=== PATIENT | female | born 1955 | race Caucasian/White ===

== ENCOUNTER → 2020-03-22 10:59 | Outpatient (BNVA) | payer MEDICARE, SELFPAY | PROVIDERS: PCP Internal Medicine; Referring Provider Internal Medicine; Visit Provider Internal Medicine Gastroenterology | DX: R29.898 Other symptoms and signs involving the musculoskeletal system (principal); R07.9 Chest pain, unspecified | CPT/HCPCS: Q3014 ==

== ENCOUNTER → 2020-03-23 13:21 | Outpatient (BNVA) | payer MEDICARE, SELFPAY | PROVIDERS: PCP Internal Medicine; Referring Provider Internal Medicine; Visit Provider Internal Medicine Cardiovascular Disease | DX: I35.0 Nonrheumatic aortic (valve) stenosis (principal); I71.2 Thoracic aortic aneurysm, without rupture; E11.65 Type 2 diabetes mellitus with hyperglycemia; R06.02 Shortness of breath; R07.89 Other chest pain | CPT/HCPCS: 93005; 99202 ==

== ENCOUNTER → 2020-03-28 07:58 | Outpatient (REF) | payer MEDICARE, SELFPAY ==
--- NOTE | 2020-03-28 08:00 | CA_ITS ---
Acquisition Time: 2020-03-28 09:24:21 Total Exercise Time: 00:05:15 Test Indications: cp Medications: see chart Protocol: CAMACHO Max HR: 137 BPM 88% of Pred: 154 BPM Max BP: 180/060 mmHG Max Work Load: 7.0 METS Exercise stress test with exercise 5 min 15 sec of Camacho protocol with mild sob, with reported discomfort under left breast at baseline which did not change with exercise, with isolated PVCs, with normotensive response to exercise, without EKG changes meeting criteria for ischemia. Nuclear images pending. Test reviewed with Dr Coombs. Referred By: Chris Lei Overread By: DEBBIE ISBELL
--- NOTE | 2020-03-28 09:00 | NM_ITS ---
EXERCISE MYOCARDIAL PERFUSION STUDY INDICATION: Chest pain, assess for coronary artery disease and ischemia TECHNIQUE: The patient was brought in for an exercise perfusion study on 03/28/2020. Patient performed exercise as per Ron protocol and was injected 30 mCi of sestamibi once target heart rate was achieved. Images were obtained using the SPECT gamma camera interlaced with the gating device. Images were obtained in supine position. Resting perfusion study was performed on 03/30/2020. Patient was administered 30 mCi of sestamibi intravenously at rest. Images were then obtained in supine position. Total DLP 84mGy-cm. Images were processed with the software and compared side to side in short axis, horizontal long axis and vertical long axis views. FINDINGS: Raw images were reviewed. The stress perfusion study showed diminished tracer uptake along the mid to distal anterolateral wall. With CT attenuation correction, this improves significantly suggesting soft tissue attenuation. The gated study shows normal LV systolic function with calculated LVEF of 72%. LV cavity is normal in size. The gated study shows normal wall thickening and contraction of segments. Resting study shows no significant perfusion abnormality. Gating at rest reveals normal wall motion with ejection fraction at 71%. The findings are consistent with reversible anterolateral perfusion defect but with improvement during CT attenuation correction suggesting soft tissue artifact.. NM/NM cardiolite stress test IMPRESSION: 1. Myocardial perfusion imaging study shows reversible mid to distal anterolateral perfusion defect suspected to be from soft tissue attenuation artifact. Less likely to be from true ischemia. 2. Gated LVEF is 72% during stress and 71% during rest. 3. Transient ischemic dilatation not present. EKG component of the test reported separately.
== END ==
LOC: HO.CARD 07:58
PROVIDERS: PCP Internal Medicine; Visit Provider Internal Medicine Cardiovascular Disease
DX: E11.65 Type 2 diabetes mellitus with hyperglycemia (principal); R06.02 Shortness of breath; R07.89 Other chest pain
CPT/HCPCS: 78452; 93017; A9500

== ENCOUNTER 2020-04-13 08:57 | Outpatient (REF) | payer MEDICARE, SELFPAY ==
[2020-04-13 09:34] LABS: Glucose Urine UA NEG (NEG); Leukocyte Esterase Urine NEG (NEG); Nitrite Urine NEG (NEG); Urine Blood NEG (NEG); Urine Ketones NEG (NEG); Urine Protein NEG (NEG-TRACE)
[2020-04-13 09:36] LABS: Appearance Urine CLEAR; Color Urine YELLOW
[2020-04-13 09:54] LABS: Cholesterol 239 mg/dL; HDL Cholesterol 52 mg/dL; LDL Cholesterol Calculated 156 mg/dl; Triglycerides 156 mg/dL
== END 2020-04-13 08:58 | disposition home or self-care (01) ==
LOC: HO.LAB 08:57
PROVIDERS: Absent Provider Internal Medicine Cardiovascular Disease; PCP Internal Medicine; Visit Provider Internal Medicine
DX: I35.0 Nonrheumatic aortic (valve) stenosis (principal); E11.65 Type 2 diabetes mellitus with hyperglycemia; M54.9 Dorsalgia, unspecified
CPT/HCPCS: 80061; 81003

== ENCOUNTER 2020-04-14 12:40 | Outpatient (REF) | payer MEDICARE, SELFPAY ==
--- NOTE | 2020-04-14 12:45 | XR_ITS ---
EXAMINATION: XR LUMBOSACRAL SPINE XR THORACIC SPINE CLINICAL INFORMATION: Dorsalgia COMPARISON: Lateral chest radiograph 12/25/2018 TECHNIQUE: AP and lateral views of the lumbar spine with coned down AP and lateral spot views of the lumbosacral junction. AP, lateral, and swimmer's views of the thoracic spine FINDINGS: Normal sagittal alignment of the thoracic spine. Mild loss of disc height at several midthoracic levels. No thoracic compression fracture seen however. There is S-shaped thoracolumbar scoliosis, convex left in the thoracic spine. Posterior elements are intact. Suture anchors in the right humeral head are seen. Mid cervical degenerative disc disease. There is transitional lumbosacral anatomy. 5 nonrib-bearing lumbar type vertebral bodies are seen. The next segment has prominent transverse processes bilaterally and could represent a sixth lumbar segment. There is loss of disc height between this lowest segment and the sacrum, L6-S1. Normal sagittal alignment of the lumbar spine. Mild convex right lumbar rotoscoliosis. Lower lumbar facet arthropathy is present. No lumbar compression fracture. There is anterior osteophytosis from the superior endplate of L3. XR/XR thoracic spine 2V IMPRESSION: No acute osseous abnormality of the thoracic or lumbar spine. S-shaped thoracolumbar scoliosis. Multilevel degenerative changes, fully described above. There is transitional lumbosacral anatomy with 5 nonrib-bearing lumbar type vertebral bodies and a transitional segment with prominent transverse processes designated L6 for this report.
--- NOTE | 2020-04-14 12:45 | XR_ITS ---
EXAMINATION: XR LUMBOSACRAL SPINE XR THORACIC SPINE CLINICAL INFORMATION: Dorsalgia COMPARISON: Lateral chest radiograph 12/25/2018 TECHNIQUE: AP and lateral views of the lumbar spine with coned down AP and lateral spot views of the lumbosacral junction. AP, lateral, and swimmer's views of the thoracic spine FINDINGS: Normal sagittal alignment of the thoracic spine. Mild loss of disc height at several midthoracic levels. No thoracic compression fracture seen however. There is S-shaped thoracolumbar scoliosis, convex left in the thoracic spine. Posterior elements are intact. Suture anchors in the right humeral head are seen. Mid cervical degenerative disc disease. There is transitional lumbosacral anatomy. 5 nonrib-bearing lumbar type vertebral bodies are seen. The next segment has prominent transverse processes bilaterally and could represent a sixth lumbar segment. There is loss of disc height between this lowest segment and the sacrum, L6-S1. Normal sagittal alignment of the lumbar spine. Mild convex right lumbar rotoscoliosis. Lower lumbar facet arthropathy is present. No lumbar compression fracture. There is anterior osteophytosis from the superior endplate of L3. XR/XR lumbar spine 2-3V IMPRESSION: No acute osseous abnormality of the thoracic or lumbar spine. S-shaped thoracolumbar scoliosis. Multilevel degenerative changes, fully described above. There is transitional lumbosacral anatomy with 5 nonrib-bearing lumbar type vertebral bodies and a transitional segment with prominent transverse processes designated L6 for this report.
== END 2020-04-14 12:41 | disposition home or self-care (01) ==
LOC: HO.XRAY 12:40
PROVIDERS: PCP Internal Medicine; Visit Provider Internal Medicine
DX: M54.9 Dorsalgia, unspecified (principal); M54.5 Low back pain
CPT/HCPCS: 72070; 72100

== ENCOUNTER → 2020-04-21 15:03 | Outpatient (BNVA) | payer MEDICARE, SELFPAY | PROVIDERS: PCP Internal Medicine; Visit Provider Internal Medicine Cardiovascular Disease | DX: I35.0 Nonrheumatic aortic (valve) stenosis (principal); I71.2 Thoracic aortic aneurysm, without rupture; R06.02 Shortness of breath | CPT/HCPCS: 99212 ==

== ENCOUNTER → 2020-04-27 08:00 | Outpatient (BNVA) | payer MEDICARE, SELFPAY | PROVIDERS: PCP Internal Medicine; Visit Provider Internal Medicine | DX: E11.65 Type 2 diabetes mellitus with hyperglycemia (principal); E78.5 Hyperlipidemia, unspecified; I10 Essential (primary) hypertension; E55.9 Vitamin D deficiency, unspecified | CPT/HCPCS: 82947; 99202 ==

== ENCOUNTER 2020-04-27 09:38 | Outpatient (REF) | payer MEDICARE, SELFPAY ==
[2020-04-27 10:55] LABS: Alanine Aminotransferase 21 U/L (0-31); Albumin Level 4.4 g/dL (3.5-5.0); Alkaline Phosphatase 68 U/L (39-117); Anion Gap 11 (12-20); Aspartate Amino Transferase 15 U/L (5-31); Bilirubin Total 0.4 mg/dL (0.0-1.0); Blood Urea Nitrogen 17 mg/dL (9-16); Calcium 9.3 mg/dL (8.4-10.2); Carbon Dioxide 29 mmol/L (22-29); Chloride 103 mmol/L (96-108); Cholesterol 164 mg/dL; Estimated Glomerular Filt Rate > 60; Glucose Random 194 mg/dL (60-115); HDL Cholesterol 51 mg/dL; LDL Cholesterol Calculated 86 mg/dl; Potassium 4.8 mmol/l (3.3-5.1); Sodium 138 mmol/L (135-145); Total Protein 7.1 g/dL (6.5-8.0); Triglycerides 135 mg/dL
[2020-04-27 11:00] LABS: Estimated Average Glucose 137 mg/dL; Hemoglobin A1c % 6.4 %
[2020-04-27 11:18] LABS: Vitamin D 25-OH Total 16.2 ng/mL (>30)
[2020-04-27 14:54] LABS: Creatinine Urine 142.68 mg/dL; Microalbum/Creatinine Ratio Ur 5.6 ug/mg cr
[2020-04-28 06:17] LABS: LDL Cholesterol Direct 93 mg/dL (<100)
== END 2020-04-27 09:39 | disposition home or self-care (01) ==
LOC: HO.10HDL 09:38
PROVIDERS: Visit Provider Internal Medicine
DX: E11.65 Type 2 diabetes mellitus with hyperglycemia (principal); E55.9 Vitamin D deficiency, unspecified
CPT/HCPCS: 36415; 80053; 80061; 82043; 82306; 83036; 83721

== ENCOUNTER → 2020-05-04 15:01 | Outpatient (BNVA) | payer MEDICARE, SELFPAY | PROVIDERS: PCP Internal Medicine; Visit Provider Anesthesiology | DX: M79.18 Myalgia, other site (principal) | CPT/HCPCS: 99202 ==

== ENCOUNTER → 2020-05-19 08:57 | Outpatient (BNVA) | payer MEDICARE, SELFPAY | PROVIDERS: PCP Internal Medicine; Visit Provider Dietitian, Registered ==

== ENCOUNTER → 2020-06-17 08:55 | Outpatient (BNVA) | payer MEDICARE, SELFPAY | PROVIDERS: PCP Internal Medicine; Visit Provider Dietitian, Registered ==

== ENCOUNTER → 2020-06-29 10:53 | Outpatient (BNVA) | payer MEDICARE, SELFPAY | PROVIDERS: PCP Internal Medicine; Visit Provider Internal Medicine | DX: E11.65 Type 2 diabetes mellitus with hyperglycemia (principal); E78.5 Hyperlipidemia, unspecified; E55.9 Vitamin D deficiency, unspecified; I10 Essential (primary) hypertension; Z79.84 Long term (current) use of oral hypoglycemic drugs; Z71.3 Dietary counseling and surveillance | CPT/HCPCS: 82947; 99212 ==

== ENCOUNTER → 2020-08-19 09:28 | Outpatient (BNVA) | payer MEDICARE, SELFPAY | PROVIDERS: PCP Internal Medicine; Visit Provider Dietitian, Registered | DX: E11.65 Type 2 diabetes mellitus with hyperglycemia (principal) | CPT/HCPCS: 97803 ==

== ENCOUNTER 2020-09-27 07:32 | Outpatient (REF) | payer MEDICARE, SELFPAY ==
[2020-09-27 09:39] LABS: Estimated Average Glucose 148 mg/dL; Hemoglobin A1c % 6.8 %
[2020-09-27 09:43] LABS: Alanine Aminotransferase 20 U/L (0-31); Albumin Level 4.1 g/dL (3.5-5.0); Alkaline Phosphatase 62 U/L (39-117); Anion Gap 12 (12-20); Aspartate Amino Transferase 18 U/L (5-31); Bilirubin Total 0.7 mg/dL (0.0-1.0); Blood Urea Nitrogen 14 mg/dL (9-16); Calcium 9.2 mg/dL (8.4-10.2); Carbon Dioxide 28 mmol/L (22-29); Chloride 105 mmol/L (96-108); Cholesterol 120 mg/dL; Estimated Glomerular Filt Rate > 60; Glucose Random 135 mg/dL (60-115); HDL Cholesterol 44 mg/dL; LDL Cholesterol Calculated 62 mg/dl; Potassium 4.8 mmol/L (3.3-5.1); Sodium 140 mmol/L (135-145); Total Protein 6.5 g/dL (6.5-8.0); Triglycerides 71 mg/dL
[2020-09-27 10:05] LABS: Vitamin D 25-OH Total 45.7 ng/mL (>30)
[2020-09-28 17:56] LABS: LDL Cholesterol Direct 57 mg/dL (<100)
== END 2020-09-27 07:33 | disposition home or self-care (01) ==
LOC: HO.10HDL 07:32
PROVIDERS: Visit Provider Internal Medicine
DX: E55.9 Vitamin D deficiency, unspecified (principal); E11.65 Type 2 diabetes mellitus with hyperglycemia; I35.0 Nonrheumatic aortic (valve) stenosis
CPT/HCPCS: 36415; 80053; 80061; 82306; 83036; 83721

== ENCOUNTER → 2020-10-05 10:29 | Outpatient (BNVA) | payer MEDICARE, SELFPAY | PROVIDERS: PCP Internal Medicine; Visit Provider Nurse Practitioner Gerontology | DX: E11.65 Type 2 diabetes mellitus with hyperglycemia (principal); E11.40 Type 2 diabetes mellitus with diabetic neuropathy, unspecified; E78.5 Hyperlipidemia, unspecified; E55.9 Vitamin D deficiency, unspecified; I10 Essential (primary) hypertension; I25.10 Atherosclerotic heart disease of native coronary artery without angina pectoris; I71.4 Abdominal aortic aneurysm, without rupture; Z91.018 Allergy to other foods; Z79.82 Long term (current) use of aspirin; Z79.4 Long term (current) use of insulin; Z79.899 Other long term (current) drug therapy | CPT/HCPCS: 82947; 99212 ==

== ENCOUNTER 2020-10-12 16:27 | Outpatient (REF) | payer MEDICARE, SELFPAY ==
--- NOTE | ~2020-10-12 | CT_ITS ---
EXAMINATION: CT CHEST WITHOUT CONTRAST CLINICAL INFORMATION: Chest pain COMPARISON: Chest x-ray December 2019 and barium swallow December 2018 TECHNIQUE: Multidetector volumetric CT imaging of the chest was done. Axial MIP volume rendering provided. Sagittal and coronal reformatted images were obtained. This CT examination was performed using dose optimization techniques as appropriate, variously including the following: *Automated exposure control *Adjustment of mA and/or kV according to patient size (this includes techniques or standardized protocols for targeted exams where dose is matched to indication/reason for exam; i.e. extremities or head) *Use of iterative reconstruction technique DLP: 154 mGy-cm FINDINGS: LUNGS: There is a 5 mm heterogeneous or semisolid superior segment right lower lobe nodule image 221 series 5. On sagittal and coronal reconstructed images this appears linear and may represent an area of subsegmental atelectasis. There is a 6 mm calcified right middle lobe nodule axial image 283 series 5. There is a 3 mm peripheral calcified left lower lobe nodule axial image 297 series 5. MEDIASTINUM: There is wall thickening of the distal esophagus. There is mild coronary artery calcification. The mediastinum is otherwise normal. PLEURA: There is no pleural effusion. No pleural mass or thickening. AXILLA: No lymphadenopathy. UPPER ABDOMEN: Unremarkable. OSSEOUS STRUCTURES: There are mild degenerative changes of the spine. CT/CT chest wo con IMPRESSION: Small pulmonary nodules. According to the UPDATED 2017 Fleischner Society recommendations, the advised follow-up imaging for less than 6 mm nodule: Low risk, no chest CT follow-up and high risk, optional chest CT follow-up in one year. Wall thickening of the mid and distal thoracic esophagus. Fluoroscopy exam or endoscopy should be considered. Mild coronary artery calcification.
== END 2020-10-12 16:28 | disposition home or self-care (01) ==
LOC: HO.CT 16:27
PROVIDERS: PCP Internal Medicine; Visit Provider Internal Medicine
DX: R07.89 Other chest pain (principal)
CPT/HCPCS: 71250

== ENCOUNTER 2020-11-04 15:20 | Outpatient (REF) | payer MEDICARE, SELFPAY ==
--- NOTE | ~2020-11-04 | CT_ITS ---
EXAMINATION: CT SINUS WITHOUT CONTRAST CLINICAL INFORMATION: Sinusitis. COMPARISON: None TECHNIQUE: 2 mm thin axial and reformatted 2 mm thin sagittal and coronal images of the sinuses were obtained without contrast. This CT examination was performed using dose optimization techniques as appropriate, variously including the following: *Automated exposure control *Adjustment of mA and/or kV according to patient size (this includes techniques or standardized protocols for targeted exams where dose is matched to indication/reason for exam; i.e. extremities or head) *Use of iterative reconstruction technique DLP: 90 mGy-cm FINDINGS: FRONTAL SINUSES AND DRAINAGE PATHWAYS: Normal. MAXILLARY SINUSES AND DRAINAGE PATHWAYS: Normal. The infundibula are patent. ETHMOID SINUSES: Normal. The ethmoid roofs are symmetric, with olfactory fossa depth of 0.3 cm on the right and 0.3 cm on the left. SPHENOID SINUSES AND DRAINAGE PATHWAYS: Normal. The sphenoid ostia are patent. The carotid canals are covered by bone. NASAL CAVITY/NASOPHARYNX: The nasal cavity is clear. There is no nasal septal deviation/spurring. The nasopharynx is symmetric. ADDITIONAL RELEVANT FINDINGS: No periapical disease is seen. The TMJs articulate normally. The orbits and skull base soft tissues are unremarkable. The middle ear cavities and mastoid air cells are clear. Limited evaluation demonstrates no acute intracranial findings. CT/CT sinus wo con IMPRESSION: Unremarkable CT sinus exam.
== END 2020-11-04 15:21 | disposition home or self-care (01) ==
LOC: HO.CT 15:20
PROVIDERS: Visit Provider Psychiatry & Neurology Neurology
DX: J32.9 Chronic sinusitis, unspecified (principal)
CPT/HCPCS: 70486

== ENCOUNTER → 2020-11-16 11:12 | Outpatient (BNVA) | payer MEDICARE, SELFPAY | PROVIDERS: PCP Internal Medicine; Visit Provider Internal Medicine | DX: R91.8 Other nonspecific abnormal finding of lung field (principal); R07.9 Chest pain, unspecified | CPT/HCPCS: 99212 ==

== ENCOUNTER 2020-12-20 09:40 | Outpatient (REF) | payer MEDICARE, SELFPAY ==
[2020-12-20 10:50] LABS: MANUAL DIFF FLAG NO
[2020-12-20 11:04] LABS: Basophils Percent Auto 0.6 % (0-2); Eosinophils Absolute Auto 0.1 X10*3/uL (0.0-0.4); Eosinophils Percent Auto 2.6 % (0-4); Hematocrit 39.5 % (37-47); Hemoglobin 13.1 g/dl (12.0-16.0); Imm Gran Abs Auto 0.01 X10*3/uL (0.00-0.03); Imm Gran Pct Auto 0.2 % (0.0-0.4); Lymphocytes Absolute Auto 2.1 X10*3/uL (1.2-4.9); Lymphocytes Percent Auto 38.1 % (20-40); Mean Corpuscular HGB Conc 33.2 g/dl (31.0-35.0); Mean Corpuscular Hemoglobin 28.2 pg (27.0-33.0); Mean Corpuscular Volume 84.9 fL (80-98); Mean Platelet Volume 10.9 fL (9.4-12.3); Monocytes Absolute Auto 0.6 X10*3/uL (0.1-1.2); Monocytes Percent Auto 11.5 % (2-11); Neutrophils Absolute Auto 2.5 X10*3/uL (2.0-8.3); Platelet Count 259 X10*3/uL (160-400); Red Blood Count 4.65 X10*6/uL (4.20-5.50); Red Cell Distribution Width 12.1 % (11.0-16.0); White Blood Count 5.4 X10*3/uL (4.8-10.8)
[2020-12-20 11:44] LABS: Erythrocyte Sedimentation Rate 7 MM/HR (0-20)
[2020-12-20 12:32] LABS: Anion Gap 11 (12-20); Blood Urea Nitrogen 14 mg/dL (9-16); Calcium 9.5 mg/dL (8.4-10.2); Carbon Dioxide 28 mmol/L (22-29); Chloride 103 mmol/L (96-108); Cholesterol 128 mg/dL; Estimated Glomerular Filt Rate > 60; Glucose Random 99 mg/dL (60-115); HDL Cholesterol 46 mg/dL; LDL Cholesterol Calculated 55 mg/dl; Potassium 5.1 mmol/L (3.3-5.1); Sodium 137 mmol/L (135-145); Triglycerides 138 mg/dL
[2020-12-20 12:35] LABS: Appearance Urine CLEAR; Color Urine YELLOW; Glucose Urine UA NEG (NEG); Leukocyte Esterase Urine NEG (NEG); Nitrite Urine NEG (NEG); Specific Gravity - Urine 1.015 (1.005-1.025); Urine Blood NEG (NEG); Urine Ketones NEG (NEG); Urine Protein NEG (NEG-TRACE)
[2020-12-20 13:04] LABS: Bacteria Urine TRACE /LPF; RBC Urine 0 /HPF (0); Squamous Epithelial Cell Urine 1+ /LPF; WBC Urine 0 /HPF (0-4)
[2020-12-20 13:58] LABS: Creatinine Urine 44.63 mg/dL
== END 2020-12-20 09:41 | disposition home or self-care (01) ==
LOC: HO.LAB 09:40
PROVIDERS: Internal Medicine; PCP Internal Medicine; Visit Provider Psychiatry & Neurology Neurology
DX: E11.65 Type 2 diabetes mellitus with hyperglycemia (principal); I35.0 Nonrheumatic aortic (valve) stenosis; R13.10 Dysphagia, unspecified
CPT/HCPCS: 36415; 80048; 80061; 81001; 85025; 85652

== ENCOUNTER → 2021-02-17 10:24 | Outpatient (BNVA) | payer MEDICARE, SELFPAY | PROVIDERS: PCP Internal Medicine; Visit Provider Dietitian, Registered | DX: E11.65 Type 2 diabetes mellitus with hyperglycemia (principal) | CPT/HCPCS: 97803 ==

== ENCOUNTER 2021-05-30 11:33 | Outpatient (REF) | payer MEDICARE, SELFPAY ==
--- NOTE | ~2021-05-30 | US_ITS ---
EXAMINATION: US THYROID CLINICAL INFORMATION: Nontoxic single thyroid nodule. COMPARISON: MRI thoracic spine 03/11/2021. TECHNIQUE: Linear transducer grayscale and color Doppler examination with attention to the region of the thyroid. FINDINGS: SIZE: Measurements of the thyroid lobes and nodules are given in sagittal, anteroposterior and transverse dimensions respectively. Right Thyroid Lobe: 5.4 x 2.5 x 1.8 cm, volume 12.7 mL. Parenchyma: The gland echotexture is homogeneous. Thyroid vascularity is normal. Left Thyroid Lobe: 4.8 x 1.3 x 1.7 cm, volume 5.5 mL. Parenchyma: The gland echotexture is homogeneous. Thyroid vascularity is normal. Isthmus: 0.3 cm in maximum AP dimension. Estimated total number of nodules greater than or equal to 1 cm: 3. 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 Location: Right mid pole. Size: 2.2 x 1.4 x 1.7 cm, volume 2.94 mL. Nodule characteristics: Composition: Solid/almost completely solid (2). Echogenicity: Hypoechoic (2). Shape: Not taller than wide (0). Margins: Smooth (0). Echogenic Foci: Punctate echogenic foci (3). ACR TI-RADS total points: 7 ACR TI-RADS category: 5 2. Location: Right lower pole. Size: 1.4 x 0.5 x 0.9 cm, volume 0.25 mL. Nodule characteristics: Composition: Mixed cystic and solid (1). Echogenicity: Very hypoechoic (3). Shape: Not taller than wide (0). Margins: Smooth (0). Echogenic Foci: Punctate echogenic foci (3). ACR TI-RADS total points: 7 ACR TI-RADS category: 5 3. Location: Right lower pole. Size: 0.7 x 0.5 x 0.6 cm, volume 0.11 mL. Nodule characteristics: Composition: Spongiform (0). ACR TI-RADS total points: 0 ACR TI-RADS category: 1 4. Location: Right upper pole. Size: 0.4 x 0.4 x 0.4 cm, volume 0.3 mL. Nodule characteristics: Composition: Spongiform (0). ACR TI-RADS total points: 0 ACR TI-RADS category: 1 5. Location: Left mid pole. Size: 1.1 x 0.7 x 0.8 cm, volume 0.28 mL. Nodule characteristics: Composition: Solid/almost completely solid (2). Echogenicity: Isoechoic (1). Shape: Not taller than wide (0). Margins: Smooth (0). Echogenic Foci: None (0). ACR TI-RADS total points: 3 ACR TI-RADS category: 3 NODES: No lymphadenopathy is seen in the tissue surrounding the thyroid gland. US/US thyroid IMPRESSION: Two suspicious solid nodules in the mid pole and lower pole right lobe. Recommend ultrasound-guided fine-needle biopsy. Thyroid enlargement with significant enlargement of right lobe. ACR TI-RADS RECOMMENDATION REFERENCE: Ultrasound-guided fine-needle aspiration, followup ultrasound, no further follow up. * TR1 (0 point) and TR 2 (2 points): No FNA or follow up * TR3 (3 points): FNA if more than or equal to 2.5 cm in maximum dimension, followup ultrasound in 1, 3 and 5 years if 1.5 to 2.4 cm in maximum dimension. * TR4 (4-6 points): FNA if more than or equal to 1.5 cm in maximum dimension, followup ultrasound in 1, 2, 3 and 5 years if 1 to 1.4 cm in maximum dimension. * TR5 (more than or equal to 7 points): FNA if more than or equal to 1 cm in maximum dimension, followup ultrasound every year for 5 years if 0.5 to 0.9 cm in maximum dimension. * TR3, TR4 or TR5 nodules that are below the size threshold for follow up receive no follow up. Before meals
== END 2021-05-30 11:34 | disposition home or self-care (01) ==
LOC: HO.HMGCX 11:33
PROVIDERS: PCP Internal Medicine; Visit Provider Internal Medicine
DX: E04.1 Nontoxic single thyroid nodule (principal)
CPT/HCPCS: 76536

== ENCOUNTER → 2021-06-12 09:20 | Outpatient (REF) | payer MEDICARE, SELFPAY ==
--- NOTE | 2021-06-12 09:25 | CA_ITS ---
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 The calculated ejection fraction is 67% by biplane method. - Mild aortic valve calcification but there is no significant stenosis. - Small plaque is seen in the sino tubular ridge. Findings Left Ventricle Normal left ventricular cavity size. The left ventricular systolic function is normal. The calculated ejection fraction is 67% by biplane method. There is no evidence of regional wall motion abnormalities. Diastolic function is normal for age. There is mild septal asymmetric hypertrophy. Right Ventricle Normal right ventricular cavity size and systolic function. Atria Both atria are normal in size. Aortic Valve There is a normal trileaflet aortic valve. There is mild calcification of the aortic valve. The peak aortic velocity is 1.95 m/s with a calculated peak gradient of 15 mmHg. The mean gradient is 8 mmHg. The aortic valve area is 1.91 cm2. There is trace (trivial) aortic valve regurgitation. No significant stenosis. Mitral Valve There is mild mitral annular calcification. There is mild mitral valve regurgitation. There is no mitral valve stenosis. Pulmonic Valve The pulmonic valve was not well visualized. Tricuspid Valve Normal tricuspid valve structure. There is trace tricuspid valve regurgitation. The pulmonary artery systolic pressure is normal. Great Vessels The aortic annulus, sinuses of valsalva, and asc aorta are normal in size. Small plaque is seen in the sino tubular ridge. Venous The inferior vena cava is normal in size and collapses greater than 50% with inspiration. Pericardium/Pleural There is no evidence of pericardial effusion. Prior Study Comparison No significant change compared to prior study dated: 12/26/2018. Measurements 2D Linear Measurements IVSd: 1.11 0.6-0.9/0.6-1.0 cm LVIDd: 4.39 3.9-5.3/4.2-5.9 cm LVIDd Index: 2.55 2.4-3.2/2.2-3.1 cm/m2 LVIDs: 3.06 2.0-3.6 cm LVPWd: 0.84 0.7-1.1 cm Ao Root: 2.90 2.1-3.5 cm LA Diam: 3.40 2.7-3.8/3.0-4.0 cm LAIDs Index: 1.98 1.5-2.3 cm/m2 LV Mass: 177.42 67-162/88-224 g LV Mass Index: 103.15 43-95/49-115 g/m2 LVOT Diam: 2.00 3.0+(-)1.3 cm 2D Systolic Function EF 4C: 67.90 >55% EF 2C: 65.00 >55% EF BiP: 67.20 >55% Mitral Valve MV Pk E: 0.79 MV PK A: 1.25 MV Decel Time: 332.00 E/A: 0.60 E'Lateral: 9.57 E'Medial: 7.18 E/E' Med: 11.00 E/E' Lat: 8.30 PHT: 97.00 MVA PHT: 2.27 Decel [place]: 2.38 Aortic Valve AoV Pk Bradley: 1.95 AoV Mn Bradley: 1.29 AoV VTI: 0.48 AoV Pk Grad: 15.00 Aov Mn Grad: 8.00 LIANNE Cont.VTI: 1.91 LVOT LVOT Pk Bradley: 1.10 LVOT Mn Bradley: 0.74 LVOT VTI: 0.29 LVOT Pk Grad: 5.00 LVOT Mn Grad: 3.00 LVOT Diam: 2.00 LVOT Area: 3.14 Diastolic Function MV Pk E: 0.79 MV Pk A: 1.25 E/A: 0.60 E'Medial: 7.18 E/E' Med: 11.00 E' Laterial: 9.57 E/E' Lat: 8.30 Right Ventricle TAPSE (mm): 21.50 TVS' Bradley: 10.00 Tricuspid Valve TR Pk Bradley: 2.08 TR Pk Grad: 17.00 RA Press: 3.00 RVSP: 20.00 Great Vessels Aorta Ao Root-2D: 2.90 2.0-3.7 cm Ao Asc: 3.50 2.1-3.4 cm Ao Arch: 3.30 Updated in Other Vendor System with Status of Final Keith Zarate MD electronically signed on 06/12/2021 12:26:55 PM with status of Final
== END ==
LOC: HO.CARD 09:20
PROVIDERS: PCP Internal Medicine; Visit Provider Internal Medicine Cardiovascular Disease
DX: I35.0 Nonrheumatic aortic (valve) stenosis (principal); I71.2 Thoracic aortic aneurysm, without rupture
CPT/HCPCS: 93306

== ENCOUNTER → 2021-06-19 13:54 | Outpatient (BNVA) | payer MEDICARE, SELFPAY | PROVIDERS: PCP Internal Medicine; Referring Provider Internal Medicine; Visit Provider Internal Medicine Cardiovascular Disease | DX: I35.0 Nonrheumatic aortic (valve) stenosis (principal); I10 Essential (primary) hypertension | CPT/HCPCS: 93005; 99212 ==

== ENCOUNTER → 2021-07-12 13:57 | Outpatient (BNVA) | payer MEDICARE, SELFPAY | PROVIDERS: PCP Internal Medicine; Visit Provider Nurse Practitioner Gerontology | DX: E11.40 Type 2 diabetes mellitus with diabetic neuropathy, unspecified (principal); E78.5 Hyperlipidemia, unspecified; E55.9 Vitamin D deficiency, unspecified; I10 Essential (primary) hypertension; Z79.84 Long term (current) use of oral hypoglycemic drugs | CPT/HCPCS: 82947; 83036; 99212 ==

== ENCOUNTER → 2021-08-18 10:01 | Outpatient (BNVA) | payer MEDICARE, SELFPAY | PROVIDERS: PCP Internal Medicine; Visit Provider Dietitian, Registered | DX: E11.9 Type 2 diabetes mellitus without complications (principal) | CPT/HCPCS: 97803 ==

== ENCOUNTER 2021-08-30 10:38 | Outpatient (REF) | payer MEDICARE, SELFPAY ==
[2021-08-30 13:50] LABS: Alanine Aminotransferase 18 U/L (0-31); Alkaline Phosphatase 50 U/L (39-117); Anion Gap 9 (12-20); Aspartate Amino Transferase 17 U/L (5-31); Bilirubin Total 0.4 mg/dL (0.0-1.0); Blood Urea Nitrogen 16 mg/dL (9-16); Calcium 9.3 mg/dL (8.4-10.2); Carbon Dioxide 27 mmol/L (22-29); Chloride 106 mmol/L (96-108); Estimated Glomerular Filt Rate > 60; Glucose Random 115 mg/dL (60-115); Potassium 4.6 mmol/L (3.3-5.1); Sodium 137 mmol/L (135-145); Total Protein 6.1 g/dL (6.5-8.0)
[2021-08-30 14:09] LABS: Free T4 (Free Thyroxine) 1.02 ng/dL (0.71-1.85); Thyroid Stimulating Hormone 0.46 uIU/mL (0.32-4.0)
[2021-08-30 14:14] LABS: Vitamin B12 310 pg/mL (200-900)
[2021-08-30 14:16] LABS: TSH reflex Free T4 0.44 uIU/mL (0.32-4.0)
[2021-08-31 22:45] LABS: LDL Cholesterol Direct 47 mg/dL (<100)
[2021-09-03 12:06] LABS: Vitamin D 25-OH, D2 <4 ng/mL; Vitamin D 25-OH, D3 29 ng/mL; Vitamin D 25-OH, Total 29 ng/mL (30-100)
== END 2021-08-30 10:39 | disposition home or self-care (01) ==
LOC: HO.10HDL 10:38
PROVIDERS: PCP Internal Medicine; Visit Provider Internal Medicine Endocrinology, Diabetes & Metabolism
DX: Z00.01 Encounter for general adult medical examination with abnormal findings (principal); E04.1 Nontoxic single thyroid nodule; K22.4 Dyskinesia of esophagus; E11.40 Type 2 diabetes mellitus with diabetic neuropathy, unspecified; E55.9 Vitamin D deficiency, unspecified; E78.5 Hyperlipidemia, unspecified; I10 Essential (primary) hypertension
CPT/HCPCS: 36415; 80053; 82306; 82607; 83721; 84439; 84443; 99212

== ENCOUNTER 2021-10-26 10:29 | Outpatient (REF) | payer MEDICARE, SELFPAY ==
--- NOTE | 2021-10-26 11:27 | P.BOP_ITS ---
Brief Operative Note Date of Service: 10/26/21 Pre-op diagnosis: Multinodular Thyroid Procedure: This is doctor Charu Alcaraz. This is an ultrasound-guided fine-needle aspiration report. Date of Examination: Indication: Multinodular Thyroid Porcedure: Procedure was explained to the patient. Alternatives, the risk and benefits were discussed. Written consent was obtained. A time-out was also obtained. After sterile preparation, fine-needle aspiration of a Right mid pole 2.2 cm thyroid nodule was performed using direct ultrasound guidance to confirm accurate needle placement. Four aspirations were made using 27 gauge needles. Samples were submitted for cytology. 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 The patient tolerated the procedure well. Aftercare instructions were provided. Impression: Uncomplicated fine needle aspiration biopsy of a Right mid pole 2.2 cm thyroid nodule under ultrasound guidance. The patient had additional nodules bilaterally that were subcentimeter, so no FNA biopsy was completed of these nodules. Surgeon: Charu Alcaraz, DO Was an Control Clerk Repairs used for this Procedure?: No Estimated blood loss (mL): 0
[2021-10-26] MEDS: Lidocaine HCl 1 % 20 ML VIAL 5 ML SUBCUT (11:42)
== END 2021-10-26 10:30 | disposition home or self-care (01) ==
LOC: HO.US 10:29
PROVIDERS: Visit Provider Internal Medicine Endocrinology, Diabetes & Metabolism
DX: E04.1 Nontoxic single thyroid nodule (principal)
CPT/HCPCS: 10005; 88172; 88173

== ENCOUNTER 2021-11-07 07:46 | Outpatient (REF) | payer MEDICARE, SELFPAY ==
[2021-11-07 10:58] LABS: Alanine Aminotransferase 13 U/L (0-31); Alkaline Phosphatase 50 U/L (39-117); Anion Gap 9 (12-20); Aspartate Amino Transferase 15 U/L (5-31); Bilirubin Total 0.5 mg/dL (0.0-1.0); Blood Urea Nitrogen 17 mg/dL (9-16); Calcium 8.9 mg/dL (8.4-10.2); Carbon Dioxide 29 mmol/L (22-29); Chloride 106 mmol/L (96-108); Cholesterol 113 mg/dL; Estimated Glomerular Filt Rate > 60; Glucose Fasting 98 mg/dL (60-99); HDL Cholesterol 40 mg/dL; LDL Cholesterol Calculated 58 mg/dl; Potassium 4.4 mmol/L (3.3-5.1); Sodium 140 mmol/L (135-145); Total Protein 6.4 g/dL (6.5-8.0); Triglycerides 75 mg/dL
[2021-11-07 11:20] LABS: Vitamin D 25-OH Total 30.7 ng/mL (>30)
[2021-11-07 11:43] LABS: Creatinine Urine 87.75 mg/dL; Microalbum/Creatinine Ratio Ur 6.8 ug/mg cr
[2021-11-09 01:27] LABS: LDL Cholesterol Direct 52 mg/dL (<100)
== END 2021-11-07 07:47 | disposition home or self-care (01) ==
LOC: HO.10HDL 07:46
PROVIDERS: Visit Provider Nurse Practitioner Gerontology
DX: E11.9 Type 2 diabetes mellitus without complications (principal); E55.9 Vitamin D deficiency, unspecified
CPT/HCPCS: 36415; 80053; 80061; 82043; 82306; 83721

== ENCOUNTER → 2021-11-09 13:29 | Outpatient (BNVA) | payer MEDICARE, SELFPAY | PROVIDERS: PCP Internal Medicine; Visit Provider Internal Medicine | DX: E04.1 Nontoxic single thyroid nodule (principal) | CPT/HCPCS: 99212 ==

== ENCOUNTER 2021-11-18 16:27 | Emergency (ER) | payer MEDICARE, SELFPAY ==
[2021-11-18 16:29] VITALS: BP 131/47; PULSE 74; RESP 16; TEMP 37.1; O2SAT 97; BMI 23.3
--- NOTE | 2021-11-18 16:49 | ED.SKABFB ---
HPI - Skin/Abscess/Foreign Bdy General Chief complaint: Skin/Abscess/Foreign Body Stated complaint: Cat Bite 11/18/21 Time Seen by Provider: 11/18/21 16:40 Source: patient Mode of arrival: ambulatory Limitations: no limitations History of Present Illness HPI narrative: 66-year-old female who presents with some redness to the right hand after her cat bit her earlier today. Patient tells me that her cat is an indoor cat. The cat did receive the original rabies vaccination but has not received wanting several years. The patient is able to monitor the cap for any change in behavior. She tells me that her tetanus is out of date. She has no associated pain, fevers, chills, numbness, tingling of the extremity. She is right-hand dominant. Related Data Previous Rx's Medication Instructions Recorded blood-glucose meter #1 ea 02/22/20 blood sugar diagnostic (FreeStyle #10 ea 04/27/20 Lite Strips) glucose 4 gram chewable tablet 4 g PO Q15M PRN hypoglycemia 30 04/27/20 days #90 tabs Diabetic shoes #1 ea 06/22/20 cholecalciferol (vitamin D3) 50 50 mcg PO DAILY 30 days #30 caps 06/29/20 mcg (2,000 unit) capsule pantoprazole 40 mg tablet,delayed 40 mg PO BID #180 tabs 05/05/21 release dulaglutide 1.5 mg/0.5 mL 1.5 mg (0.5 mL) subcut QWEEK 30 06/08/21 subcutaneous pen injector days #2 mL (Trulicity) lancets 30 gauge ([facility] ea 08/09/21 Lancets) blood sugar diagnostic 1 strip miscellaneous TID for 08/16/21 diabetes mellitus #250 strips lisinopril 5 mg tablet 5 mg PO DAILY 90 days #90 tabs 08/25/21 diabetic shoes #1 ea 08/30/21 atorvastatin 40 mg tablet 40 mg PO DAILY 30 days #30 tabs 10/23/21 metformin 500 mg tablet,extended 1,000 mg PO BID 30 days #120 tabs 10/23/21 release 24 hr polymyxin B sulfate 10,000 1 drp ophthalmic (eye) QID 7 days 10/28/21 unit-trimethoprim 1 mg/mL eye drops #10 mL amoxicillin 875 mg-potassium 1 tab PO BID #14 tabs 11/18/21 clavulanate 125 mg tablet Allergies Allergy/AdvReac Type Severity Reaction Status Date / Time coconut Allergy Severe Blisters Verified 11/09/21 13:45 Review of Systems Review of Systems: Yes all other systems are reviewed and are negative Constitutional: Constitutional: Reports no additional constitutional complaints, Denies body ache(s), Denies chills, Denies fever(s), Denies headache(s) and Denies weakness Eyes: Eyes: Reports no additional eye complaints and Denies change in vision ENT: Reports system reviewed and no additional complaints, except as documented, Denies dizziness, Denies headache(s), Denies nasal congestion, Denies nasal discharge and Denies neck pain Cardiovascular: Cardiovascular: Reports no additional cardiovascular complaints, Denies chest pain, Denies leg edema and Denies dyspnea Respiratory: Respiratory: Reports no additional respiratory complaints, Denies cough and Denies dyspnea Gastrointestinal: Gastrointestinal: Reports no additional gastrointestinal complaints, Denies abdominal pain, Denies diarrhea, Denies nausea and Denies vomiting Genitourinary: Genitourinary: Reports no additional female genitourinary complaints and Denies urinary incontinence Musculoskeletal: Musculoskeletal: Reports no additional musculoskeletal complaints, Denies back pain, Denies arthralgias, Denies joint swelling, Denies neck pain, Denies numbness and Denies tingling Integumentary/Breasts: Skin/Breast: Reports system reviewed and no additional complaints, except as docu, Reports swelling, Reports erythema and Denies rash Neurologic: Reports system reviewed and no additional complaints, except as documented, Denies Abnormal speech present, Denies dizziness, Denies headache(s), Denies numbness, Denies tingling and Denies weakness [facility] Past Medical History Attestation statement: The following information was validated with the patient. Source: old records reviewed and nursing notes reviewed Medical History Aortic stenosis Ascending aortic aneurysm Back pain HLD (hyperlipidemia) HTN (hypertension) Myofascial pain syndrome Pulmonary nodules T2DM (type 2 diabetes mellitus) Uncontrolled diabetes mellitus Vitamin D deficiency Surgical History Hx of biopsy Hx of endoscopy Hx of shoulder surgery Family History Family History Father No problems noted. Mother Hx of arteritis Social History Social History Household Members: Family and Children Housing: House Alcohol intake: never Patient Tobacco Use Status: Never used Tobacco e-Cigarette/Vaping Use: Never Used Advance Directives: No Advance Directives Information Provided: No Current occupational status: retired Cognitive needs: No Hearing needs: No Vision needs: Yes Physical Exam Vital Signs: Vital Signs: Last Vital Signs Temp 98.7 F 11/18/21 16:29 Pulse 74 11/18/21 16:29 Resp 16 11/18/21 16:29 BP 131/47 L 11/18/21 16:29 Pulse Ox 97 11/18/21 16:29 O2 Del Method 11/18/21 16:29 BMI result Body Mass Index 23.3 Const: General: cooperative, healthy appearing, comfortable and no acute distress Orientation/consciousness: patient oriented x3 Limitations: no limitations HEENT: Head: Yes normal to inspection Ears: hearing grossly normal bilaterally General nose exam: Normal external nose present Face and sinus: Yes normal facial exam Mouth: Normal oral and palatal mucosa present Throat: Yes posterior oropharynx normal Eyes: General: appearance normal, both eyes and all related structures Pupils: Equal, round and reactive pupils present Neck: Neck: Yes normal visual inspection Chest: Chest palpation & inspection: normal inspection of the chest Resp: Effort & Inspection: normal respiratory effort Auscultation: clear to auscultation bilaterally Cardio: Rate: regular rate Rhythm: regular rhythm Peripheral pulses: Peripheral pulses 2+ throughout GI: Inspection: Yes normal to inspection Palpation (GI): Soft to palpation and nontender Auscultation: normal bowel sounds Back/Spine/Pelvis: Thoracic/Lumbar Spine: thoracic and lumbar spine normal to inspection Skin: General skin exam: no rashes or lesions noted Neuro: General: patient oriented x3, no focal motor deficits and normal sensation to monofilament Cranial nerves: Yes Equal, round and reactive pupils present Cognition (Neuro): normal cognition Speech: No Abnormal speech present Gait exam (Neuro): Normal gait present Motor exam (neuro): 5/5 motor strength present throughout Extrem: Other: Over the dorsal right hand there are several puncture sites noted. There is some local swelling around the site and some local redness. There is full range of motion of the hand with no difficulty or pain on exam. Patient is able to also move the wrist with no difficulty. Course Course Course Narrative: reviewed worrisome signs and symptoms with the patient and when to return to the emergency department. They are aware to return for any redness, streaking, fever. The patient took a picture of her hand on her phone MDM - Skin/Abscess/Foreign Bdy MDM Narrative Medical decision making narrative: 66-year-old female who is [id number] here with redness and swelling to her right hand after her own cat bit her hand earlier today. Patient will need tetanus, prophylactic antibiotics the CT has had rabies vaccines but they are unsure if she is up-to-date. The cat is an indoor cat and they are able to watch the cat at home and monitor for any behavior change Medical Records Attestation: I reviewed the patient's medical records. Lab Data Attestation: I reviewed the patient's lab results. Discharge Plan Discharge Clinical Impression: Cat bite of right hand Patient Disposition: Home, Self-Care Instructions: Animal Bite (ED) Additional Instructions: Return for fever, redness, streaking up the arm Prescriptions: New amoxicillin-pot clavulanate 875-125 mg tablet 1 tab PO BID Qty: 14 0RF No Action (DME) blood-glucose meter Kit See Rx Instructions .ROUTE .MEDSUPPLY Qty: 1 0RF Rx Instructions: As directed, One Touch device compatible- may substitute pantoprazole 40 mg tablet,delayed release (DR/EC) 40 mg PO BID Qty: 180 0RF Trulicity 1.5 mg/0.5 mL pen injector 1.5 mg subcut QWEEK 30 Days Qty: 2 6RF (DME) lancets [OneTouch Delica Lancets] 30 gauge misc See Rx Instructions .ROUTE .MEDSUPPLY Qty: 100 11RF Rx Instructions: As directed OneTouch Ultra Blue Test Strip Strip 1 strip miscellaneous TID Qty: 250 5RF lisinopril 5 mg tablet 5 mg PO DAILY 90 Days Qty: 90 3RF metformin 500 mg tablet extended release 24 hr 1,000 mg PO BID 30 Days Qty: 120 6RF atorvastatin 40 mg tablet 40 mg PO DAILY 30 Days Qty: 30 6RF (DME) Diabetic shoes See Rx Instructions .Route .MEDSUPPLY Qty: 1 0RF Rx Instructions: As directed (DME) diabetic shoes 9.5 See Rx Instructions .Route .MEDSUPPLY Qty: 1 0RF Rx Instructions: As directed polymyxin B sulf-trimethoprim 10,000 unit- 1 mg/mL drops 1 drp ophthalmic (eye) QID 7 Days Qty: 10 0RF Rx Instructions: while awake; do not exceed 6 doses in 24 hours cholecalciferol (vitamin D3) 50 mcg (2,000 unit) capsule 50 mcg PO DAILY 30 Days Qty: 30 11RF (DME) FreeStyle Lite Strips Strip See Rx Instructions .ROUTE .MEDSUPPLY Qty: 10 0RF Rx Instructions: As directed glucose 4 gram tablet,chewable 4 g PO Q15M PRN (Reason: hypoglycemia) 30 Days Qty: 90 0RF Rx Instructions: until symptoms of low blood sugar are controlled Referrals: Kal Hutchins MD [Primary Care Provider] -
[2021-11-18 16:53] VITALS: BP 120/60; PULSE 68; TEMP 36.6; O2SAT 98
[2021-11-18] MEDS: Diphth,Pertus(ACell),Tet Adult 0.5 ML SYRINGE IM (17:00)
== END 2021-11-18 17:11 | disposition home or self-care (01) ==
PROVIDERS: Emergency Provider Emergency Medicine; PCP Internal Medicine
DX: S61.451A Open bite of right hand, initial encounter (principal); W55.01XA Bitten by cat, initial encounter; Y93.9 Activity, unspecified; Y92.019 Unspecified place in single-family (private) house as the place of occurrence of the external cause; Y99.9 Unspecified external cause status; E11.9 Type 2 diabetes mellitus without complications; I10 Essential (primary) hypertension; E78.5 Hyperlipidemia, unspecified; Z79.02 Long term (current) use of antithrombotics/antiplatelets; Z79.899 Other long term (current) drug therapy; Z79.84 Long term (current) use of oral hypoglycemic drugs
CPT/HCPCS: 90471; 90715; 99282; 99284

== ENCOUNTER → 2022-03-14 08:57 | Outpatient (BNVA) | payer MEDICARE, SELFPAY | PROVIDERS: PCP Internal Medicine; Visit Provider Internal Medicine Endocrinology, Diabetes & Metabolism | DX: E11.65 Type 2 diabetes mellitus with hyperglycemia (principal); E04.1 Nontoxic single thyroid nodule; Z79.84 Long term (current) use of oral hypoglycemic drugs | CPT/HCPCS: 82947; 83036; 99212 ==

== ENCOUNTER 2022-03-27 07:51 | Outpatient (REF) | payer MEDICARE, SELFPAY ==
[2022-03-27 11:52] LABS: MANUAL DIFF FLAG NO
[2022-03-27 12:17] LABS: Basophils Percent Auto 0.5 % (0-2); Eosinophils Absolute Auto 0.2 X10*3/uL (0.0-0.4); Hematocrit 38.1 % (37.0-47.0); Hemoglobin 12.3 g/dl (12.0-16.0); Imm Gran Abs Auto 0.01 X10*3/uL (0.00-0.03); Imm Gran Pct Auto 0.2 % (0.0-0.4); Lymphocytes Absolute Auto 1.9 X10*3/uL (1.2-4.9); Lymphocytes Percent Auto 33.2 % (20-40); Mean Corpuscular HGB Conc 32.3 g/dl (31.0-35.0); Mean Corpuscular Hemoglobin 27.8 pg (27.0-33.0); Mean Corpuscular Volume 86.2 fL (80.0-98.0); Monocytes Absolute Auto 0.6 X10*3/uL (0.1-1.2); Monocytes Percent Auto 9.7 % (2-11); Neutrophils Absolute Auto 3.1 x10*3/uL (2.0-8.3); Neutrophils Percent Auto 53.4 % (45-73); Platelet Count 228 X10*3/uL (160-400); Red Blood Count 4.42 X10*6/uL (4.20-5.50); Red Cell Distribution Width 12.4 % (11.0-16.0); White Blood Count 5.8 X10*3/uL (4.8-10.8)
[2022-03-27 12:52] LABS: Creatinine Urine 86.68 mg/dL; Microalbum/Creatinine Ratio Ur 5.7 ug/mg cr
[2022-03-27 13:00] LABS: Alanine Aminotransferase 15 U/L (0-31); Alkaline Phosphatase 53 U/L (39-117); Anion Gap 11 (12-20); Aspartate Amino Transferase 16 U/L (5-31); Bilirubin Total 0.5 mg/dL (0.0-1.0); Blood Urea Nitrogen 18 mg/dL (9-16); Calcium 9.2 mg/dL (8.4-10.2); Carbon Dioxide 29 mmol/L (22-29); Chloride 106 mmol/L (96-108); Cholesterol 123 mg/dL; Estimated Glomerular Filt Rate > 60; Glucose Fasting 96 mg/dL (60-99); HDL Cholesterol 46 mg/dL; LDL Cholesterol Calculated 65 mg/dl; Potassium 4.8 mmol/L (3.3-5.1); Sodium 141 mmol/L (135-145); TSH reflex Free T4 0.89 uIU/mL (0.32-4.0); Total Protein 6.4 g/dL (6.5-8.0); Triglycerides 64 mg/dL
== END 2022-03-27 07:52 | disposition home or self-care (01) ==
LOC: HO.HMGCLDS 07:51
PROVIDERS: PCP Internal Medicine; Visit Provider Internal Medicine
DX: E11.40 Type 2 diabetes mellitus with diabetic neuropathy, unspecified (principal); E78.5 Hyperlipidemia, unspecified; G47.9 Sleep disorder, unspecified; I10 Essential (primary) hypertension; M54.9 Dorsalgia, unspecified
CPT/HCPCS: 36415; 80053; 80061; 82043; 84443; 85025

== ENCOUNTER → 2022-07-13 09:06 | Outpatient (BNVA) | payer MEDICARE, SELFPAY | PROVIDERS: PCP Internal Medicine; Referring Provider Internal Medicine; Visit Provider Internal Medicine Gastroenterology | DX: R13.10 Dysphagia, unspecified (principal) | CPT/HCPCS: 99212 ==

== ENCOUNTER 2022-07-19 06:19 | Day surgery (SDC) | payer MEDICARE, SELFPAY ==
[2022-07-19 06:26] VITALS: BMI 24.5
[2022-07-19 06:39] VITALS: BP 128/61; PULSE 67; RESP 16; TEMP 36.2; O2SAT 99
[2022-07-19 06:39] LABS: Glucose, Whole Blood 132 mg/dL (60-115)
--- NOTE | 2022-07-19 06:45 | MHC.SHP ---
Pre-Procedural Eval Section A Date of Service: 07/19/22 The patient is an INPATIENT: No The History & Physical has been completed within 30 days and I have reviewed it.: Yes Section B Chief Complaint: Achalasia of cardia, dysphagia, reflux Allergies: Allergies Allergy/AdvReac Type Severity Reaction Status Date / Time coconut Allergy Severe Blisters Verified 07/19/22 06:42 Plan Diagnosis/Plan: Unchanged I have reviewed the history and physical and performed a pertinent physical examination on my patient. No changes have occurred unless specified. Time Spent With Patient Time: Total time managing care of this patient today ____ minutes.
[2022-07-19] MEDS: Lactated Ringers 1,000 ML 80 ML IVCONT (07:30)
--- NOTE | 2022-07-19 07:51 | W.PM.OPN ---
Operative Note Operative Note Date of Service: 07/19/22 Narrative: Procedure Description: EGD Indication: dysphagia Anesthesia: MAC FLEXIBLE TRANSORAL UPPER GASTROINTESTINAL ENDOSCOPY UPPER ENDOSCOPY Consent: Indications for the procedure and potential complications of bleeding, perforation, reaction to medications and missed diagnosis were discussed with the patient and informed consent was obtained. Instrument: Olympus GIF H 190 J mid size upper endoscope Monitoring: Vital signs and clinical assessment, continuous EKG monitoring, Pulse oximetry, Carbon Dioxide monitoring and blood pressure monitoring were done throughout the procedure. Procedure: The patient was placed in the left lateral decubitis position and pre-procedure medications were administered and a bite block was placed. The endoscope was inserted into the mouth and advanced under direct vision to the third part of duodenum. A careful inspection was made as the upper endoscope was withdrawn including a retroflexed examination of the proximal stomach; Findings and interventions are described below. Findings: Larynx:normal Esophagus: GE junction at 35 cm, diaphragm hiatus at 35 cm, mild esophagitis at GEJ, bx taken also balloon dilation at LES and UES to 20 mm, no tear seen. Stomach: Patchy gastric erythema with atrophic patches and bile acid refluxate noted. Biopsies were obtained. Grade 2 flap valve on retroflexed examination of the cardia. Duodenum: Normal bulb and descending duodenum, Intervention: Biopsies as noted above, balloon dilation Impression/Findings: atrophic gastritis bile acid reflux gastropathy mild esophagitis PLAN: cont with PPI if ongoing complaints then can consider manometry, possible burk
[2022-07-19 08:10] VITALS: BP 102/37; PULSE 73; RESP 17; TEMP 36.5; O2SAT 96
[2022-07-19 08:25] VITALS: BP 107/58; PULSE 78; RESP 18; TEMP 36.4; O2SAT 98
--- NOTE | 2022-07-19 08:34 | P.CONAN_ITS ---
HPI - Anesthesia Eval Consult details Narrative: 66 F for egd dilation PMFSH Active Problems Active Problems: All Active Problems (Updated 03/23/22 @ 15:55 by Kal Hutchins MD) Chest pain (Acute) Left leg weakness (Acute) Left leg weakness (Acute) SOB (shortness of breath) on exertion (Acute) Atypical chest pain (Acute) Diabetic neuropathy (Acute) Non-cardiac chest pain (Acute) Solid nodule of lung 6 mm to 8 mm in diameter (Acute) Esophageal dysfunction (Acute) Difficulty swallowing pills (Acute) Mid back pain on right side (Acute) Thyroid nodule (Acute) Encounter for general adult medical examination with abnormal findings (Acute) Difficulty sleeping (Acute) Pulmonary nodules (Acute) Myofascial pain syndrome (Acute) Vitamin D deficiency (Acute) HLD (hyperlipidemia) (Acute) HTN (hypertension) (Acute) T2DM (type 2 diabetes mellitus) (Acute) Aortic stenosis (Acute) Ascending aortic aneurysm (Acute) Uncontrolled diabetes mellitus (Acute) Back pain (Acute) Past Medical History Medical History Aortic stenosis Ascending aortic aneurysm Back pain HLD (hyperlipidemia) HTN (hypertension) Myofascial pain syndrome Pulmonary nodules T2DM (type 2 diabetes mellitus) Uncontrolled diabetes mellitus Vitamin D deficiency Family History Family History Father No problems noted. Mother Hx of arteritis Family history of problems with anesthesia: No Surgical History Surgical History Hx of biopsy Hx of endoscopy Hx of shoulder surgery Hx of tonsillectomy History of Problems with Anesthesia: No Social History Social History Household Members: Family and Children Housing: House Alcohol intake: never Patient Tobacco Use Status: Never used Tobacco e-Cigarette/Vaping Use: Never Used Use of substances other than those prescribed or required for medical reasons: No Are you DNR?: No Advance Directives: No Advance Directives Information Provided: No Current occupational status: retired Cognitive needs: No Hearing needs: No Vision needs: Yes Meds Allergies Allergy/AdvReac Type Severity Reaction Status Date / Time coconut Allergy Severe Blisters Verified 07/19/22 06:42 Active Medications: Current Medications Lactated Ringer's (Lr) 1,000 mls @ 80 mls/hr IVCONT .[id number] [facility] Home Medications Medication Instructions Recorded Confirmed Last Taken Type alprazolam 0.5 mg tablet 0.5 mg PO BID 03/14/22 07/19/22 Unknown History fluticasone propionate 50 1 spray intranasal DAILY 07/13/22 07/19/22 Unknown History mcg/actuation nasal spray,suspension Exam Exam Date and Time: July 19, 2022 0834 Height,Weight and Vital Signs: Height 5 ft 4 in Weight 143 lb Last Vital Signs Temp 97.5 F 07/19/22 08:25 Pulse 78 07/19/22 08:25 Resp 18 07/19/22 08:25 BP 107/58 L 07/19/22 08:25 Pulse Ox 98 07/19/22 08:25 O2 Del Method Room Air 07/19/22 08:25 O2 Flow Rate 6 07/19/22 08:10 Pertinent Lab Results Pertinent Lab Results: Laboratory Tests 07/19/22 06:34 POC Glucose 132 H Airway Mallampati Class: II TM Dist: >3cm Neck ROM: Full Denture: Upper and Lower Assessment and Plan Assessment Anesthesia Assessment: Anesthesia Plan Discussed and Chart Reviewed Final Anesthetic Review Family History of Problems with Anesthesia: No History of Problems with Anesthesia: No NPO: Yes ASA Class: III Final Preanesthetic Review: No Changes in Pt Med Stat, Meds/Allgs Chart Reviewed, Consent Obtained/Reviewed and Anes Risks/Benef Reviewed Patient Risk: Intermediate Procedure Risk: Low Anesthetic Plan Anesthetic Plan: MAC: Disposition: Standard PACU
== END 2022-07-19 08:48 | disposition home or self-care (01) ==
PROVIDERS: PCP Internal Medicine; Visit Provider Internal Medicine Gastroenterology
PROC: 0DJ08ZZ Inspection of Upper Intestinal Tract, Via Natural or Artificial Opening Endoscopic (ICD-10-PCS; CPT 43235; principal; 2022-07-19 07:30)
DX: R13.10 Dysphagia, unspecified (principal); K21.00 Gastro-esophageal reflux disease with esophagitis, without bleeding; K29.40 Chronic atrophic gastritis without bleeding; K31.89 Other diseases of stomach and duodenum; E11.9 Type 2 diabetes mellitus without complications; I10 Essential (primary) hypertension
CPT/HCPCS: 43249; 43239; 82947; 88305; 88342; C1726

== ENCOUNTER 2022-10-05 07:31 | Outpatient (REF) | payer MEDICARE, SELFPAY ==
[2022-10-05 11:22] LABS: MANUAL DIFF FLAG NO
[2022-10-05 11:27] LABS: Basophils Percent Auto 0.7 % (0-2); Eosinophils Absolute Auto 0.2 X10*3/uL (0.0-0.4); Eosinophils Percent Auto 4.1 % (0-4); Hematocrit 36.8 % (37.0-47.0); Hemoglobin 12.1 g/dl (12.0-16.0); Imm Gran Abs Auto 0.01 X10*3/uL (0.00-0.03); Imm Gran Pct Auto 0.2 % (0.0-0.4); Lymphocytes Absolute Auto 1.5 X10*3/uL (1.2-4.9); Lymphocytes Percent Auto 28.3 % (20-40); Mean Corpuscular HGB Conc 32.9 g/dl (31.0-35.0); Mean Corpuscular Hemoglobin 28.6 pg (27.0-33.0); Monocytes Absolute Auto 0.6 X10*3/uL (0.1-1.2); Monocytes Percent Auto 10.5 % (2-11); Neutrophils Percent Auto 56.2 % (45-73); Platelet Count 227 X10*3/uL (160-400); Red Blood Count 4.23 X10*6/uL (4.20-5.50); Red Cell Distribution Width 12.5 % (11.0-16.0); White Blood Count 5.3 X10*3/uL (4.8-10.8)
[2022-10-05 12:10] LABS: Estimated Average Glucose 126 mg/dL
[2022-10-05 12:15] LABS: Creatinine Urine 81.26 mg/dL; Microalbum/Creatinine Ratio Ur 9.8 ug/mg cr
[2022-10-05 12:33] LABS: Alanine Aminotransferase 14 U/L (0-31); Albumin Level 3.9 g/dL (3.5-5.0); Alkaline Phosphatase 49 U/L (39-117); Anion Gap 11 (12-20); Aspartate Amino Transferase 16 U/L (5-31); Bilirubin Total 0.5 mg/dL (0.0-1.0); Blood Urea Nitrogen 20 mg/dL (9-16); Calcium 9.4 mg/dL (8.4-10.2); Carbon Dioxide 29 mmol/L (22-29); Chloride 103 mmol/L (96-108); Estimated Glomerular Filt Rate > 60; Glucose Fasting 103 mg/dL (60-99); Potassium 4.8 mmol/L (3.3-5.1); Sodium 138 mmol/L (135-145); Total Protein 6.8 g/dL (6.5-8.0)
== END 2022-10-05 07:32 | disposition home or self-care (01) ==
LOC: HO.HMGCLDS 07:31
PROVIDERS: PCP Internal Medicine; Visit Provider Internal Medicine
DX: Z00.01 Encounter for general adult medical examination with abnormal findings (principal); E11.40 Type 2 diabetes mellitus with diabetic neuropathy, unspecified; I10 Essential (primary) hypertension
CPT/HCPCS: 36415; 80053; 82043; 83036; 85025

== ENCOUNTER → 2022-10-19 11:50 | Outpatient (BNVA) | payer MEDICARE, SELFPAY | PROVIDERS: Visit Provider Internal Medicine Gastroenterology | DX: K22.4 Dyskinesia of esophagus (principal) | CPT/HCPCS: 99212 ==

== ENCOUNTER 2023-01-25 15:13 | Outpatient (AMB) | payer MEDICARE, SELFPAY ==
[2023-01-25 15:19] VITALS: BP 100/56; PULSE 76; O2SAT 97; BMI 24.6
--- NOTE | 2023-01-25 15:19 | MHC.PC.OV ---
Vital Signs 01/25/23 15:19 Height 5 ft 4 in Weight 143 lb 6 oz BMI 24.6 BP 100/56 L Blood Pressure Location Lt brachial Position Sitting Pulse 76 Pulse Source Pulse Oximeter Pulse Oximetry (%) 97 Oxygen Delivery Method Room Air Intake Visit Reasons: knee and shoulder pain Allergies coconut Allergy (Severe, Verified 01/25/23 15:19) Blisters Medication List - Last Reconciled 01/25/23 by Kal Hutchins MD alprazolam 0.5 mg PO BID atorvastatin 40 mg PO DAILY blood sugar diagnostic 1 strip miscellaneous TID blood sugar diagnostic (FreeStyle Lite Strips) As directed blood-glucose meter As directed, One Touch device compatible- may substitute cholecalciferol (vitamin D3) 50 mcg PO DAILY 30 days [Diabetic shoes As directed] [diabetic shoes As directed] dulaglutide (Trulicity) 1.5 mg (0.5 mL) subcut QWEEK fluticasone propionate 50 mcg/actuation 1 spray intranasal DAILY gabapentin 300 mg PO BEDTIME 90 days glucose 4 grams PO Q15M PRN 30 days lancets (SolAeroMedTouch Delica Lancets) As directed lisinopril 5 mg PO DAILY 90 days metformin ER 1,000 mg (2 x 500 mg) PO BID 30 days pantoprazole 40 mg PO BID Tobacco use date assessed: 01/25/23 HPI knee and shoulder pain HPI Details Patient is a 67-year-old female came in today to be evaluated for left knee and left shoulder pain for the past few days Patient have osteoarthritis both her knees left knee is slightly swollen today She is also tender over the rotator cuff left shoulder with limited range of motion in extension and abduction. I have ordered x-rays of her left knee and left shoulder I will be placing a referral for her to see orthopedic She may increase gabapentin that she is taking at night and start taking 1 in the morning as well She is also taking Tylenol she may continue that. Her blood pressure is running 100/56, it was 103/51 in October as well I am reducing her lisinopril 5 mg to 2.5 mg. Diabetes management is through endocrinology office. [facility] Medical History Pulmonary nodules Myofascial pain syndrome Vitamin D deficiency HLD (hyperlipidemia) HTN (hypertension) T2DM (type 2 diabetes mellitus) Ascending aortic aneurysm Aortic stenosis Back pain Uncontrolled diabetes mellitus Surgical History Hx of tonsillectomy Hx of biopsy Hx of endoscopy Hx of shoulder surgery Family History Father No problems noted. Mother Hx of arteritis Social History Household Members: Family and Children Housing: House Alcohol intake: never Patient Tobacco Use Status: Never used Tobacco e-Cigarette/Vaping Use: Never Used Current occupational status: retired Cognitive needs: No Hearing needs: No Vision needs: Yes Questionnaire Thrive Questionnaire Date Thrive assessed: 08/30/21 AUDIT C Alcohol Use Questionnaire (AUDIT-C) 1. How often do you have a drink containing alcohol?: Never 3. How often do you have six or more drinks on one occasion?: Never Total Score: 0 Score Reviewed/Action Taken: Yes DICK-7 AMB Questionnaire DICK-7 Date DICK - 7 assessed: 08/30/21 Source: Developed by Drs. Zhen Ghosh, Ruth Abraham, Joseph Shook and colleagues, with an educational natty from [employer]. Review of Systems Const Denies chills and Denies fever(s) ENT Denies epistaxis and Denies nasal discharge Card Denies chest pain Resp Denies chest congestion, Denies cough and Denies hemoptysis GI Denies diarrhea and Denies nausea Skin/Breast Denies rash Neuro Reports no additional complaints Psych Reports no additional complaints Endo Reports no additional complaints Physical exam (Primary Care) Vital Signs: Last Vital Signs Pulse 76 01/25/23 15:19 BP 100/56 L 01/25/23 15:19 Pulse Ox 97 01/25/23 15:19 Oxygen Delivery Method Room Air 01/25/23 15:19 BMI result Body Mass Index 24.6 Tobacco/Smoking Status: Tobacco use Status Tobacco use date assessed 01/25/23 01/25/23 15:22 Patient Tobacco Use Status Never used Tobacco 01/25/23 15:22 e-Cigarette/Vaping Use Never Used 01/25/23 15:22 Thrive Assessment: Date of Thrive Assessment Date Thrive assessed 05/18/22 10/13/23 15:22 Const General: cooperative, comfortable and no acute distress Orientation/consciousness: patient oriented x3 HENMT Head: Yes normocephalic Eyes General: appearance normal, both eyes and all related structures Neck Neck: Yes supple Resp Effort & Inspection: normal respiratory effort, no cough and no stridor Cardio Rhythm: regular rhythm Heart sounds: S1 normal heart sound present and S2 normal heart sound present Skin General skin exam: turgor normal Neuro General: patient oriented x3, tone normal and moves all extremities Extrem Shoulder/upper arm images: 1. Pain with palpation, limited range of motion in abduction and extension Elbow/forearm/wrist images: 1. slight swelling compared to right knee Right lower extremity: no edema Left lower extremity: no edema Assessment and Plan Assessment & Plan (1) Knee pain, left: Code(s): M25.562 - Pain in left knee Qualifiers: Chronicity: acute Qualified Code(s): M25.562 - Pain in left knee (2) Shoulder pain, left: Code(s): M25.512 - Pain in left shoulder Qualifiers: Chronicity: acute Qualified Code(s): M25.512 - Pain in left shoulder (3) T2DM (type 2 diabetes mellitus): Code(s): E11.9 - Type 2 diabetes mellitus without complications Qualifiers: Diabetes mellitus buttermaker helper insulin use: without buttermaker helper use Diabetes mellitus complication status: without complication Qualified Code(s): E11.9 - Type 2 diabetes mellitus without complications (4) Diabetic neuropathy: Code(s): E11.40 - Type 2 diabetes mellitus with diabetic neuropathy, unspecified Qualifiers: Diabetes mellitus type: type 2 Diabetes mellitus complication detail: diabetic polyneuropathy Qualified Code(s): E11.42 - Type 2 diabetes mellitus with diabetic polyneuropathy (5) Pain management: Code(s): R52 - Pain, unspecified Plan Patient is a 67-year-old female came in today to be evaluated for left knee and left shoulder pain for the past few days Patient have osteoarthritis both her knees left knee is slightly swollen today She is also tender over the rotator cuff left shoulder with limited range of motion in extension and abduction. I have ordered x-rays of her left knee and left shoulder I will be placing a referral for her to see orthopedic She may increase gabapentin that she is taking at night for diabetic neuropathy and start taking 1 in the morning as well She is also taking Tylenol she may continue that. Her blood pressure is running 100/56, it was 103/51 in October as well I am reducing her lisinopril 5 mg to 2.5 mg. Diabetes management is through endocrinology office. Orders: Orders XR shoulder LT min 2V Today M25.512 - Pain in left shoulder, M25.562 - Pain in left knee XR knee LT 2V Today M25.512 - Pain in left shoulder, M25.562 - Pain in left knee Referrals Orthopedics Referral M25.512 - Pain in left shoulder, M25.562 - Pain in left knee Medications: New lisinopril 2.5 mg PO DAILY 90 tabs 0RF Discontinued lisinopril Discontinued Reason: Doctor's Order 5 mg PO DAILY 90 days 90 tabs 3RF I10 - Essential (primary) hypertension Coding Level of Care Code Est Pt Level 4 (14815) Diagnoses Acute pain of left knee M25.562 Chronicity: acute Acute pain of left shoulder M25.512 Chronicity: acute Type 2 diabetes mellitus without complication, without long-term current use of insulin E11.9 Diabetes mellitus fdc insulin use: without buttermaker helper use Diabetes mellitus complication status: without complication Diabetic polyneuropathy associated with type 2 diabetes mellitus E11.42 Diabetes mellitus type: type 2 Diabetes mellitus complication detail: diabetic polyneuropathy Pain management R52
== END 2023-01-25 15:39 | disposition home or self-care (01) ==
PROVIDERS: PCP Internal Medicine; Visit Provider Internal Medicine
DX: M25.562 Pain in left knee (principal); M25.512 Pain in left shoulder; E11.42 Type 2 diabetes mellitus with diabetic polyneuropathy
CPT/HCPCS: 99214

== ENCOUNTER 2023-01-25 15:33 | Outpatient (REF) | payer MEDICARE, SELFPAY ==
--- NOTE | ~2023-01-25 | XR_ITS ---
EXAMINATION: XR SHOULDER, LEFT XR KNEE, LEFT CLINICAL INFORMATION: Pain in left knee and left shoulder. COMPARISON: None available. TECHNIQUE: 3 views of the left shoulder. 2 views of the left knee. FINDINGS: Left Knee: 2 views demonstrate mild medial joint space narrowing and tiny tricompartmental osteophytes. Joint effusion. Left Shoulder: Degenerative changes in the imaged upper thoracic spine. Mild degenerative changes in the acromioclavicular joint and glenohumeral joint. Tiny soft tissue calcification lateral to the humeral head. Humeral head appears somewhat superiorly displaced relative to the glenoid. XR/XR knee LT 2V IMPRESSION: 1. Mild degenerative changes left knee with joint effusion. 2. Mild degenerative changes left shoulder. Additional imaging with CT scan or MRI should be considered for better visualization as these modalities are much more sensitive for detection of fracture or other underlying pathology.
--- NOTE | ~2023-01-25 | XR_ITS ---
EXAMINATION: XR SHOULDER, LEFT XR KNEE, LEFT CLINICAL INFORMATION: Pain in left knee and left shoulder. COMPARISON: None available. TECHNIQUE: 3 views of the left shoulder. 2 views of the left knee. FINDINGS: Left Knee: 2 views demonstrate mild medial joint space narrowing and tiny tricompartmental osteophytes. Joint effusion. Left Shoulder: Degenerative changes in the imaged upper thoracic spine. Mild degenerative changes in the acromioclavicular joint and glenohumeral joint. Tiny soft tissue calcification lateral to the humeral head. Humeral head appears somewhat superiorly displaced relative to the glenoid. XR/XR shoulder LT min 2V IMPRESSION: 1. Mild degenerative changes left knee with joint effusion. 2. Mild degenerative changes left shoulder. Additional imaging with CT scan or MRI should be considered for better visualization as these modalities are much more sensitive for detection of fracture or other underlying pathology.
== END 2023-01-25 15:34 | disposition home or self-care (01) ==
LOC: HO.HMGCX 15:33
PROVIDERS: PCP Internal Medicine; Visit Provider Internal Medicine
DX: M25.562 Pain in left knee (principal); M25.512 Pain in left shoulder
CPT/HCPCS: 73030; 73560

== ENCOUNTER 2023-01-30 08:58 | Outpatient (AMB) | payer MEDICARE, SELFPAY ==
--- NOTE | 2023-01-30 09:12 | MHC.OFFVIS ---
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 She describes her pain as sharp in nature. Most of the pain is along the medial aspect of her knee. Her pain has gotten somewhat worse over the last few months. She does not recall any specific traumatic event preceding the onset of her symptoms. She has tried Tylenol and ibuprofen which gave her minimal relief. She has also done physical therapy exercises which aggravated her pain. Allergies coconut Allergy (Severe, Verified 01/30/23 09:16) Blisters Medication List - Last Reconciled 01/30/23 by Nathan Marsh MD alprazolam 0.5 mg PO BID atorvastatin 40 mg PO DAILY blood sugar diagnostic 1 strip miscellaneous TID blood sugar diagnostic (FreeStyle Lite Strips) As directed blood-glucose meter As directed, One Touch device compatible- may substitute celecoxib (Celebrex) 200 mg PO DAILY cholecalciferol (vitamin D3) 50 mcg PO DAILY 30 days [Diabetic shoes As directed] [diabetic shoes As directed] dulaglutide (Trulicity) 1.5 mg (0.5 mL) subcut QWEEK fluticasone propionate 50 mcg/actuation 1 spray intranasal DAILY gabapentin 300 mg PO BEDTIME 90 days glucose 4 grams PO Q15M PRN 30 days lancets (OneTouch Delica Lancets) As directed lisinopril 2.5 mg PO DAILY metformin ER 1,000 mg (2 x 500 mg) PO BID 30 days pantoprazole 40 mg PO BID PFSH Medical History Pulmonary nodules Myofascial pain syndrome Vitamin D deficiency HLD (hyperlipidemia) HTN (hypertension) T2DM (type 2 diabetes mellitus) Ascending aortic aneurysm Aortic stenosis Back pain Uncontrolled diabetes mellitus Surgical History Hx of tonsillectomy Hx of biopsy Hx of endoscopy Hx of shoulder surgery Family History Father No problems noted. Mother Hx of arteritis Social History Household Members: Family and Children Housing: House Alcohol intake: never Patient Tobacco Use Status: Never used Tobacco e-Cigarette/Vaping Use: Never Used Current occupational status: retired Cognitive needs: No Hearing needs: No Vision needs: Yes Physical Exam Vital Signs: BMI result Body Mass Index 24.5 Const Other: Well-nourished well-developed very friendly female awake alert and oriented x3 in no acute distress Extrem Other: Bilateral lower extremity examination shows good capillary refill, no skin lesions noted, normal sensation light touch Left knee examination shows a minimal effusion, minimal crepitus with range of motion, tenderness along her medial joint line, positive Karl's test, no instability Results Reviewed Results Reviewed: X-rays of the patient's left knee show mild diffuse joint space narrowing, no acute bony abnormalities Assessment & Plan Assessment & Plan (1) Knee pain, left: Code(s): M25.562 - Pain in left knee Qualifiers: Chronicity: acute Qualified Code(s): M25.562 - Pain in left knee Plan Ms. Wu presents with intermittent left knee pain most likely due to early degenerative joint disease as well as possible tearing of her medial meniscus. I did have her fitted with a Reaction knee brace. I do find that the brace is a medical necessity because of her symptoms of instability. The brace will help prevent falls and further injury. I also prescribed her a prescription for Celebrex. Activity modifications were discussed at length with the patient. She will contact me prior to her follow-up appointment in 6-8 weeks should any questions or concerns arise. Feel free to call me at any time should questions regarding her orthopedic management arise. Thank you very much for asking me to see this very friendly patient. I spent 22 minutes in reviewing the patient's records and imaging studies, seeing the patient and documenting in the medical record. Medications: New celecoxib (Celebrex) 200 mg PO DAILY 30 caps 3RF Coding Level of Care Code New Pt Level 2 (81205) Diagnoses Acute pain of left knee M25.562 Chronicity: acute
[2023-01-30 09:17] VITALS: BMI 24.5
== END 2023-01-30 09:49 | disposition home or self-care (01) ==
PROVIDERS: PCP Internal Medicine; Visit Provider Orthopaedic Surgery
DX: M25.562 Pain in left knee (principal)
CPT/HCPCS: 99202

== ENCOUNTER → 2023-01-30 08:58 | Outpatient (BNVA) | payer MEDICARE, SELFPAY | PROVIDERS: PCP Internal Medicine; Visit Provider Orthopaedic Surgery | DX: M25.562 Pain in left knee (principal) | CPT/HCPCS: 99202 ==

== ENCOUNTER 2023-02-20 09:21 | Outpatient (AMB) | payer MEDICARE, SELFPAY ==
[2023-02-20 09:22] VITALS: BMI 24.5
--- NOTE | 2023-02-20 09:22 | A.OFFVIS_ITS ---
Intake Vital Signs 02/20/23 09:22 Height 5 ft 4 in Weight 143 lb BMI 24.5 Intake Visit Reasons: New Prob - left shoulder pain Intake Note: Jas is a 67 year old who presents today with her son for a evaluation of her left shoulder pain and weakness. 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 The patient did undergo right shoulder rotator cuff repair surgery in 2016 performed at [facility]. She reports minimal discomfort in her right shoulder. The patient has done physical therapy for 12 weeks over the last 6 months which aggravated her pain. She has also tried Tylenol and anti- inflammatory medicines which gave her minimal relief. The patient has had injections in the past which gave her no relief. The patient reports difficulty lifting her left hand above shoulder height. Allergies coconut Allergy (Severe, Verified 02/20/23 09:23) Blisters Medication List - Last Reconciled 02/20/23 by Nathan Marsh MD alprazolam 0.5 mg PO BID atorvastatin 40 mg PO DAILY blood sugar diagnostic 1 strip miscellaneous TID blood sugar diagnostic (FreeStyle Lite Strips) As directed blood-glucose meter As directed, One Touch device compatible- may substitute celecoxib (Celebrex) 200 mg PO DAILY cholecalciferol (vitamin D3) 50 mcg PO DAILY 30 days [Diabetic shoes As directed] [diabetic shoes As directed] dulaglutide (Trulicity) 1.5 mg (0.5 mL) subcut QWEEK fluticasone propionate 50 mcg/actuation 1 spray intranasal DAILY gabapentin 300 mg PO BEDTIME 90 days glucose 4 grams PO Q15M PRN 30 days lancets (OneTouch Delica Lancets) As directed lisinopril 2.5 mg PO DAILY metformin ER 1,000 mg (2 x 500 mg) PO BID pantoprazole 40 mg PO BID PFSH Medical History Pulmonary nodules Myofascial pain syndrome Vitamin D deficiency HLD (hyperlipidemia) HTN (hypertension) T2DM (type 2 diabetes mellitus) Ascending aortic aneurysm Aortic stenosis Back pain Uncontrolled diabetes mellitus Surgical History Hx of tonsillectomy Hx of biopsy Hx of endoscopy Hx of shoulder surgery Family History Father No problems noted. Mother Hx of arteritis Social History Household Members: Family and Children Housing: House Alcohol intake: never Patient Tobacco Use Status: Never used Tobacco e-Cigarette/Vaping Use: Never Used Current occupational status: retired Cognitive needs: No Hearing needs: No Vision needs: Yes Physical Exam Vital Signs: BMI result Body Mass Index 24.5 Const Other: Well-nourished well-developed very friendly female awake alert and oriented x3 in no acute distress Extrem Other: Bilateral upper extremity examination shows good capillary refill, no skin lesions noted, normal sensation light touch Left shoulder examination shows decreased range of motion when compared to her right shoulder, 4/5 strength with supraspinatus testing, positive impingement signs, tenderness over her acromioclavicular joint, no instability Results Reviewed Results Reviewed: X-rays of the patient's left shoulder show severe acromioclavicular joint narrowing, type 2 acromion, no acute bony abnormalities Assessment & Plan Assessment & Plan (1) Shoulder pain, left: Code(s): M25.512 - Pain in left shoulder Qualifiers: Chronicity: acute Qualified Code(s): M25.512 - Pain in left shoulder Plan: Ms. Wu presents with left shoulder pain and weakness most likely due to a full-thickness rotator cuff tear. Thus, I will send the patient for an MRI of her left shoulder for further evaluation. I will see her back once the MRI is completed to discuss the findings and treatment options. Feel free to call me at any time should questions regarding her orthopedic management arise. I spent 22 minutes in reviewing the patient's records and imaging studies, seeing the patient and documenting in the medical record. Orders: Orders MR shoulder LT wo con Today M25.512 - Pain in left shoulder Coding Level of Care Code Est Pt Level 2 (39301) Diagnoses Acute pain of left shoulder M25.512 Chronicity: acute
== END 2023-02-20 09:37 | disposition home or self-care (01) ==
PROVIDERS: PCP Internal Medicine; Visit Provider Orthopaedic Surgery
DX: M25.512 Pain in left shoulder (principal)
CPT/HCPCS: 99212

== ENCOUNTER → 2023-02-20 09:21 | Outpatient (BNVA) | payer MEDICARE, SELFPAY | PROVIDERS: PCP Internal Medicine; Visit Provider Orthopaedic Surgery | DX: M25.512 Pain in left shoulder (principal) | CPT/HCPCS: 99212 ==

== ENCOUNTER 2023-03-13 08:58 | Outpatient (AMB) | payer MEDICARE, SELFPAY ==
--- NOTE | 2023-03-13 09:11 | MHC.OFFVIS ---
Intake Vital Signs 03/13/23 09:12 Height 5 ft 4 in Weight 150 lb 9.211 oz BMI 25.8 BP 118/60 Blood Pressure Location Lt brachial Position Sitting Pulse 67 Pulse Source Pulse Oximeter Intake Visit Reasons: T2DM and MNG-CONFIRMED Intake Note: Patient presents today to follow up on T2DM and MNG Last Diabetic Eye exam: 02/27/2023 Last Podiatry Visit:None Random Glucose: 165 mg/dl HgA1C: 6.5% Adult Manager Required: Yes Information Interpreted: non-clinical & clinical Accompanied by: Son Allergies coconut Allergy (Severe, Verified 03/13/23 09:17) Blisters Medication List - Last Reconciled 03/13/23 by Zhen Catherine MD alprazolam 0.5 mg PO BID atorvastatin 40 mg PO DAILY blood sugar diagnostic 1 strip miscellaneous TID blood sugar diagnostic (FreeStyle Lite Strips) As directed blood-glucose meter As directed, One Touch device compatible- may substitute celecoxib (Celebrex) 200 mg PO DAILY cholecalciferol (vitamin D3) 50 mcg PO DAILY 30 days [Diabetic shoes As directed] [diabetic shoes As directed] dulaglutide (Trulicity) 1.5 mg (0.5 mL) subcut QWEEK fluticasone propionate 50 mcg/actuation 1 spray intranasal DAILY gabapentin 300 mg PO BEDTIME 90 days glucose 4 grams PO Q15M PRN 30 days lancets (OneTouch Delica Lancets) As directed lisinopril 2.5 mg PO DAILY metformin ER 1,000 mg (2 x 500 mg) PO BID pantoprazole 40 mg PO BID HPI HPI Comments History of Present Illness Details Patient is 67 yo female with DM type 2 diagnosed in 2007 who presents for management of diabetes. 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 Last ophthalmology evaluation: last wk - most recent exam, report pending. 05/06/20 - ou mild non-proliferative diabetic retinopathy Laboratory Tests 12/20/20 10:10 Creatinine 0.70 Estimated GFR > 60 Triglycerides 138 Cholesterol 128 LDL Cholesterol, C alc 55 HDL Cholesterol 46 09/27/20 09/27/20 09/27/20 07:40 07:40 07:40 Creatinine 0.66 Estimated GFR > 60 Hemoglobin A1c % 6.8 Triglycerides 71 Cholesterol 120 D LDL Cholesterol Di rect 57 LDL Cholesterol, C alc 62 HDL Cholesterol 44 25-OH Vitamin D To francine 45.7 PFSH Medical History Pulmonary nodules Myofascial pain syndrome Vitamin D deficiency HLD (hyperlipidemia) HTN (hypertension) T2DM (type 2 diabetes mellitus) Ascending aortic aneurysm Aortic stenosis Back pain Uncontrolled diabetes mellitus Surgical History Hx of tonsillectomy Hx of biopsy Hx of endoscopy Hx of shoulder surgery Family History Father No problems noted. Mother Hx of arteritis Social History Household Members: Family and Children Housing: House Alcohol intake: never Patient Tobacco Use Status: Never used Tobacco e-Cigarette/Vaping Use: Never Used Current occupational status: retired Cognitive needs: No Hearing needs: No Vision needs: Yes Physical Exam Vital Signs: Last Vital Signs Pulse 67 03/13/23 09:12 BP 118/60 03/13/23 09:12 BMI result Body Mass Index 25.8 Absence of Cushingoid features. Absence of acromegalic features. Neck exam reveals nl size thyroid about 15 gms. No thyroid nodules palpable. No carotid bruits present. Lungs CTA. Heart S1 S2, Reg R/R. No M/R/ G. Skin exam reveals absence of vitiligo or acanthosis nigricans. Abdominal exam reveals Soft NT/ND with NA BS. No organomegaly present. Neck Other: . Extrem Other: Visual exam of foot performed. No ulcerations or open lesions. No onchomycosis, no callouses.Pulses 2 + distally Sensation intact to monofilament exam. Vibratory sensation sensed is intact with 128 Hz tuning fork Results AMB Hemoglobin A1c AMB Hemoglobin A1c 6.5 % Last Edit by Chata Tavarez on 03/13/23 09:31 Results Reviewed Results Reviewed: Laboratory Last Values Glucose (Clinic) 165 mg/dL (60-115) H 03/13/23 09:19 Assessment & Plan Assessment & Plan (1) Uncontrolled diabetes mellitus: Code(s): E11.65 - Type 2 diabetes mellitus with hyperglycemia Plan: This is a 66-year-old white female with a history of type 2 diabetes being treated with metformin and Trulicity with glycemic control and known microvascular complications namely retinopathy neuropathy. Plan is to continue the current management. At this point, patient can follow up with primary care provider regarding diabetes. Should her HbA1c deteriorate, she returned back to endocrinology (2) Thyroid nodule: Code(s): E04.1 - Nontoxic single thyroid nodule Plan: Status post FNA of right midpole nodule with benign cytology and subcentimeter nodules. Plan is to repeat thyroid ultrasound about 1-2 years time. This can be done by patient's primary care provider. If is any change in the cyst size or characteristics of the nodules, she be referred back to endocrinology Orders: Orders AMB Hemoglobin A1c Today E11.40 - Type 2 diabetes mellitus with diabetic neuropathy, unspecified Coding Level of Care Code Est Pt Level 4 (89129) Diagnoses Uncontrolled diabetes mellitus E11.65 Thyroid nodule E04.1
[2023-03-13 09:12] VITALS: BP 118/60; PULSE 67; BMI 25.8
[2023-03-13 09:24] LABS: Glucose, Whole Blood 165 mg/dL (60-115)
== END 2023-03-13 09:58 | disposition home or self-care (01) ==
PROVIDERS: PCP Internal Medicine; Visit Provider Internal Medicine Endocrinology, Diabetes & Metabolism
DX: E11.65 Type 2 diabetes mellitus with hyperglycemia (principal); E04.1 Nontoxic single thyroid nodule; E11.40 Type 2 diabetes mellitus with diabetic neuropathy, unspecified
CPT/HCPCS: 99214

== ENCOUNTER → 2023-03-13 08:58 | Outpatient (BNVA) | payer MEDICARE, SELFPAY | PROVIDERS: Visit Provider Internal Medicine Endocrinology, Diabetes & Metabolism | DX: E11.65 Type 2 diabetes mellitus with hyperglycemia (principal); E04.1 Nontoxic single thyroid nodule | CPT/HCPCS: 82947; 83036; 99212 ==

== ENCOUNTER 2023-03-29 07:21 | Outpatient (REF) | payer MEDICARE, SELFPAY ==
--- NOTE | ~2023-03-29 | MR_ITS ---
EXAMINATION: MR SHOULDER WITHOUT CONTRAST, LEFT CLINICAL INFORMATION: Left shoulder pain and decreased range of motion. Difficulty with lifting and sleeping. Injury in June 2022. COMPARISON: Left shoulder radiographs dated 01/25/2023. TECHNIQUE: Multisequence MR imaging of the left shoulder was obtained without contrast on a high-field strength scanner. FINDINGS: ROTATOR CUFF: Moderate supraspinatus tendinosis with anterior full-thickness partial tear measuring approximately 1.9 x 1.7 cm (AP by ML). Posterior articular surface partial tearing measures up to 2.8 cm in ML dimension. Mild infraspinatus and subscapularis tendinosis. No muscle atrophy or fatty infiltration. BICEPS: Heterogeneity of the proximal long head biceps tendon with flattening as it drapes over the lesser tuberosity, consistent with tendinosis and longitudinal partial tearing. CORACOACROMIAL ARCH: The undersurface of the acromion is minimally curved with small subacromial spurs. Mild acromioclavicular osteoarthritis. LABRUM/CAPSULE: No labral tear. Intact inferior joint capsule. GLENOHUMERAL JOINT/MARROW: Intact articular cartilage. [id number] joint effusion with mild synovitis. MR/MR shoulder LT wo con IMPRESSION: 1. Moderate supraspinatus tendinosis with anterior full-thickness partial tearing measuring 1.9 x 1.7 cm (AP x ML). Posterior articular surface partial tearing measures 2.8 cm in ML dimension. Mild infraspinatus and subscapularis tendinosis. 2. Proximal long head biceps tendinosis with longitudinal partial tearing as it drapes over the lesser tuberosity. 3. Mild acromioclavicular osteoarthritis with small subacromial spurs. 4. [id number] glenohumeral joint effusion with mild synovitis.
== END 2023-03-29 07:22 | disposition home or self-care (01) ==
LOC: HO.MRI 07:21
PROVIDERS: PCP Internal Medicine; Visit Provider Orthopaedic Surgery
DX: M25.512 Pain in left shoulder (principal)
CPT/HCPCS: 73221

== ENCOUNTER 2023-04-04 10:06 | Outpatient (AMB) | payer MEDICARE, SELFPAY ==
--- NOTE | 2023-04-04 10:31 | MHC.OFFVIS ---
Intake Intake Visit Reasons: OV- MRI Review shoulder Intake Note: Ms. Wu presents with progressively worsening left shoulder pain and weakness. She describes her pain as sharp and severe in nature. She did undergo right shoulder rotator cuff repair surgery several years ago. She reports mild discomfort in her right shoulder. The patient has had injections in the past which gave her minimal relief. She has also done physical therapy which aggravated her pain. The patient has tried Tylenol and anti-inflammatory medicines which gave her minimal relief. The patient reports weakness when lifting her left hand above shoulder height. Accompanied by: Son Allergies coconut Allergy (Severe, Verified 04/04/23 10:31) Blisters Medication List - Last Reconciled 04/05/23 by Nathna Marsh MD alprazolam 0.5 mg PO BID atorvastatin 40 mg PO DAILY blood sugar diagnostic 1 strip miscellaneous TID blood sugar diagnostic (FreeStyle Lite Strips) As directed blood-glucose meter As directed, One Touch device compatible- may substitute celecoxib (Celebrex) 200 mg PO DAILY cholecalciferol (vitamin D3) 50 mcg PO DAILY 30 days [Diabetic shoes As directed] [diabetic shoes As directed] dulaglutide (Trulicity) 1.5 mg (0.5 mL) subcut QWEEK fluticasone propionate 50 mcg/actuation 1 spray intranasal DAILY gabapentin 300 mg PO BEDTIME 90 days glucose 4 grams PO Q15M PRN 30 days lancets (OneTouch Delica Lancets) As directed lisinopril 2.5 mg PO DAILY metformin ER 1,000 mg (2 x 500 mg) PO BID pantoprazole 40 mg PO BID PFSH Medical History Pulmonary nodules Myofascial pain syndrome Vitamin D deficiency HLD (hyperlipidemia) HTN (hypertension) T2DM (type 2 diabetes mellitus) Ascending aortic aneurysm Aortic stenosis Back pain Uncontrolled diabetes mellitus Surgical History Hx of tonsillectomy Hx of biopsy Hx of endoscopy Hx of shoulder surgery Family History Father No problems noted. Mother Hx of arteritis Social History Household Members: Family and Children Housing: House Alcohol intake: never Patient Tobacco Use Status: Never used Tobacco e-Cigarette/Vaping Use: Never Used Current occupational status: retired Cognitive needs: No Hearing needs: No Vision needs: Yes Physical Exam Const Other: Well-nourished well-developed very friendly female awake alert and oriented x3 in no acute distress Extrem Other: Bilateral upper extremity examination shows good capillary refill, no skin lesions noted, normal sensation light touch Left shoulder examination shows decreased range of motion when compared to her right shoulder, 4/5 strength with supraspinatus testing, positive impingement signs, tenderness over her acromioclavicular joint, no instability Results Reviewed Results Reviewed: MRI of the patient's left shoulder show severe acromioclavicular joint narrowing, a type 2 acromion, a full-thickness tear of the supraspinatus tendon Assessment & Plan Assessment & Plan (1) Shoulder pain, left: Code(s): M25.512 - Pain in left shoulder Qualifiers: Chronicity: acute Qualified Code(s): M25.512 - Pain in left shoulder Plan Ms. Wu presents with progressively worsening left shoulder pain and weakness due to impingement syndrome, acromioclavicular joint arthritis and a full-thickness rotator cuff tear. I had a lengthy discussion with the patient regarding the treatment options. At this point she has failed continued non operative treatments. The risks and benefits of left shoulder surgery were discussed at length with the patient. The patient wishes to proceed with surgery. Surgery will most likely involve left shoulder diagnostic arthroscopy with distal clavicle excision, acromioplasty and rotator cuff repair. She will contact my office to pick a surgery date when she is ready to do so. She will follow-up as instructed. Feel free to call me at any time should questions regarding her orthopedic management arise. I spent 22 minutes in reviewing the patient's records and imaging studies, seeing the patient and documenting in the medical record. Coding Level of Care Code Est Pt Level 2 (22485) Diagnoses Acute pain of left shoulder M25.512 Chronicity: acute
== END 2023-04-04 10:50 | disposition home or self-care (01) ==
PROVIDERS: PCP Internal Medicine; Visit Provider Orthopaedic Surgery
DX: M75.42 Impingement syndrome of left shoulder (principal); M19.012 Primary osteoarthritis, left shoulder; M75.120 Complete rotator cuff tear or rupture of unspecified shoulder, not specified as traumatic
CPT/HCPCS: 99213

== ENCOUNTER → 2023-04-04 10:06 | Outpatient (BNVA) | payer MEDICARE, SELFPAY | PROVIDERS: PCP Internal Medicine; Visit Provider Orthopaedic Surgery | DX: M25.512 Pain in left shoulder (principal) | CPT/HCPCS: 99212 ==

== ENCOUNTER 2023-05-20 10:44 | Outpatient (AMB) | payer MEDICARE, SELFPAY ==
--- NOTE | 2023-05-20 10:51 | A.OFFVIS_ITS ---
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 Mother Hx of arteritis Social History Household Members: Family and Children Housing: House Alcohol intake: never Patient Tobacco Use Status: Never used Tobacco e-Cigarette/Vaping Use: Never Used Current occupational status: retired Cognitive needs: No Hearing needs: No Vision needs: Yes Physical Exam Vital Signs: Last Vital Signs Pulse 64 05/20/23 10:55 BP 110/56 L 05/20/23 10:55 BMI result Body Mass Index 25.6 Coding
[2023-05-20 10:55] VITALS: BP 110/56; PULSE 64; BMI 25.6
--- NOTE | 2023-05-20 10:59 | A.OFFVIS_ITS ---
Intake Vital Signs 05/20/23 10:55 05/20/23 11:05 Height 5 ft 4 in Weight 149 lb BMI 25.6 25.6 BP 110/56 L Blood Pressure Location Lt brachial Position Sitting Pulse 64 Intake Visit Reasons: 7 mnth follow up Intake Note: Patient 7 month follow up for Esophageal dysfunction. Patient cc: between diarrhea and constipation due on her prune juice and hard stool, and swallowing problem with liquid. 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 TESTS: ba swallow--stasis of pill stuck, suggestive of stricture EGD-01/2019-small tear GEJ, gastritis noted--h pylori pos and treated, bx with chronic reflux and inflammation at GEJ EGD 07/2022--- dilation, no tear, atrophic gastritis noted INTERIM: she ran out of PPI and swallowing was acting up but normal now--she feels she needsw BID dosing appetite is good no problems with bowel habits no blood in stool appetite is good EXAM: GENERAL: The patient is well developed and nontoxic. VITAL SIGNS:see workflow HEENT: Nonicteric sclerae, PERRLA, EOMI. Oropharynx clear. Moist mucous membranes. Conjunctivae appear well perfused. No thyroid mass. CHEST: Chest wall is nontender. HEART: Regular rate and rhythm without murmurs. LUNGS: Clear to auscultation bilaterally. ABDOMEN: Soft, positive bowel sounds, nontender, no organomegaly.no flank tenderness SKIN: No rash, no excessive bruising, petechiae, or purpura. NEUROLOGIC: Cranial nerves II-XII intact without motor/sensory deficit. A/P: Dysphagia, possibly related to GERD, ddx: achalasia, dysmotility--better with PPI and dilation, refilled on PPI PLAN: 1/ rept EGD prn 2/ cont PPI BID--reminded on taking Vit D and MV daily--periodic check on minerals and vitamins juan m ferritin, Mag, b12, vit D PFSH Medical History Pulmonary nodules Myofascial pain syndrome Vitamin D deficiency HLD (hyperlipidemia) HTN (hypertension) T2DM (type 2 diabetes mellitus) Ascending aortic aneurysm Aortic stenosis Back pain Uncontrolled diabetes mellitus Surgical History Hx of tonsillectomy Hx of biopsy Hx of endoscopy Hx of shoulder surgery Family History Father No problems noted. Mother Hx of arteritis Social History Household Members: Family and Children Housing: House Alcohol intake: never Patient Tobacco Use Status: Never used Tobacco e-Cigarette/Vaping Use: Never Used Current occupational status: retired Cognitive needs: No Hearing needs: No Vision needs: Yes Physical Exam Vital Signs: Last Vital Signs Pulse 64 05/20/23 10:55 BP 110/56 L 05/20/23 10:55 BMI result Body Mass Index 25.6 Assessment & Plan Assessment & Plan (1) Esophageal dysfunction: Code(s): K22.4 - Dyskinesia of esophagus Plan: A/P: Dysphagia, possibly related to GERD, ddx: achalasia, dysmotility--better with PPI and dilation, refilled on PPI PLAN: 1/ rept EGD prn 2/ cont PPI BID--reminded on taking Vit D and MV daily--periodic check on minerals and vitamins juan m ferritin, Mag, b12, vit D Coding Level of Care Code Est Pt Level 3 (72533) Diagnoses Esophageal dysfunction K22.4
[2023-05-20 11:05] VITALS: BMI 25.6
== END 2023-05-20 12:26 | disposition home or self-care (01) ==
PROVIDERS: PCP Internal Medicine; Visit Provider Internal Medicine Gastroenterology
DX: K22.4 Dyskinesia of esophagus (principal)
CPT/HCPCS: 99213

== ENCOUNTER → 2023-05-20 10:44 | Outpatient (BNVA) | payer MEDICARE, SELFPAY | PROVIDERS: PCP Internal Medicine; Visit Provider Internal Medicine Gastroenterology | DX: K22.4 Dyskinesia of esophagus (principal) | CPT/HCPCS: 99212 ==

== ENCOUNTER 2023-06-29 07:10 | Outpatient (REF) | payer MEDICARE, SELFPAY ==
[2023-06-29 07:30] LABS: MANUAL DIFF FLAG NO
[2023-06-29 08:05] LABS: Estimated Average Glucose 131 mg/dL; Hemoglobin A1C 135.4742 umol/L; Hemoglobin A1c % 6.2 % (<6.0)
[2023-06-29 08:12] LABS: Basophils Percent Auto 0.6 % (0-2); Eosinophils Absolute Auto 0.1 X10*3/uL (0.0-0.4); Eosinophils Percent Auto 2.6 % (0-4); Hematocrit 36.3 % (37.0-47.0); Hemoglobin 12.2 g/dl (12.0-16.0); Imm Gran Abs Auto 0.01 X10*3/uL (0.00-0.03); Imm Gran Pct Auto 0.2 % (0.0-0.4); Lymphocytes Absolute Auto 1.5 X10*3/uL (1.2-4.9); Lymphocytes Percent Auto 30.7 % (20-40); Mean Corpuscular HGB Conc 33.6 g/dl (31.0-35.0); Mean Corpuscular Hemoglobin 28.6 pg (27.0-33.0); Mean Corpuscular Volume 85.2 fL (80.0-98.0); Mean Platelet Volume 10.8 fL (9.4-12.3); Monocytes Absolute Auto 0.6 X10*3/uL (0.1-1.2); Neutrophils Absolute Auto 2.8 x10*3/uL (2.0-8.3); Neutrophils Percent Auto 54.9 % (45-73); Platelet Count 238 X10*3/uL (160-400); Red Blood Count 4.26 X10*6/uL (4.20-5.50); Red Cell Distribution Width 12.2 % (11.0-16.0)
[2023-06-29 08:17] LABS: Alanine Aminotransferase 14 U/L (0-31); Albumin Level 4.1 g/dL (3.5-5.0); Alkaline Phosphatase 67 U/L (39-117); Anion Gap 14 (12-20); Aspartate Amino Transferase 14 U/L (5-31); Bilirubin Total 0.6 mg/dL (0.0-1.0); Blood Urea Nitrogen 14 mg/dL (9-16); Calcium 9.6 mg/dL (8.4-10.2); Carbon Dioxide 25 mmol/L (22-29); Chloride 106 mmol/L (96-108); Cholesterol 116 mg/dL (<200); Estimated Glomerular Filt Rate > 60; Glucose Fasting 119 mg/dL (60-99); HDL Cholesterol 53 mg/dL (>40); LDL Cholesterol Calculated 53 mg/dL (<100); Potassium 4.5 mmol/L (3.3-5.1); Sodium 140 mmol/L (135-145); Total Protein 6.8 g/dL (6.5-8.0); Triglycerides 50 mg/dL (<150)
[2023-06-29 08:20] LABS: Creatinine Urine 86.44 mg/dL
== END 2023-06-29 07:11 | disposition home or self-care (01) ==
LOC: HO.LAB 07:10
PROVIDERS: PCP Internal Medicine; Visit Provider Internal Medicine
DX: E11.9 Type 2 diabetes mellitus without complications (principal); I10 Essential (primary) hypertension
CPT/HCPCS: 36415; 80053; 80061; 82043; 82570; 83036; 85025

== ENCOUNTER 2023-09-04 11:23 | Outpatient (AMB) | payer MEDICARE, SELFPAY ==
[2023-09-04 11:29] VITALS: BP 120/62; PULSE 70; O2SAT 96; BMI 25.9
--- NOTE | 2023-09-04 11:29 | A.OFFPC_ITS ---
Vital Signs 09/04/23 11:29 Height 5 ft 4 in Weight 151 lb BMI 25.9 BP 120/62 Blood Pressure Location Lt brachial Position Sitting Pulse 70 Pulse Source Pulse Oximeter Pulse Oximetry (%) 96 Oxygen Delivery Method Room Air Intake Visit Reasons: Annual PE Allergies coconut Allergy (Severe, Verified 09/04/23 11:30) Blisters Medication List - Last Reconciled 09/04/23 by Kal Hutchins MD alprazolam 0.5 mg PO BID atorvastatin 40 mg PO DAILY blood sugar diagnostic 1 strip miscellaneous TID blood sugar diagnostic (FreeStyle Lite Strips) As directed blood-glucose meter As directed, One Touch device compatible- may substitute celecoxib (Celebrex) 200 mg PO DAILY cholecalciferol (vitamin D3) 50 mcg PO DAILY 30 days [Diabetic shoes As directed] [diabetic shoes As directed] dulaglutide (Trulicity) 0.75 mg (0.5 mL) subcut QWEEK fluticasone propionate 50 mcg/actuation 1 spray intranasal DAILY gabapentin 300 mg PO BEDTIME 90 days glucose 4 grams PO Q15M PRN 30 days lancets (OneTouch Delica Lancets) As directed lisinopril 2.5 mg PO DAILY metformin ER 1,000 mg (2 x 500 mg) PO BID pantoprazole 40 mg PO BID Tobacco use date assessed: 09/04/23 Fall risk assessment: No Falls in past year Last assessed Fall Risk: 09/04/23 Dental Screening Dental Screen Date: 09/04/23 Did you have a dental visit in the last 12 months?: No Did you have a dental problem in the last 6 months where you did not have access to dental care?: No Was dental information given to patient?: No HPI Annual PE HPI Details Patient is 67-year-old female came in today for physical examination Patient has history of diabetes, diabetic neuropathy, esophageal motility di sorder Anxiety disorder, lipid disorder arthrosis, vitamin-D deficiency, chronic GERD She is seeing Dr. Martinez for Gastroenterology And was seeing Dr. Catherine endocrinology but no more Diabetes management is through PCP office Declined to have mammogram Declined to have colonoscopy Declined to have Pap smear Labs done recently reviewed hemoglobin A1c is well-controlled Follow-up 4 months [facility] Medical History Pulmonary nodules Myofascial pain syndrome Vitamin D deficiency HLD (hyperlipidemia) HTN (hypertension) T2DM (type 2 diabetes mellitus) Ascending aortic aneurysm Aortic stenosis Back pain Uncontrolled diabetes mellitus Surgical History Hx of tonsillectomy Hx of biopsy Hx of endoscopy Hx of shoulder surgery Family History Father No problems noted. Mother Hx of arteritis Social History Household Members: Family and Children Housing: House Alcohol intake: never Patient Tobacco Use Status: Never used Tobacco e-Cigarette/Vaping Use: Never Used Current occupational status: retired Cognitive needs: No Hearing needs: No Vision needs: Yes Questionnaire PHQ-9 Over the last 2 weeks, how often have you been bothered by any of the following problems? 1. Little interest or pleasure in doing things: not at all 2. Feeling down, depressed, or hopeless: not at all 3. Trouble falling or staying asleep, or sleeping too much: not at all 4. Feeling tired or having little energy: not at all 5. Poor appetite or overeating: not at all 6. Feeling bad about yourself - or that you are a failure or have let yourself or your family down: not at all 7. Trouble concentrating on things, such as reading the newspaper or watching television: not at all 8. Moving or speaking so slowly that other people could have noticed. Or the opposite - being so fidgety or restless that you have been moving around a lot more than usual: not at all 9. Thoughts that you would be better off or of hurting yourself in some way: not at all Total score: 0 Depression Screening Interpretation: Negative Depression Screening Done: Yes 14422 - PHQ-9 Billing: Yes Source: Developed by Drs. Zhen Ghosh, Ruth Abraham, Joseph Shook and colleagues, with an educational natty from [employer] Thrive Questionnaire Date Thrive assessed: 09/04/23 I am a: Patient What is your living situation today?: I have a steady place to live Within the past 12 months, did the food you bought not last and you didn't have the money to get more?: Never true Within the past 12 months, did you worry whether your food would run out before you got money to buy more?: Never true Do you have trouble paying for medicines?: No Do you have trouble getting transportation to medical appointments?: No Do you have trouble paying your heating and electricity bill?: No Do you have trouble taking care of your child, family member or friend?: No Do you have trouble with day-to-day activities such as bathing, preparing meals, shopping, managing finances, etc.?: No Are you currently unemployed and looking for a job?: No Are you interested in more education?: No Please select the resources that you would like help with: None Currently or been in a relationship where the following occur: no concerns reported THRIVE Score: 0 DICK-7 AMB Questionnaire DICK-7 Date DICK - 7 assessed: 09/04/23 Feeling nervous, anxious, or on edge: 0 = Not at all Not being able to stop or control worryin = Not at all Worrying too much about different things: 0 = Not at all Trouble relaxin = Not at all Being so restless that it is hard to sit still: 0 = Not at all Becoming easily annoyed or irritable: 0 = Not at all Feeling afraid as if something awful might happen: 0 = Not at all Total DICK-7 score (0-4 normal; 5-9 mild; 10-14 moderate; 15-21 severe): 0 Source: Developed by Drs. Zhen Ghosh, Ruth Abraham, Joseph Shook and colleagues, with an educational natty from [employer] DICK-7 Assessment Billing DICK-7 Assessment Tool: DICK-7 Assessment 45599 Review of Systems Const Denies chills, Denies fever(s) and Denies headache(s) Eyes Denies blurry vision ENT Denies headache(s), Denies nasal discharge, Denies nasal obstruction, Denies odynophagia and Denies sinus pain Card Denies chest pain at rest and Denies chest pain with activity Resp Denies cough and Denies hemoptysis GI Denies diarrhea, Denies odynophagia, Denies vomiting and Denies hematemesis Reports as per HPI Musc Denies abnormal gait Skin/Breast Reports as per HPI Neuro Denies Neuro-related abnormal movements, Denies Abnormal speech present, Denies abnormal gait and Denies headache(s) Psych Denies mood swings and Denies paranoia Endo Reports as per HPI Ramiro/Lymph Reports as per HPI Aller/Immun Reports as per HPI Physical exam (Primary Care) Vital Signs: Last Vital Signs Pulse 70 09/04/23 11:29 BP 120/62 09/04/23 11:29 Pulse Ox 96 09/04/23 11:29 Oxygen Delivery Method Room Air 09/04/23 11:29 BMI result Body Mass Index 25.9 Tobacco/Smoking Status: Tobacco use Status Tobacco use date assessed 09/04/23 09/04/23 11:32 Patient Tobacco Use Status Never used Tobacco 09/04/23 11:32 e-Cigarette/Vaping Use Never Used 09/04/23 11:32 PHQ-9: PHQ-9 Score PHQ-9: Total score 0 09/04/23 11:43 Depression Screening Interpretation: Negative Thrive Assessment: Date of Thrive Assessment Date Thrive assessed 09/04/23 09/04/23 11:35 Currently or been in a relationship where the following occur: no concerns reported Const General: cooperative, comfortable and no acute distress Orientation/consciousness: patient oriented x3 HENMT Head: Yes normocephalic and Yes atraumatic Eyes General: appearance normal, both eyes and all related structures Pupils: Equal, round and reactive pupils present EOM: EOMs intact bilaterally Neck Neck: Yes supple and No lymphadenopathy Thyroid: Thyroid normal Lymphatic: no lymphadenopathy noted Chest Breast/axilla palpation: normal palpation of the breasts Resp Effort & Inspection: normal respiratory effort and able to speak in complete sentences Auscultation: clear to auscultation bilaterally Cardio Heart sounds: S1 normal heart sound present and S2 normal heart sound present GI Palpation (GI): Soft to palpation and nontender Auscultation: normal bowel sounds General: Yes no CVA tenderness Back/Spine/Pelvis Back: no CVA tenderness Skin General skin exam: elasticity normal and turgor normal Neuro General: patient oriented x3 and gait normal Cranial nerves: Yes Equal, round and reactive pupils present Speech: No Abnormal speech present Coordination: Romberg test negative Extrem General: Yes normal exam except as noted and No edema Assessment and Plan Assessment & Plan (1) Encounter for general adult medical examination with abnormal findings: Code(s): Z00.01 - Encounter for general adult medical examination with abnormal findings (2) Diabetic neuropathy: Code(s): E11.40 - Type 2 diabetes mellitus with diabetic neuropathy, unspecified Qualifiers: Diabetes mellitus complication detail: diabetic polyneuropathy Diabetes mellitus type: type 2 Qualified Code(s): E11.42 - Type 2 diabetes mellitus with diabetic polyneuropathy (3) T2DM (type 2 diabetes mellitus): Code(s): E11.9 - Type 2 diabetes mellitus without complications Qualifiers: Diabetes mellitus complication status: without complication Diabetes mellitus rn long term care insulin use: without correction use Qualified Code(s): E11.9 - Type 2 diabetes mellitus without complications (4) HTN (hypertension): Code(s): I10 - Essential (primary) hypertension Qualifiers: Hypertension type: unspecified Qualified Code(s): I10 - Essential (primary) hypertension (5) Esophageal dysfunction: Code(s): K22.4 - Dyskinesia of esophagus (6) Lipid disorder: Code(s): E78.9 - Disorder of lipoprotein metabolism, unspecified (7) Anxiety, generalized: Code(s): F41.1 - Generalized anxiety disorder (8) Ascending aortic aneurysm: Code(s): I71.2 - Thoracic aortic aneurysm, without rupture (9) Thyroid nodule: Code(s): E04.1 - Nontoxic single thyroid nodule Plan Patient is 67-year-old female came in today for physical examination Patient has history of diabetes, diabetic neuropathy, esophageal motility disorder Anxiety disorder, lipid disorder arthrosis, vitamin-D deficiency, chronic GERD She is seeing Dr. Martinez for Gastroenterology And was seeing Dr. Catherine endocrinology but no more Diabetes management is through PCP office Declined to have mammogram Declined to have colonoscopy Declined to have Pap smear Labs done recently reviewed hemoglobin A1c is well-controlled Follow-up 4 months Orders: Orders Hemoglobin A1c Today E04.1 - Nontoxic single thyroid nodule, E11.42 - Type 2 diabetes mellitus with diabetic polyneuropathy, E11.9 - Type 2 diabetes mellitus without complications, E78.9 - Disorder of lipoprotein metabolism, unspecified, F41.1 - Generalized anxiety disorder, I10 - Essential (primary) hypertension, I71.2 - Thoracic aortic aneurysm, without rupture, K22.4 - Dyskinesia of esophagus Vitamin D 25-OH (D2 and D3) Today E04.1 - Nontoxic single thyroid nodule, E11.42 - Type 2 diabetes mellitus with diabetic polyneuropathy, E11.9 - Type 2 diabetes mellitus without complications, E78.9 - Disorder of lipoprotein metabol ism, unspecified, F41.1 - Generalized anxiety disorder, I10 - Essential (primary) hypertension, I71.2 - Thoracic aortic aneurysm, without rupture, K22.4 - Dyskinesia of esophagus TSH reflex Free T4 Today E04.1 - Nontoxic single thyroid nodule, E11.42 - Type 2 diabetes mellitus with diabetic polyneuropathy, E11.9 - Type 2 diabetes mellitus without complications, E78.9 - Disorder of lipoprotein metabolism, unspecified, F41.1 - Generalized anxiety disorder, I10 - Essential (primary) hypertension, I71.2 - Thoracic aortic aneurysm, without rupture, K22.4 - Dyskinesia of esophagus Microalbumin, Random (w Creat) Today E04.1 - Nontoxic single thyroid nodule, E11.42 - Type 2 diabetes mellitus with diabetic polyneuropathy, E11.9 - Type 2 diabetes mellitus without complications, E78.9 - Disorder of lipoprotein metabolism, unspecified, F41.1 - Generalized anxiety disorder, I10 - Essential (primary) hypertension, I71.2 - Thoracic aortic aneurysm, without rupture, K22.4 - Dyskinesia of esophagus Complete Blood Count Auto Diff Today E04.1 - Nontoxic single thyroid nodule, E11.42 - Type 2 diabetes mellitus with diabetic polyneuropathy, E11.9 - Type 2 diabetes mellitus without complications, E78.9 - Disorder of lipoprotein metabolism, unspecified, F41.1 - Generalized anxiety disorder, I10 - Essential (primary) hypertension, I71.2 - Thoracic aortic aneurysm, without rupture, K22.4 - Dyskinesia of esophagus Comprehensive Met. Panel Today E04.1 - Nontoxic single thyroid nodule, E11.42 - Type 2 diabetes mellitus with diabetic polyneuropathy, E11.9 - Type 2 diabetes mellitus without complications, E78.9 - Disorder of lipoprotein metabolism, unspecified, F41.1 - Generalized anxiety disorder, I10 - Essential (primary) hypertension, I71.2 - Thoracic aortic aneurysm, without rupture, K22.4 - Dyskinesia of esophagus LDL Cholesterol Direct Today E04.1 - Nontoxic single thyroid nodule, E11.42 - Type 2 diabetes mellitus with diabetic polyneuropathy, E11.9 - Type 2 diabetes mellitus without complications, E78.9 - Disorder of lipoprotein metabolism, unspecified, F41.1 - Generalized anxiety disorder, I10 - Essential (primary) hypertension, I71.2 - Thoracic aortic aneurysm, without rupture, K22.4 - Dyskinesia of esophagus Coding Level of Care Code Est Pt Prev Care >65y(63568) Diagnoses Encounter for general adult medical examination with abnormal findings Z00.01 Diabetic polyneuropathy associated with type 2 diabetes mellitus E11.42 Diabetes mellitus complication detail: diabetic polyneuropathy Diabetes mellitus type: type 2 Type 2 diabetes mellitus without complication, without long-term current use of insulin E11.9 Diabetes mellitus complication status: without complication Diabetes mellitus rn long term care insulin use: without rn long term care use Hypertension, unspecified type I10 Hypertension type: unspecified Esophageal dysfunction K22.4 Lipid disorder E78.9 Anxiety, generalized F41.1 Ascending aortic aneurysm I71.2 Thyroid nodule E04.1 Additional Codes DICK-7 Assessment Billing - DICK-7 Assessment Tool: DICK-7 Assessment [id number] ([id number])
== END 2023-09-04 11:52 | disposition home or self-care (01) ==
PROVIDERS: Visit Provider Internal Medicine
DX: Z00.00 Encounter for general adult medical examination without abnormal findings (principal); E11.42 Type 2 diabetes mellitus with diabetic polyneuropathy; I71.20 Thoracic aortic aneurysm, without rupture, unspecified; I10 Essential (primary) hypertension; K22.4 Dyskinesia of esophagus; E78.9 Disorder of lipoprotein metabolism, unspecified; F41.1 Generalized anxiety disorder; E04.1 Nontoxic single thyroid nodule
CPT/HCPCS: 99397

== ENCOUNTER 2024-01-01 07:44 | Outpatient (REF) | payer MEDICARE, SELFPAY ==
[2024-01-01 10:19] LABS: MANUAL DIFF FLAG NO
[2024-01-01 10:25] LABS: Basophils Percent Auto 0.7 % (0-2); Eosinophils Absolute Auto 0.2 X10*3/uL (0.0-0.4); Eosinophils Percent Auto 3.8 % (0-4); Hematocrit 36.8 % (37.0-47.0); Hemoglobin 12.2 g/dl (12.0-16.0); Imm Gran Abs Auto 0.01 X10*3/uL (0.00-0.03); Imm Gran Pct Auto 0.2 % (0.0-0.4); Lymphocytes Absolute Auto 1.2 X10*3/uL (1.2-4.9); Lymphocytes Percent Auto 29.5 % (20-40); Mean Corpuscular HGB Conc 33.2 g/dl (31.0-35.0); Mean Corpuscular Hemoglobin 28.5 pg (27.0-33.0); Mean Platelet Volume 11.1 fL (9.4-12.3); Monocytes Absolute Auto 0.5 X10*3/uL (0.1-1.2); Monocytes Percent Auto 11.8 % (2-11); Neutrophils Absolute Auto 2.3 x10*3/uL (2.0-8.3); Platelet Count 231 X10*3/uL (160-400); Red Blood Count 4.28 X10*6/uL (4.20-5.50); Red Cell Distribution Width 12.3 % (11.0-16.0); White Blood Count 4.2 X10*3/uL (4.8-10.8)
[2024-01-01 10:59] LABS: Alanine Aminotransferase 15 U/L (0-31); Albumin Level 3.9 g/dL (3.5-5.0); Alkaline Phosphatase 63 U/L (39-117); Anion Gap 7 (12-20); Aspartate Amino Transferase 17 U/L (5-31); Bilirubin Total 0.5 mg/dL (0.0-1.0); Blood Urea Nitrogen 11 mg/dL (9-16); Calcium 9.1 mg/dL (8.4-10.2); Carbon Dioxide 32 mmol/L (22-29); Chloride 106 mmol/L (96-108); Estimated Glomerular Filt Rate > 60; Glucose Random 117 mg/dL (60-115); Potassium 4.5 mmol/L (3.3-5.1); Sodium 140 mmol/L (135-145); Total Protein 6.7 g/dL (6.5-8.0)
[2024-01-01 11:15] LABS: Creatinine Urine 57.79 mg/dL; Microalbumin Urine < 5.0 mg/L
[2024-01-01 11:21] LABS: TSH reflex Free T4 0.81 uIU/mL (0.32-4.0)
[2024-01-01 11:27] LABS: Estimated Average Glucose 134 mg/dL; Hemoglobin A1c % 6.3 % (<6.0)
[2024-01-03 07:08] LABS: LDL Cholesterol Direct 41 mg/dL (<100)
[2024-01-07 14:53] LABS: Vitamin D 25-OH, D2 <4 ng/mL; Vitamin D 25-OH, D3 31 ng/mL; Vitamin D 25-OH, Total 31 ng/mL (30-100)
== END 2024-01-01 07:45 | disposition home or self-care (01) ==
LOC: HO.HMGCLDS 07:44
PROVIDERS: PCP Internal Medicine; Visit Provider Internal Medicine
DX: F41.1 Generalized anxiety disorder (principal); E78.9 Disorder of lipoprotein metabolism, unspecified; E11.42 Type 2 diabetes mellitus with diabetic polyneuropathy; K22.4 Dyskinesia of esophagus; E04.1 Nontoxic single thyroid nodule; I10 Essential (primary) hypertension; I71.20 Thoracic aortic aneurysm, without rupture, unspecified
CPT/HCPCS: 36415; 80053; 82043; 82306; 82570; 83036; 83721; 84443; 85025

== ENCOUNTER 2024-01-07 09:48 | Outpatient (AMB) | payer MEDICARE, SELFPAY ==
--- NOTE | 2024-01-07 09:50 | MHC.PC.OV ---
Vital Signs 01/07/24 09:52 Height 5 ft 4 in Weight 151 lb BMI 25.9 BP 110/66 Blood Pressure Location Lt brachial Position Sitting Pulse 78 Pulse Source Pulse Oximeter Pulse Oximetry (%) 98 Oxygen Delivery Method Room Air Intake Visit Reasons: 4 month follow up Allergies coconut Allergy (Severe, Verified 09/04/23 11:30) Blisters Medication List - Last Reconciled 01/07/24 by Kal Hutchins MD alprazolam 0.5 mg PO BID atorvastatin 40 mg PO DAILY blood sugar diagnostic 1 strip miscellaneous TID blood sugar diagnostic (FreeStyle Lite Strips) As directed blood-glucose meter As directed, One Touch device compatible- may substitute celecoxib (Celebrex) 200 mg PO DAILY cholecalciferol (vitamin D3) 50 mcg PO DAILY 30 days [Diabetic shoes As directed] [diabetic shoes As directed] dulaglutide (Trulicity) 0.75 mg (0.5 mL) subcut QWEEK fluticasone propionate 50 mcg/actuation 1 spray intranasal DAILY glucose 4 grams PO Q15M PRN 30 days lancets (App in the AirTouch Delica Lancets) As directed lisinopril 2.5 mg PO DAILY metformin ER 1,000 mg (2 x 500 mg) PO BID pantoprazole 40 mg PO BID Tobacco use date assessed: 09/04/23 Fall risk assessment: No Falls in past year Last assessed Fall Risk: 01/07/24 Dental Screening Dental Screen Date: 09/04/23 HPI 4 month follow up HPI Details Patient is 68-year-old female came in for her regular follow-up appointment Diabetes: sugar is well-controlled, patient is on Trulicity 1.5 mg once a week, refill sent , continue metformin 1 g b.i.d. Blood pressure is well-controlled as well Continue atorvastatin 40 mg for lipid control Celebrex for arthritic pain Continue vitamin-D supplement Pantoprazole through Gastroenterology medication list reviewed Also on alprazolam through neurology at night Lab order placed to be done before next visit in 4 months [facility] Medical History Pulmonary nodules Myofascial pain syndrome Vitamin D deficiency HLD (hyperlipidemia) HTN (hypertension) T2DM (type 2 diabetes mellitus) Ascending aortic aneurysm Aortic stenosis Back pain Uncontrolled diabetes mellitus Surgical History Hx of tonsillectomy Hx of biopsy Hx of endoscopy Hx of shoulder surgery Family History Father No problems noted. Mother Hx of arteritis Social History Household Members: Family and Children Housing: House Alcohol intake: never Patient Tobacco Use Status: Never used Tobacco e-Cigarette/Vaping Use: Never Used Current occupational status: retired Cognitive needs: No Hearing needs: No Vision needs: Yes Questionnaire PHQ-9 Over the last 2 weeks, how often have you been bothered by any of the following problems? 1. Little interest or pleasure in doing things: several days 2. Feeling down, depressed, or hopeless: not at all 3. Trouble falling or staying asleep, or sleeping too much: not at all 4. Feeling tired or having little energy: not at all 5. Poor appetite or overeating: not at all 6. Feeling bad about yourself - or that you are a failure or have let yourself or your family down: not at all 7. Trouble concentrating on things, such as reading the newspaper or watching television: not at all 8. Moving or speaking so slowly that other people could have noticed. Or the opposite - being so fidgety or restless that you have been moving around a lot more than usual: not at all 9. Thoughts that you would be better off or of hurting yourself in some way: not at all Total score: 0 Depression Screening Interpretation: Negative Depression Screening Done: Yes 69305 - PHQ-9 Billing: Yes Source: Developed by Drs. Zhen Ghosh, Ruth Abraham, Joseph Shoko and colleagues, with an educational natty from [employer]. Thrive Questionnaire Date Thrive assessed: 09/04/23 I am a: Patient What is your living situation today?: I have a steady place to live Within the past 12 months, did the food you bought not last and you didn't have the money to get more?: I choose not to answer this question Within the past 12 months, did you worry whether your food would run out before you got money to buy more?: I choose not to answer this question Do you have trouble paying for medicines?: I choose not to answer this question Do you have trouble getting transportation to medical appointments?: I choose not to answer this question Do you have trouble paying your heating and electricity bill?: I choose not to answer this question Do you have trouble taking care of your child, family member or friend?: I choose not to answer this question Do you have trouble with day-to-day activities such as bathing, preparing meals, shopping, managing finances, etc.?: I choose not to answer this question Are you interested in more education?: I choose not to answer this question Please select the resources that you would like help with: None Currently or been in a relationship where the following occur: I choose not to answer THRIVE Score: 0 AUDIT C Alcohol Use Questionnaire (AUDIT-C) 1. How often do you have a drink containing alcohol?: Never Total Score: 0 DICK-7 AMB Questionnaire DICK-7 Date DICK - 7 assessed: 09/04/23 Feeling nervous, anxious, or on edge: 0 = Not at all Not being able to stop or control worryin = Not at all Worrying too much about different things: 0 = Not at all Trouble relaxin = Not at all Being so restless that it is hard to sit still: 0 = Not at all Becoming easily annoyed or irritable: 0 = Not at all Feeling afraid as if something awful might happen: 0 = Not at all Total DICK-7 score (0-4 normal; 5-9 mild; 10-14 moderate; 15-21 severe): 0 Source: Developed by Drs. Zhen Ghosh, Ruth Abraham, Joseph Shook and colleagues, with an educational natty from [employer]. Review of Systems Const Denies chills and Denies fever(s) ENT Denies epistaxis and Denies nasal discharge Card Denies chest pain Resp Denies chest congestion, Denies cough and Denies hemoptysis GI Denies diarrhea and Denies nausea Skin/Breast Denies rash Neuro Reports no additional complaints Psych Reports no additional complaints Endo Reports no additional complaints Physical exam (Primary Care) Vital Signs: Last Vital Signs Pulse 78 01/07/24 09:52 BP 110/66 01/07/24 09:52 Pulse Ox 98 01/07/24 09:52 Oxygen Delivery Method Room Air 01/07/24 09:52 BMI result Body Mass Index 25.9 Tobacco/Smoking Status: Tobacco use Status Tobacco use date assessed 09/04/23 01/07/24 09:51 Patient Tobacco Use Status Never used Tobacco 01/07/24 09:51 e-Cigarette/Vaping Use Never Used 01/07/24 09:51 Depression Screening Interpretation: Negative Thrive Assessment: Date of Thrive Assessment Date Thrive assessed 09/04/23 01/07/24 09:51 Currently or been in a relationship where the following occur: I choose not to answer Const General: cooperative, comfortable and no acute distress Orientation/consciousness: patient oriented x3 HENMT Head: Yes normocephalic Eyes General: appearance normal, both eyes and all related structures Neck Neck: Yes supple Resp Effort & Inspection: normal respiratory effort, no cough and no stridor Cardio Rhythm: regular rhythm Heart sounds: S1 normal heart sound present and S2 normal heart sound present Skin General skin exam: turgor normal Neuro General: patient oriented x3, tone normal and moves all extremities Extrem Right lower extremity: no edema Left lower extremity: no edema Assessment and Plan Assessment & Plan (1) T2DM (type 2 diabetes mellitus): Code(s): E11.9 - Type 2 diabetes mellitus without complications Qualifiers: Diabetes mellitus complication status: without complication Diabetes mellitus shelter insulin use: without whale trainer use Qualified Code(s): E11.9 - Type 2 diabetes mellitus without complications (2) HTN (hypertension): Code(s): I10 - Essential (primary) hypertension Qualifiers: Hypertension type: unspecified Qualified Code(s): I10 - Essential (primary) hypertension (3) HLD (hyperlipidemia): Code(s): E78.5 - Hyperlipidemia, unspecified Qualifiers: Hyperlipidemia type: unspecified Qualified Code(s): E78.5 - Hyperlipidemia, unspecified (4) Difficulty sleeping: Code(s): G47.9 - Sleep disorder, unspecified (5) Diabetic neuropathy: Code(s): E11.40 - Type 2 diabetes mellitus with diabetic neuropathy, unspecified Qualifiers: Diabetes mellitus complication detail: diabetic polyneuropathy Diabetes mellitus type: type 2 Qualified Code(s): E11.42 - Type 2 diabetes mellitus with diabetic polyneuropathy Plan Patient is 68-year-old female came in for her regular follow-up appointment Diabetes: sugar is well-controlled, patient is on Trulicity 1.5 mg once a week, refill sent , continue metformin 1 g b.i.d. Blood pressure is well-controlled as well Continue atorvastatin 40 mg for lipid control Celebrex for arthritic pain Continue vitamin-D supplement Pantoprazole through Gastroenterology medication list reviewed Also on alprazolam through neurology at night Lab order placed to be done before next visit in 4 months Orders: Orders Complete Blood Count Auto Diff 3 Months E11.42 - Type 2 diabetes mellitus with diabetic polyneuropathy, E11.9 - Type 2 diabetes mellitus without complications, E78.5 - Hyperlipidemia, unspecified, G47.9 - Sleep disorder, unspecified, I10 - Essential (primary) hypertension Comprehensive Met. Panel 3 Months E11.42 - Type 2 diabetes mellitus with diabetic polyneuropathy, E11.9 - Type 2 diabetes mellitus without complications, E78.5 - Hyperlipidemia, unspecified, G47.9 - Sleep disorder, unspecified, I10 - Essential (primary) hypertension Microalbumin, Random (w Creat) 3 Months E11.42 - Type 2 diabetes mellitus with diabetic polyneuropathy, E11.9 - Type 2 diabetes mellitus without complications, E78.5 - Hyperlipidemia, unspecified, G47.9 - Sleep disorder, unspecified, I10 - Essential (primary) hypertension Hemoglobin A1c 3 Months E11.42 - Type 2 diabetes mellitus with diabetic polyneuropathy, E11.9 - Type 2 diabetes mellitus without complications, E78.5 - Hyperlipidemia, unspecified, G47.9 - Sleep disorder, unspecified, I10 - Essential (primary) hypertension Referrals Podiatry Referral E11.42 - Type 2 diabetes mellitus with diabetic polyneuropathy, E11.9 - Type 2 diabetes mellitus without complications Medications: Changed From dulaglutide (Trulicity) 0.75 mg (0.5 mL) subcut QWEEK 2 mL 4RF To dulaglutide 1.5 mg (0.5 mL) subcut QWEEK 90 days 6.5 mL 3RF Coding Level of Care Code Est Pt Level 4 (03194) Complex EM visit Add On G2211 Diagnoses Type 2 diabetes mellitus without complication, without long-term current use of insulin E11.9 Diabetes mellitus complication status: without complication Diabetes mellitus whale trainer insulin use: without whale trainer use Hypertension, unspecified type I10 Hypertension type: unspecified Hyperlipidemia, unspecified hyperlipidemia type E78.5 Hyperlipidemia type: unspecified Difficulty sleeping G47.9 Diabetic polyneuropathy associated with type 2 diabetes mellitus E11.42 Diabetes mellitus complication detail: diabetic polyneuropathy Diabetes mellitus type: type 2
[2024-01-07 09:52] VITALS: BP 110/66; PULSE 78; O2SAT 98; BMI 25.9
== END 2024-01-07 10:07 | disposition home or self-care (01) ==
PROVIDERS: PCP Internal Medicine; Visit Provider Internal Medicine
DX: E11.42 Type 2 diabetes mellitus with diabetic polyneuropathy (principal); I10 Essential (primary) hypertension; E78.5 Hyperlipidemia, unspecified; G47.9 Sleep disorder, unspecified

== ENCOUNTER → 2024-01-07 09:48 | Outpatient (BNVA) | payer MEDICARE, SELFPAY | PROVIDERS: PCP Internal Medicine; Visit Provider Internal Medicine | DX: E11.42 Type 2 diabetes mellitus with diabetic polyneuropathy (principal); I10 Essential (primary) hypertension; G47.9 Sleep disorder, unspecified | CPT/HCPCS: 99212 ==

== ENCOUNTER 2024-05-05 09:29 | Outpatient (AMB) | payer MEDICARE, SELFPAY ==
[2024-05-05 09:33] VITALS: BP 126/64; PULSE 67; O2SAT 97; BMI 25.7
--- NOTE | 2024-05-05 09:33 | A.OFFPC_ITS ---
Vital Signs 05/05/24 09:33 Height 5 ft 4 in Weight 150 lb BMI 25.7 BP 126/64 Blood Pressure Location Rt brachial Pulse 67 Pulse Source Pulse Oximeter Pulse Oximetry (%) 97 Oxygen Delivery Method Room Air Intake Visit Reasons: 4 month follow up Allergies coconut Allergy (Severe, Verified 05/05/24 09:34) Blisters Medication List - Last Reconciled 05/05/24 by Kal Hutchins MD alprazolam 0.5 mg PO BID atorvastatin 40 mg PO DAILY blood sugar diagnostic 1 strip miscellaneous TID blood sugar diagnostic (FreeStyle Lite Strips) As directed blood-glucose meter As directed, One Touch device compatible- may substitute celecoxib (Celebrex) 200 mg PO DAILY cholecalciferol (vitamin D3) 50 mcg PO DAILY 30 days [Diabetic shoes As directed] [diabetic shoes As directed] dulaglutide 1.5 mg (0.5 mL) subcut QWEEK 90 days fluticasone propionate 50 mcg/actuation 1 spray intranasal DAILY glucose 4 grams PO Q15M PRN 30 days lancets ([employer] Delica Lancets) As directed lisinopril 2.5 mg PO DAILY metformin ER 1,000 mg (2 x 500 mg) PO BID pantoprazole 40 mg PO BID Tobacco use date assessed: 05/05/24 Fall risk assessment: No Falls in past year Last assessed Fall Risk: 05/05/24 Dental Screening Dental Screen Date: 05/05/24 Did you have a dental visit in the last 12 months?: Yes Did you have a dental problem in the last 6 months where you did not have access to dental care?: No Was dental information given to patient?: Patient has dentist HPI 4 month follow up HPI Details - The patient is a 68-year-old female pr esenting with management of chronic conditions. - Type 2 Diabetes Mellitus: Ongoing mariana gement with metformin 1g twice daily; Trulicity 1.5 mg administered weekly as per the conversation; labs overdue prior to this visit. - Hyperlipidemia: Managed with atorvasta tin 40 mg daily; routine labs are expected but not yet completed before this visit. - Osteoarthritis: Managed with Tylenol Diabetic neuropathy, Complains of burning sensation in legs, possibly associated with diabetes; - Hypertension: Current medication inclu hattie lisinopril 2.5 mg; no recent complications noted in this visit. - Gastroesophageal Reflux Disease: Manag ed with pantoprazole; no new complaints were shared during this visit. Has with gastroenterology Dr. Martinez coming up in May Problem List - Type 2 Diabetes Mellitus - Hyperlipidemia - Osteoarthritis - Hypertension - Gastroesophageal Reflux Disease - Peripheral Neuropathy Patient Instructions - Complete a non-fasting blood test befo re leaving today. - has appointment for physical examinati on in September, and remember that labs will be needed again for that visit. - Continue prescribed medications - Use Tylenol as needed for managing denice n. - Avoid ibuprofen to prevent renal and g astrointestinal complications. - Attend the upcoming appointment with Juanpablo Martinez as scheduled Review of Systems - Musculoskeletal: Reports pain in the l egs with a burning sensation. Denies swelling or additional pain beyond occasional arthritis-related discomfort. - General: No fever no chills - Neurological: No headaches no dizziness - Ear nose throat: No sore throat no hearing difficulty no ear pain - Cardiovascular: No syncope, no chest pain, no palpitations - Gastrointestinal: No nausea vomiting or diarrhea - Endocrine: No polyuria polydipsia no heat intolerance - Genitourinary: No dysuria , no blood in urine Physical Exam General: No acute distress HEENT: No acute findings Neck: Supple Respiratory system: Able to talk in full sentences, no audible wheeze cardiovascular: S1-S2 regular in rate and rhythm Gastrointestinal: No pain Extremities: Complains of burning sensation in legs, possibly due to diabetes OVEN LOADER: Alert awake oriented x3 motor sensory intact Skin: Normal turgor PFSH Medical History Pulmonary nodules Myofascial pain syndrome Vitamin D deficiency HLD (hyperlipidemia) HTN (hypertension) T2DM (type 2 diabetes mellitus) Ascending aortic aneurysm Aortic stenosis Back pain Uncontrolled diabetes mellitus Surgical History Hx of tonsillectomy Hx of biopsy Hx of endoscopy Hx of shoulder surgery Family History Father No problems noted. Mother Hx of arteritis Social History Household Members: Family and Children Housing: House Alcohol intake: never Patient Tobacco Use Status: Never used Tobacco e-Cigarette/Vaping Use: Never Used service: No Current occupational status: retired Cognitive needs: No Hearing needs: No Vision needs: Yes Questionnaire PHQ-9 Over the last 2 weeks, how often have you been bothered by any of the following problems? 1. Little interest or pleasure in doing things: several days 2. Feeling down, depressed, or hopeless: not at all 3. Trouble falling or staying asleep, or sleeping too much: not at all 4. Feeling tired or having little energy: not at all 5. Poor appetite or overeating: not at all 6. Feeling bad about yourself - or that you are a failure or have let yourself or your family down: not at all 7. Trouble concentrating on things, such as reading the newspaper or watching television: not at all 8. Moving or speaking so slowly that other people could have noticed. Or the opposite - being so fidgety or restless that you have been moving around a lot more than usual: not at all 9. Thoughts that you would be better off or of hurting yourself in some way: not at all Total score: 1 Depression Screening Interpretation: Negative Depression Screening Done: Yes 44197 - PHQ-9 Billing: Yes Source: Developed by Drs. Zhen Ghosh, Ruth Abraham, Joseph Shook and colleagues, with an educational natty from [employer] Thrive Questionnaire Date Thrive assessed: 05/05/24 I am a: Patient What is your living situation today?: I have a steady place to live Within the past 12 months, did the food you bought not last and you didn't have the money to get more?: I choose not to answer this question Within the past 12 months, did you worry whether your food would run out before you got money to buy more?: I choose not to answer this question Do you have trouble paying for medicines?: I choose not to answer this question Do you have trouble getting transportation to medical appointments?: I choose not to answer this question Do you have trouble paying your heating and electricity bill?: I choose not to answer this question Do you have trouble taking care of your child, family member or friend?: I choose not to answer this question Do you have trouble with day-to-day activities such as bathing, preparing meals, shopping, managing finances, etc.?: I choose not to answer this question Are you interested in more education?: I choose not to answer this question Please select the resources that you would like help with: None Currently or been in a relationship where the following occur: I choose not to answer THRIVE Score: 0 DICK-7 AMB Questionnaire DICK-7 Date DICK - 7 assessed: 09/04/23 Source: Developed by Drs. Zhen Ghosh, Ruth Abraham, Joseph Shook and colleagues, with an educational natty from [employer] Physical exam (Primary Care) Vital Signs: Last Vital Signs Pulse 67 05/05/24 09:33 BP 126/64 05/05/24 09:33 Pulse Ox 97 05/05/24 09:33 Oxygen Delivery Method Room Air 05/05/24 09:33 BMI result Body Mass Index 25.7 Tobacco/Smoking Status: Tobacco use Status Tobacco use date assessed 05/05/24 05/05/24 09:35 Patient Tobacco Use Status Never used Tobacco 05/05/24 09:35 e-Cigarette/Vaping Use Never Used 05/05/24 09:35 PHQ-9: PHQ-9 Score PHQ-9: Total score 0 05/05/24 09:35 Depression Screening Interpretation: Negative Thrive Assessment: Date of Thrive Assessment Date Thrive assessed 05/05/24 05/05/24 09:35 Currently or been in a relationship where the following occur: I choose not to answer Coding Level of Care Code Est Pt Level 4 (68051) Complex EM visit Add On G2211 Diagnoses Type 2 diabetes mellitus without complication, without long-term current use of insulin E11.9 Diabetes mellitus complication status: without complication Diabetes mellitus ferry terminal agent insulin use: without skilled nursing use Diabetic polyneuropathy associated with type 2 diabetes mellitus E11.42 Diabetes mellitus complication detail: diabetic polyneuropathy Diabetes mellitus type: type 2 Lipid disorder E78.9 Esophageal dysfunction K22.4 Vitamin D deficiency E55.9 Hypertension, unspecified type I10 Hypertension type: unspecified Osteoarthritis involving multiple joints on both sides of body M15.9 Mild aortic stenosis I35.0 Additional Codes PHQ-9 - 19882 - PHQ-9 Billing: Yes ([id number]) Assessment & Plan Assessment & Plan (1) T2DM (type 2 diabetes mellitus): Code(s): E11.9 - Type 2 diabetes mellitus without complications Category: Medical Qualifiers: Diabetes mellitus complication status: without complication Diabetes mellitus ferry terminal agent insulin use: without skilled nursing use Qualified Code(s): E11.9 - Type 2 diabetes mellitus without complications (2) Diabetic neuropathy: Code(s): E11.40 - Type 2 diabetes mellitus with diabetic neuropathy, unspecified Category: Medical Qualifiers: Diabetes mellitus complication detail: diabetic polyneuropathy Diabetes mellitus type: type 2 Qualified Code(s): E11.42 - Type 2 diabetes mellitus with diabetic polyneuropathy (3) Lipid disorder: Code(s): E78.9 - Disorder of lipoprotein metabolism, unspecified Category: Medical (4) Esophageal dysfunction: Code(s): K22.4 - Dyskinesia of esophagus Category: Medical (5) Vitamin D deficiency: Code(s): E55.9 - Vitamin D deficiency, unspecified Category: Medical (6) HTN (hypertension): Code(s): I10 - Essential (primary) hypertension Category: Medical Qualifiers: Hypertension type: unspecified Qualified Code(s): I10 - Essential (primary) hypertension (7) Osteoarthritis involving multiple joints on both sides of body: Code(s): M15.9 - Polyosteoarthritis, unspecified Category: Medical (8) Mild aortic stenosis: Code(s): I35.0 - Nonrheumatic aortic (valve) stenosis Category: Medical Plan - The patient is a 68-year-old female presenting with management of chronic conditions. - Type 2 Diabetes Mellitus: Ongoing management with metformin 1g twice daily; Trulicity 1.5 mg administered weekly as per the conversation; labs overdue prior to this visit. - Hyperlipidemia: Managed with atorvastatin 40 mg daily; routine labs are expected but not yet completed before this visit. - Osteoarthritis: Managed with Tylenol Diabetic neuropathy, Complains of burning sensation in legs, possibly associated with diabetes; - Hypertension: Current medication includes lisinopril 2.5 mg; no recent complications noted in this visit. - Gastroesophageal Reflux Disease: Managed with pantoprazole; no new complaints were shared during this visit. Has with gastroenterology Dr. Martinez coming up in May Problem List - Type 2 Diabetes Mellitus - Hyperlipidemia - Osteoarthritis - Hypertension - Gastroesophageal Reflux Disease - Peripheral Neuropathy Patient Instructions - Complete a non-fasting blood test before leaving today. - has appointment for physical examination in September, and remember that labs will be needed again for that visit. - Continue prescribed medications - Use Tylenol as needed for managing pain. - Avoid ibuprofen to prevent renal and gastrointestinal complications. - Attend the upcoming appointment with Dr. Martinez as scheduled Orders: Orders Comprehensive [place]. Panel Fast 5 Months E11.42 - Type 2 diabetes mellitus with diabetic polyneuropathy, E11.9 - Type 2 diabetes mellitus without complications, E55.9 - Vitamin D deficiency, unspecified, E78.9 - Disorder of lipoprotein metabolism, unspecified, I10 - Essential (primary) hypertension, I71.2 - Thoracic aortic aneurysm, without rupture, K22.4 - Dyskinesia of esophagus, M15.9 - Polyosteoarthritis, unspecified Lipid Panel 5 Months E11.42 - Type 2 diabetes mellitus with diabetic polyneuropathy, E11.9 - Type 2 diabetes mellitus without complications, E55.9 - Vitamin D deficiency, unspecified, E78.9 - Disorder of lipoprotein metabolism, unspecified, I10 - Essential (primary) hypertension, I71.2 - Thoracic aortic aneurysm, without rupture, K22.4 - Dyskinesia of esophagus, M15.9 - Polyosteoarthritis, unspecified Microalbumin, Random (w Creat) 5 Months E11.42 - Type 2 diabetes mellitus with diabetic polyneuropathy, E11.9 - Type 2 diabetes mellitus without complications, E55.9 - Vitamin D deficiency, unspecified, E78.9 - Disorder of lipoprotein metabolism, unspecified, I10 - Essential (primary) hypertension, I71.2 - Thoracic aortic aneurysm, without rupture, K22.4 - Dyskinesia of esophagus, M15.9 - Polyosteoarthritis, unspecified Hemoglobin A1c 5 Months E11.42 - Type 2 diabetes mellitus with diabetic polyneuropathy, E11.9 - Type 2 diabetes mellitus without complications, E55.9 - Vitamin D deficiency, unspecified, E78.9 - Disorder of lipoprotein metabolism, unspecified, I10 - Essential (primary) hypertension, I71.2 - Thoracic aortic aneurysm, without rupture, K22.4 - Dyskinesia of esophagus, M15.9 - Polyosteoarthritis, unspecified Medications: Refilled celecoxib (Celebrex) 200 mg PO DAILY 30 caps 3RF
== END 2024-05-05 11:20 | disposition home or self-care (01) ==
PROVIDERS: PCP Internal Medicine; Visit Provider Internal Medicine
DX: E11.42 Type 2 diabetes mellitus with diabetic polyneuropathy (principal); E78.9 Disorder of lipoprotein metabolism, unspecified; K22.4 Dyskinesia of esophagus; E55.9 Vitamin D deficiency, unspecified; I10 Essential (primary) hypertension; M15.9 Polyosteoarthritis, unspecified; I35.0 Nonrheumatic aortic (valve) stenosis

== ENCOUNTER 2024-05-05 09:29 | Outpatient (REF) | payer MEDICARE, SELFPAY ==
[2024-05-05 13:14] LABS: MANUAL DIFF FLAG NO
[2024-05-05 13:30] LABS: Basophils Percent Auto 0.8 % (0-2); Eosinophils Absolute Auto 0.2 X10*3/uL (0.0-0.4); Eosinophils Percent Auto 3.3 % (0-4); Hematocrit 37.7 % (37.0-47.0); Hemoglobin 12.4 g/dl (12.0-16.0); Imm Gran Abs Auto 0.01 X10*3/uL (0.00-0.03); Imm Gran Pct Auto 0.2 % (0.0-0.4); Lymphocytes Absolute Auto 1.5 X10*3/uL (1.2-4.9); Lymphocytes Percent Auto 28.8 % (20-40); Mean Corpuscular HGB Conc 32.9 g/dl (31.0-35.0); Mean Corpuscular Hemoglobin 28.2 pg (27.0-33.0); Mean Corpuscular Volume 85.9 fL (80.0-98.0); Mean Platelet Volume 11.1 fL (9.4-12.3); Monocytes Absolute Auto 0.5 X10*3/uL (0.1-1.2); Neutrophils Percent Auto 56.9 % (45-73); Platelet Count 250 X10*3/uL (160-400); Red Blood Count 4.39 X10*6/uL (4.20-5.50); Red Cell Distribution Width 12.4 % (11.0-16.0); White Blood Count 5.2 X10*3/uL (4.8-10.8)
[2024-05-05 13:47] LABS: Estimated Average Glucose 143 mg/dL; Hemoglobin A1C 150.0096 umol/L; Hemoglobin A1c % 6.6 % (<6.0); Total Hemoglobin (HGBA1C) 3114.4076 umol/L
[2024-05-05 13:55] LABS: Alanine Aminotransferase 18 U/L (0-31); Albumin Level 4.1 g/dL (3.5-5.0); Alkaline Phosphatase 63 U/L (39-117); Anion Gap 9 (12-20); Aspartate Amino Transferase 23 U/L (5-31); Bilirubin Total 0.4 mg/dL (0.0-1.0); Blood Urea Nitrogen 19 mg/dL (9-16); Calcium 8.6 mg/dL (8.4-10.2); Carbon Dioxide 27 mmol/L (22-29); Chloride 108 mmol/L (96-108); Estimated Glomerular Filt Rate > 60; Glucose Random 115 mg/dL (60-115); Potassium 4.4 mmol/L (3.3-5.1); Sodium 140 mmol/L (135-145); Total Protein 7.1 g/dL (6.5-8.0)
[2024-05-05 14:28] LABS: Creatinine Urine 77.23 mg/dL
== END 2024-05-05 09:30 | disposition home or self-care (01) ==
LOC: HO.HMGCLDS 09:29
PROVIDERS: PCP Internal Medicine; Visit Provider Internal Medicine
DX: E11.42 Type 2 diabetes mellitus with diabetic polyneuropathy (principal); E78.5 Hyperlipidemia, unspecified; K22.4 Dyskinesia of esophagus; E55.9 Vitamin D deficiency, unspecified; I10 Essential (primary) hypertension; M15.9 Polyosteoarthritis, unspecified; I35.0 Nonrheumatic aortic (valve) stenosis; K21.9 Gastro-esophageal reflux disease without esophagitis; Z79.84 Long term (current) use of oral hypoglycemic drugs; Z79.85 Long-term (current) use of injectable non-insulin antidiabetic drugs; Z79.899 Other long term (current) drug therapy; G47.9 Sleep disorder, unspecified
CPT/HCPCS: 36415; 80053; 82043; 82570; 83036; 85025; 96127; 99212

== ENCOUNTER 2024-05-18 09:48 | Outpatient (AMB) | payer MEDICARE, SELFPAY ==
--- NOTE | 2024-05-18 09:55 | MHC.OFFVIS ---
Vital Signs 05/18/24 09:58 Height 5 ft 4 in Weight 152 lb 1.903 oz BMI 26.1 BP 118/57 L Blood Pressure Location Lt brachial Position Sitting Pulse 67 Intake Visit Reasons: 1 year follow up Intake Note: Jas presents in the office with her son as a 1 year follow up. CC: States that she is feeling okay and just a 1 year follow up. 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 TESTS: ba swallow--stasis of pill stuck, suggestive of stricture EGD-01/2019-small tear GEJ, gastritis noted--h pylori pos and treated, bx with chronic reflux and inflammation at GEJ EGD 07/2022--- dilation, no tear, atrophic gastritis noted INTERIM: she is doing well no choking no dysphagia she is taking PPI she has pain and swelling in the left groin, EXAM: GENERAL: The patient is well developed and nontoxic. VITAL SIGNS:see workflow HEENT: Nonicteric sclerae, PERRLA, EOMI. Oropharynx clear. Moist mucous membranes. Conjunctivae appear well perfused. No thyroid mass. CHEST: Chest wall is nontender. HEART: Regular rate and rhythm without murmurs. LUNGS: Clear to auscultation bilaterally. ABDOMEN: Soft, positive bowel sounds, nontender, no organomegaly.no flank tenderness--tender left groin and swelling, ?hernia SKIN: No rash, no excessive bruising, petechiae, or purpura. NEUROLOGIC: Cranial nerves II-XII intact without motor/sensory deficit. A/P: Dysphagia, possibly related to GERD, ddx: achalasia, dysmotility--better with PPI and dilation, refilled on PPI PLAN: 1/ rept EGD prn 2/ cont PPI BID--reminded on taking Vit D and MV daily-- 3/ refer surgery for hernia assessment PFSH Medical History Pulmonary nodules Myofascial pain syndrome Vitamin D deficiency HLD (hyperlipidemia) HTN (hypertension) T2DM (type 2 diabetes mellitus) Ascending aortic aneurysm Aortic stenosis Back pain Uncontrolled diabetes mellitus Surgical History Hx of tonsillectomy Hx of biopsy Hx of endoscopy Hx of shoulder surgery Family History Father No problems noted. Mother Hx of arteritis Social History Household Members: Family and Children Housing: House Alcohol intake: never Patient Tobacco Use Status: Never used Tobacco e-Cigarette/Vaping Use: Never Used service: No Current occupational status: retired Cognitive needs: No Hearing needs: No Vision needs: Yes Physical Exam Vital Signs: BMI result Body Mass Index 26.1 Assessment & Plan Assessment & Plan (1) Left groin pain: Code(s): R10.32 - Left lower quadrant pain Category: Medical Plan: see above Orders: Referrals General Surgery Referral R10.32 - Left lower quadrant pain Coding Level of Care Code Est Pt Level 3 (26143) Diagnoses Left groin pain R10.32
[2024-05-18 09:58] VITALS: BP 118/57; PULSE 67; BMI 26.1
== END 2024-05-18 10:27 | disposition home or self-care (01) ==
PROVIDERS: PCP Internal Medicine; Visit Provider Internal Medicine Gastroenterology
DX: R10.32 Left lower quadrant pain (principal)
CPT/HCPCS: 99213

== ENCOUNTER → 2024-05-18 09:48 | Outpatient (BNVA) | payer MEDICARE, SELFPAY | PROVIDERS: PCP Internal Medicine; Visit Provider Internal Medicine Gastroenterology | DX: R10.32 Left lower quadrant pain (principal) | CPT/HCPCS: 99212 ==

== ENCOUNTER 2024-05-19 10:22 | Outpatient (AMB) | payer MEDICARE, SELFPAY ==
--- NOTE | 2024-05-19 10:28 | MHC.OFFVIS ---
Vital Signs 05/19/24 10:36 Height 5 ft 4 in Weight 150 lb BMI 25.7 BP 126/58 L Blood Pressure Location Rt brachial Position Sitting Pulse 66 Intake Visit Reasons: left groin pain/hernia? Intake Note: Patient referred by Dr. Martinez for ? hernia. Patient c/o: pain on lt upper groin last week. Lump that bulges out. Punch Molder Required: No Accompanied by: Francia son Allergies coconut Allergy (Severe, Verified 05/19/24 10:33) Blisters HPI Comments Details: Patient presents , with her son, who has had a longstanding history of a left groin hernia which is occasionally symptomatic. She presents here from referral from GI for this. She otherwise tolerating a diet. She has regular bowel habits. She does do occasional strenuous activities regarding caring for her mother. She would like to consider having this repaired Chart was reviewed and patient evaluated [facility] Medical History Pulmonary nodules Myofascial pain syndrome Vitamin D deficiency HLD (hyperlipidemia) HTN (hypertension) T2DM (type 2 diabetes mellitus) Ascending aortic aneurysm Aortic stenosis Back pain Uncontrolled diabetes mellitus Surgical History Hx of tonsillectomy Hx of biopsy Hx of endoscopy Hx of shoulder surgery Family History Father No problems noted. Mother Hx of arteritis Social History Household Members: Family and Children Housing: House Alcohol intake: never Patient Tobacco Use Status: Never used Tobacco e-Cigarette/Vaping Use: Never Used service: No Current occupational status: retired Cognitive needs: No Hearing needs: No Vision needs: Yes Physical Exam Vital Signs: Last Vital Signs Pulse 66 05/19/24 10:36 BP 126/58 L 05/19/24 10:36 BMI result Body Mass Index 25.7 Chest Other: Chest breath sounds bilaterally, HS 1 in 2 GI Other: Abdomen is soft, benign. Right groin negative. Genitalia within normal limits. Left groin hernia either a femoral or inguinal hernia demonstrated. Reducible. Tender to palpation Assessment & Plan Assessment & Plan (1) Left groin hernia: Code(s): K40.90 - Unilateral inguinal hernia, without obstruction or gangrene, not specified as recurrent Category: Surgical Plan Risks, benefits, alternatives of left groin hernia repair with mesh were reviewed with the patient and her son and included but not limited to bleeding, infection, recurrence, numbness, pain, scarring the patient wished to proceed. All questions answered. Arrangements were made for this on a day which is convenient for her. Coding Level of Care Code New Pt Level 5 (47400) Diagnoses Left groin hernia K40.90
[2024-05-19 10:36] VITALS: BP 126/58; PULSE 66; BMI 25.7
== END 2024-05-19 10:47 | disposition home or self-care (01) ==
PROVIDERS: PCP Internal Medicine; Referring Provider Internal Medicine Gastroenterology; Visit Provider Surgery
DX: K40.90 Unilateral inguinal hernia, without obstruction or gangrene, not specified as recurrent (principal)
CPT/HCPCS: 99204

== ENCOUNTER → 2024-05-19 10:22 | Outpatient (BNVA) | payer MEDICARE, SELFPAY | PROVIDERS: PCP Internal Medicine; Referring Provider Internal Medicine Gastroenterology; Visit Provider Surgery | DX: K40.90 Unilateral inguinal hernia, without obstruction or gangrene, not specified as recurrent (principal) | CPT/HCPCS: 99202 ==

== ENCOUNTER 2024-06-05 12:51 | Outpatient (AMB) | payer MEDICARE, SELFPAY ==
[2024-06-05 13:15] VITALS: BP 110/60; PULSE 61; BMI 25.7
--- NOTE | 2024-06-05 13:15 | A.OFFVIS_ITS ---
Vital Signs 06/05/24 13:15 Height 5 ft 4 in Weight 150 lb BMI 25.7 BP 110/60 Blood Pressure Location Lt brachial Position Sitting Pulse 61 Pulse Source Monitor Intake Visit Reasons: pre-op hernia surgery Trestle Mechanic Required: Yes Trestle Mechanic Services: Trestle Mechanic Offered & Declined Accompanied by: Son Allergies coconut Allergy (Severe, Verified 05/19/24 10:33) Blisters Medication List - Last Reconciled 06/05/24 by Kevin Gates NP alprazolam 0.5 mg PO BID atorvastatin 40 mg PO DAILY blood sugar diagnostic 1 strip miscellaneous TID blood sugar diagnostic (FreeStyle Lite Strips) As directed blood-glucose meter As directed, One Touch device compatible- may substitute celecoxib (Celebrex) 200 mg PO DAILY PRN cholecalciferol (vitamin D3) 50 mcg PO DAILY 30 days [Diabetic shoes As directed] [diabetic shoes As directed] dulaglutide 1.5 mg (0.5 mL) subcut QWEEK 90 days fluticasone propionate 50 mcg/actuation 1 spray intranasal DAILY glucose 4 grams PO Q15M PRN 30 days lancets (OneTouch Delica Lancets) As directed lisinopril 2.5 mg PO DAILY metformin ER 1,000 mg (2 x 500 mg) PO BID pantoprazole 40 mg PO BID HPI Comments Details: This is a 68-year-old female patient presenting for preoperative cardiovascular clearance. She has a history of aortic stenosis, hypertension, diabetes, and was last seen in the office over 2 years ago. The patient is accompanied by her son, who assisted with translation during the visit. She has been experiencing symptomatic left groin hernia and is planned for a repair for it. The patient denies any anginal symptoms. Patient remains active at home and states that during the winter months she goes with her son to the gym sometimes to walk on the treadmill. Patient is otherwise denying any exertional chest pain, shortness of breath, palpitations, dizziness, fatigue, orthopnea, PND, leg edema, presyncope, or syncope. The patient confirms compliance with her medications. [facility] Medical History Pulmonary nodules Myofascial pain syndrome Vitamin D deficiency HLD (hyperlipidemia) HTN (hypertension) T2DM (type 2 diabetes mellitus) Ascending aortic aneurysm Aortic stenosis Back pain Uncontrolled diabetes mellitus Surgical History Hx of tonsillectomy Hx of biopsy Hx of endoscopy Hx of shoulder surgery Family History Father No problems noted. Mother Hx of arteritis Social History Household Members: Family and Children Housing: House Alcohol intake: never Patient Tobacco Use Status: Never used Tobacco e-Cigarette/Vaping Use: Never Used service: No Current occupational status: retired Cognitive needs: No Hearing needs: No Vision needs: Yes Review of Systems Const Denies weakness ENT Denies dizziness Card Denies chest pain, Denies chest pain with activity, Denies syncope, Denies rapid heart rate, Denies pedal edema, Denies edema, Denies leg edema, Denies lightheadedness, Denies palpitations, Denies dyspnea, Denies dyspnea on exertion and Denies orthopnea Resp Denies cough, Denies dyspnea and Denies dyspnea on exertion GI Denies hematochezia and Denies change in stool character Musc Denies abnormal gait, Denies muscle cramps, Denies muscle weakness, Denies numbness, Denies radiating pain into limb and Denies tingling Neuro Denies abnormal gait, Denies dizziness, Denies syncope, Denies numbness, Denies tingling and Denies weakness Endo Denies palpitations Physical Exam Vital Signs: Last Vital Signs Pulse 61 06/05/24 13:15 BP 110/60 06/05/24 13:15 BMI result Body Mass Index 25.7 Const General: cooperative, healthy appearing, comfortable and no acute distress Orientation/consciousness: patient oriented x3 HEENT Head: Yes normal to inspection Neck Neck: Yes normal visual inspection, Yes trachea midline and Yes supple Chest Chest palpation & inspection: normal inspection of the chest Resp Effort & Inspection: normal respiratory effort Auscultation: clear to auscultation bilaterally, no crackles, no rales, no rhonchi and no wheezes Cardio Jugular venous distension: no JVD Palpation: normal PMI Rate: regular rate Rhythm: regular rhythm Heart sounds: S1 normal heart sound present, S2 normal heart sound present, no click, no gallops, no murmurs and no rubs Peripheral pulses: Peripheral pulses 2+ throughout GI Inspection: Yes normal to inspection Palpation (GI): Soft to palpation Auscultation: normal bowel sounds Skin General skin exam: no rashes or lesions noted Neuro General: patient oriented x3 Extrem General: Yes normal to inspection, No no pedal edema and No calf tenderness Psych Appearance: grossly normal Mental Status: mental status grossly normal Speech and movement: Normal speech and movement present Office Procedures EKG Details: EKG today shows normal sinus rhythm, 61 beats per minute, normal [place], [place]. [id number]-[id number], Complete Assessment & Plan Assessment & Plan (1) Preop cardiovascular exam: Code(s): Z01.810 - Encounter for preprocedural cardiovascular examination Category: Medical Plan: We will update echo. The patient remains active at home and during the winter months, states that she goes to the gym with her son sometimes to walk on the treadmill. She is able to meet Mets of 4, as she goes up and down stairs daily without experiencing any symptoms. An addendum to this note will be made following the results of the echo. (2) Aortic stenosis: Code(s): I35.0 - Nonrheumatic aortic (valve) stenosis Category: Medical Plan: 06/12/2021-echo study showed normal EF 67%, mild aortic valve calcification with aortic valve area of 1.9 cm2, small plaque in the sinotubular ridge. Cardinal signs of severe reviewed with the patient. We will update an echo and continue to monitor it periodically. Advised to continue with the management of vascular risk factors. (3) HLD (hyperlipidemia): Code(s): E78.5 - Hyperlipidemia, unspecified Category: Medical Qualifiers: Hyperlipidemia type: unspecified Qualified Code(s): E78.5 - Hyperlipidemia, unspecified Plan: Last LDL 41. Continue statin therapy and LDL less than 90. Patient notes her blood sugars have been well managed since adding Trulicity to her regimen. Most recent A1c 6.6, ideally A1c goal less than 7%. (4) HTN (hypertension): Code(s): I10 - Essential (primary) hypertension Category: Medical Qualifiers: Hypertension type: unspecified Qualified Code(s): I10 - Essential (primary) hypertension Plan: Blood pressure today is well-controlled. No med changes at this time. Ideally blood pressure less than 130/84. Advised to continue with heart healthy diet, regular exercise, and med compliance. Patient will follow-up in a year, sooner if needed. In the interim, patient will call us with any concerns. This note was generated using voice recognition software. While every effort has been made to ensure accuracy and proper gasfitter, there may be occasional errors that could affect the content or meaning of the described symptoms. Orders: Orders CA echo transthoracic complete Today Kevin Gates NP Z01.810 - Encounter for preprocedural cardiovascular examination AMB EKG-In Office Today Kevin Gates NP Z01.810 - Encounter for preprocedural cardiovascular examination Medications: Changed From celecoxib (Celebrex) 200 mg PO DAILY 30 caps 3RF To celecoxib (Celebrex) 200 mg PO DAILY PRN Kal Hutchins MD Coding Level of Care Code Est Pt Level 4 (51071) Diagnoses Preop cardiovascular exam Z01.810 Aortic stenosis I35.0 Hyperlipidemia, unspecified hyperlipidemia type E78.5 Hyperlipidemia type: unspecified Hypertension, unspecified type I10 Hypertension type: unspecified CPT Codes EKG - CPT: 22055-[id number], Complete ([id number]) Time Spent (min) 31 Comment Time spent in reviewing the chart, test results, assessment, counseling and documentation.
== END 2024-06-05 13:41 | disposition home or self-care (01) ==
PROVIDERS: PCP Internal Medicine
DX: I35.0 Nonrheumatic aortic (valve) stenosis (principal); E78.5 Hyperlipidemia, unspecified; I10 Essential (primary) hypertension; Z01.810 Encounter for preprocedural cardiovascular examination
CPT/HCPCS: 93010; 99214

== ENCOUNTER → 2024-06-05 12:51 | Outpatient (BNVA) | payer MEDICARE, SELFPAY | PROVIDERS: PCP Internal Medicine | DX: Z01.810 Encounter for preprocedural cardiovascular examination (principal); I35.0 Nonrheumatic aortic (valve) stenosis; I10 Essential (primary) hypertension; E78.5 Hyperlipidemia, unspecified | CPT/HCPCS: 93005; 99212 ==

== ENCOUNTER → 2024-06-10 09:43 | Outpatient (REF) | payer MEDICARE, SELFPAY ==
--- NOTE | 2024-06-10 09:46 | CA_ITS ---
Transthoracic Echocardiogram Patient (Last, First, Middle): Jas Wu, Gender: Female Date of : 1955 Age: 68 Procedure Date: 06/10/2024 Procedure Type: Transthoracic Echocardiogram Location: OP Height: 162.56 cm Weight: 66.68 kg BSA: 1.72 m2 Heart Rate: bpm BP: 116 / 60 mmHg Merchandise For Resale Purchasing Agent: Referring MD: Kevin Gates [employer] Symptoms: Z01.810 - Encounter for preprocedural cardiovascular examination Study Quality: Good ECG Rhythm: Sinus Conclusions: - The left ventricular systolic function is normal. The calculated ejection fraction is 68% by biplane method. - No obvious valvular pathology seen on this study. - Small plaque is seen in the sino tubular ridge. Findings Left Ventricle Normal left ventricular cavity size. There is mildly increased left ventricular wall thickness. The left ventricular systolic function is normal. The calculated ejection fraction is 68% by biplane method. There is no evidence of regional wall motion abnormalities. Evidence suggests grade I (mild) diastolic dysfunction. Right Ventricle Mildly increased right ventricular cavity size. There is normal right ventricular systolic function. Atria Both atria are normal in size. Aortic Valve There is a normal trileaflet aortic valve. There is no aortic valve stenosis. There is no aortic valve regurgitation. Mitral Valve There is mild anterior mitral leaflet thickening. There is mild mitral annular calcification. There is no mitral valve regurgitation. There is no mitral valve stenosis. Pulmonic Valve The pulmonic valve is likely normal. Tricuspid Valve There is trace tricuspid valve regurgitation. There is no evidence of pulmonary hypertension. Great Vessels The asc aorta is normal in size. Small plaque is seen in the sino tubular ridge. Venous The inferior vena cava is normal in size and collapses greater than 50% with inspiration. Pericardium/Pleural There is no evidence of pericardial effusion. Prior Study Comparison No significant change compared to prior study dated: 06/12/2021. Recommendations, Care & Conclusions No obvious valvular pathology seen on this study. Measurements 2D Linear Measurements IVSd: 1.07 0.6-0.9/0.6-1.0 cm LVIDd: 4.53 3.9-5.3/4.2-5.9 cm LVIDd Index: 2.63 2.4-3.2/2.2-3.1 cm/m2 LVIDs: 2.67 2.0-3.6 cm LVPWd: 1.08 0.7-1.1 cm Ao Root: 2.60 2.1-3.5 cm LA Diam: 3.60 2.7-3.8/3.0-4.0 cm LAIDs Index: 2.09 1.5-2.3 cm/m2 LV Mass: 213.32 67-162/88-224 g LV Mass Index: 124.02 43-95/49-115 g/m2 LVOT Diam: 2.10 3.0+(-)1.3 cm 2D Systolic Function EF 4C: 69.70 >55% EF 2C: 68.00 >55% EF BiP: 67.60 >55% Mitral Valve MV Pk E: 0.66 MV PK A: 1.17 MV Decel Time: 332.00 E/A: 0.60 E'Lateral: 6.09 E'Medial: 5.22 E/E' Med: 12.60 E/E' Lat: 10.80 PHT: 97.00 MVA PHT: 2.27 Decel [place]: 1.97 LVOT LVOT Pk Bradley: 1.13 LVOT Mn Bradley: 0.78 LVOT VTI: 0.30 LVOT Pk Grad: 5.00 LVOT Mn Grad: 3.00 LVOT Diam: 2.10 LVOT Area: 3.46 Diastolic Function MV Pk E: 0.66 MV Pk A: 1.17 E/A: 0.60 E'Medial: 5.22 E/E' Med: 12.60 E' Laterial: 6.09 E/E' Lat: 10.80 Right Ventricle TAPSE (mm): 25.00 Tricuspid Valve TR Pk Bradley: 1.72 TR Pk Grad: 12.00 RA Press: 3.00 RVSP: 15.00 Great Vessels Aorta Ao Root-2D: 2.60 2.0-3.7 cm Ao Asc: 3.00 2.1-3.4 cm Pulmonary Valve PV Pk Bradley: 1.38 Peak PV Grad: 8.00 Updated in Other Vendor System with Status of Final Keith Zarate MD electronically signed on 06/10/2024 1:06:20 PM with status of Final
== END ==
LOC: HO.CARD 09:43
PROVIDERS: PCP Internal Medicine
DX: Z01.810 Encounter for preprocedural cardiovascular examination (principal)
CPT/HCPCS: 93306

== ENCOUNTER → 2024-06-10 09:46 | Outpatient (BNV) | payer MEDICARE, SELFPAY | PROVIDERS: PCP Internal Medicine; Visit Provider Internal Medicine | DX: Z01.810 Encounter for preprocedural cardiovascular examination (principal); I34.1 Nonrheumatic mitral (valve) prolapse | CPT/HCPCS: 93306 ==

== ENCOUNTER 2024-07-23 10:14 | Day surgery (SDC) | payer MEDICARE, SELFPAY ==
[2024-07-08 14:55] VITALS: BMI 25.7
--- NOTE | 2024-07-22 09:23 | MHC.SHP ---
Pre-Procedural Eval Section A - 24 Hr Update-Section A only Date of Service: 07/23/24 The patient is an INPATIENT: No Changes since office visit: No Cold of Flu in the past 2 weeks, No New Medical Problems, No Changes in Medication and No Patient answered all questions Section B - Complete if H&P > 30 days Chief Complaint: Unilateral inguinal hernia, without obstruction Allergies: Allergies Allergy/AdvReac Type Severity Reaction Status Date / Time coconut Allergy Intermediate Blister Verified 07/08/24 11:58 Review of Systems Sugical H&P ROS: Negative: Constitution, Cardiovascular, Respiratory, Neurological, Psychiatric, Hem-Onc, Allergic/Immunologic, Gastrointestinal, Genitourinary, Musculoskeletal, Integumentary, Endocrine and Eyes/Ears/Nose/Throat Exam Surgical H&P Exam: Normal: HEENT, Normal: Heart, Normal: Lungs, Normal: Extremities, Normal: Abdomen, Normal: Skin and Normal: Neurological Plan I have reviewed the history and physical and performed a pertinent physical examination on my patient. No changes have occurred unless specified. Time Spent With Patient Time: Total time managing care of this patient today ____ minutes.
[2024-07-23 10:43] VITALS: BP 141/49; PULSE 71; RESP 16; TEMP 36.6; O2SAT 99; BMI 25.8
[2024-07-23] MEDS: Lactated Ringers 1,000 ML 100 ML IVCONT (10:50)
[2024-07-23 10:52] LABS: Glucose, Whole Blood 117 mg/dL (60-115)
--- NOTE | 2024-07-23 11:21 | P.CONAN_ITS ---
Documented by User: Farhana Nicholson NP 07/10/24 13:09 HPI - Anesthesia Eval Consult details Narrative: 68yo F for Left Hernia Inguinal Reducible with mesh, 07/23/24 Cardiac optimized. Follows [facility] [place] cardiology for (none on 05/2024 ECHO), HTN/HLD Anesthesia Pre-Procedure Meds Is the patient on any of the following meds?: GLP1/DPP4 PMFSH Active Problems Active Problems: All Active Problems Preop cardiovascular exam (Acute) Left groin hernia (Acute) Left groin pain (Acute) Mild aortic stenosis (Acute) Osteoarthritis involving multiple joints on both sides of body (Acute) Anxiety, generalized (Acute) Lipid disorder (Acute) Pain management (Acute) Shoulder pain, left (Acute) Knee pain, left (Acute) Difficulty sleeping (Acute) Encounter for general adult medical examination with abnormal findings (Acute) Thyroid nodule (Acute) Mid back pain on right side (Acute) Difficulty swallowing pills (Acute) Esophageal dysfunction (Acute) Solid nodule of lung 6 mm to 8 mm in diameter (Acute) Non-cardiac chest pain (Acute) Diabetic neuropathy (Acute) Atypical chest pain (Acute) SOB (shortness of breath) on exertion (Acute) Left leg weakness (Acute) Left leg weakness (Acute) Chest pain (Acute) Uncontrolled diabetes mellitus (Acute) Pulmonary nodules (Acute) Myofascial pain syndrome (Acute) Vitamin D deficiency (Acute) HLD (hyperlipidemia) (Acute) HTN (hypertension) (Acute) T2DM (type 2 diabetes mellitus) (Acute) Aortic stenosis (Acute) Ascending aortic aneurysm (Acute) Back pain (Acute) Past Medical History Medical History (Updated 07/08/24 @ 14:55 by Salena Floyd RN) Pulmonary nodules Myofascial pain syndrome Vitamin D deficiency HLD (hyperlipidemia) HTN (hypertension) T2DM (type 2 diabetes mellitus) Ascending aortic aneurysm Aortic stenosis Back pain Family History Family History Father No problems noted. Mother Hx of arteritis Family history of problems with anesthesia: No Surgical History Surgical History Hx of tonsillectomy Hx of biopsy Hx of endoscopy Hx of shoulder surgery History of Problems with Anesthesia: No Social History Social History Household Members: Family and Children Housing: House Are you a primary respiratory care faculty to a significant other at home: No Do you presently have visiting nurse or other home services: No Alcohol intake: never Patient Tobacco Use Status: Never used Tobacco e-Cigarette/Vaping Use: Never Used Use of substances other than those prescribed or required for medical reasons: No Have you been hit, kicked, punched, or otherwise hurt by someone within the past year? If so, by whom?: No Spiritual Healthcare Practices: none Congregation Healthcare Practices: Christianity Cultural Healthcare Practices: none Are you DNR?: No Advance Directives: No Advance Directives Information Provided: Yes Advance Directives on File: No Recently lost weight without trying: No Eating poorly because of decreased appetite: No Nutrition Risks: No Nutritional Risk FDLMP: n/a Poor oral hygiene: No (upper & lower full denture) service: No Current occupational status: retired Cognitive needs: No Hearing needs: No Vision needs: Yes Meds Allergies Allergy/AdvReac Type Severity Reaction Status Date / Time coconut Allergy Intermediate Blister Verified 07/23/24 10:40 Home Medications ?Medication ?Instructions ?Recorded ?Confirmed ?Last Taken ?Type alprazolam 0.5 mg tablet 0.5 mg PO BID 03/14/22 07/23/24 Unknown History fluticasone propionate 50 1 spray intranasal DAILY 07/13/22 07/23/24 Unknown History mcg/actuation nasal spray,suspension celecoxib 200 mg capsule (Celebrex) 200 mg PO DAILY PRN Pain 06/05/24 07/23/24 07/22/24 History Exam Height,Weight and Vital Signs: Height 5 ft 4 in Weight 68.039 kg Pertinent Lab Results Pertinent Lab Results: Laboratory Tests 05/05/24 09:51 WBC 5.2 Hgb 12.4 Hct 37.7 Plt Count 250 Sodium 140 Potassium 4.4 Chloride 108 Carbon Dioxide 27 BUN 19 H Creatinine 0.64 Narrative Narrative: ECHO 05/2024 Conclusions: - The left ventricular systolic function is normal. The calculated ejection fraction is 68% by biplane method. - No obvious valvular pathology seen on this study. - Small plaque is seen in the sino tubular ridge. Assessment and Plan Assessment Anesthesia Assessment: Chart Reviewed Final Anesthetic Review Family History of Problems with Anesthesia: No History of Problems with Anesthesia: No Documented by User: Vanessa Martínez DO 07/23/24 11:22 HPI - Anesthesia Eval Anesthesia Pre-Procedure Meds Is the patient on any of the following meds?: GLP1/DPP4 PMFSH Past Medical History Medical History (Updated 07/08/24 @ 14:55 by Salena Floyd RN) Pulmonary nodules Myofascial pain syndrome Vitamin D deficiency HLD (hyperlipidemia) HTN (hypertension) T2DM (type 2 diabetes mellitus) Ascending aortic aneurysm Aortic stenosis Back pain Family History Family History Father No problems noted. Mother Hx of arteritis Family history of problems with anesthesia: No Surgical History Surgical History Hx of tonsillectomy Hx of biopsy Hx of endoscopy Hx of shoulder surgery History of Problems with Anesthesia: No Social History Social History Household Members: Family and Children Housing: House Are you a primary respiratory care faculty to a significant other at home: No Do you presently have visiting nurse or other home services: No Alcohol intake: never Patient Tobacco Use Status: Never used Tobacco e-Cigarette/Vaping Use: Never Used Use of substances other than those prescribed or required for medical reasons: No Have you been hit, kicked, punched, or otherwise hurt by someone within the past year? If so, by whom?: No Spiritual Healthcare Practices: none Congregation Healthcare Practices: Christianity Cultural Healthcare Practices: none Are you DNR?: No Advance Directives: No Advance Directives Information Provided: Yes Advance Directives on File: No Recently lost weight without trying: No Eating poorly because of decreased appetite: No Nutrition Risks: No Nutritional Risk FDLMP: n/a Poor oral hygiene: No (upper & lower full denture) service: No Current occupational status: retired Cognitive needs: No Hearing needs: No Vision needs: Yes Meds Allergies Allergy/AdvReac Type Severity Reaction Status Date / Time coconut Allergy Intermediate Blister Verified 07/23/24 10:40 Home Medications ?Medication ?Instructions ?Recorded ?Confirmed ?Last Taken ?Type alprazolam 0.5 mg tablet 0.5 mg PO BID 03/14/22 07/23/24 Unknown History fluticasone propionate 50 1 spray intranasal DAILY 07/13/22 07/23/24 Unknown History mcg/actuation nasal spray,suspension celecoxib 200 mg capsule (Celebrex) 200 mg PO DAILY PRN Pain 06/05/24 07/23/24 07/22/24 History Exam Exam Date and Time: 07/23/24 1120 Height,Weight and Vital Signs: Height 5 ft 4 in Weight 68.039 kg Vital Signs Temperature 97.9 F 07/23/24 10:43 Pulse Rate 71 07/23/24 10:43 Respiratory Rate 16 07/23/24 10:43 Blood Pressure 141/49 H 07/23/24 10:43 Pulse Oximetry 99 07/23/24 10:43 Oxygen Delivery Method Room Air 07/23/24 10:43 Temperature 97.9 F 07/23/24 10:43 Pulse Rate 71 07/23/24 10:43 Respiratory Rate 16 07/23/24 10:43 Blood Pressure 141/49 H 07/23/24 10:43 Pulse Oximetry 99 07/23/24 10:43 Oxygen Delivery Method Room Air 07/23/24 10:43 Airway Mallampati Class: I TM Dist: >3cm Neck ROM: Full Denture: Upper and Lower Heart: S1S2 Lungs: CTAB Assessment and Plan Assessment Anesthesia Assessment: Anesthesia Plan Discussed and Chart Reviewed Final Anesthetic Review Family History of Problems with Anesthesia: No History of Problems with Anesthesia: No NPO: Yes ASA Class: III Final Preanesthetic Review: No Changes in Pt Med Stat, Meds/Allgs Chart Reviewed, Consent Obtained/Reviewed and Anes Risks/Benef Reviewed Patient Risk: Intermediate Procedure Risk: Low Anesthetic Plan Anesthetic Plan: MAC: and Agree w/ Assess. and Plan Disposition: Standard PACU
[2024-07-23] MEDS: ceFAZolin Sodium/Dextrose,Iso 2 GM/50 ML PIGGYBACK IV (11:40)
[2024-07-23 12:18] VITALS: BP 114/47; PULSE 57; RESP 16; TEMP 36.4; O2SAT 98
[2024-07-23 12:32] VITALS: BP 108/48; PULSE 53; RESP 16; O2SAT 98
--- NOTE | 2024-07-23 12:32 | W.PM.OPN ---
Operative Note Operative Note Date of Service: 07/23/24 Narrative: Preoperative diagnosis: [] Left groin hernia Postop diagnosis: [] Left inguinal hernia Procedure [] open left inguinal herniorrhaphy with Bard mesh Surgeon: [] Bebeto Microeconomics Professor: [] Peyton Type of Anesthesia: [] MAC Indication for surgery: [] Symptomatic enlarging left groin hernia. Intraoperative findings demonstrated moderately sized indirect left inguinal hernia. No direct hernia demonstrated. No femoral hernia demonstrated. Findings: [] Patient brought to the operating room, placed on operative table supine position, after an adequate level of MAC anesthesia was induced, the left groin was prepped and draped in usual sterile fashion using a small left para inguinal incision, this carried down through skin, subcutaneous tissue, Cameron's fascia. External oblique fascia was identified and opened indirect in of his fibers. Exploration of the inguinal canal demonstrated findings as noted above. Indirect hernia was reduced. Exploration of the floor and femoral area demonstrated no other hernias. A Bard plug was placed in the indirect defect and sutured inferiorly to the inguinal ligament, and superiorly transversalis fascia using interrupted 0 at the whitt suture. Grasped also covered inguinal floor. At completion of procedure, mesh was in good position with no gaps or tension. Wound was irrigated, secured hemostasis, and closed in the following manner; external oblique fascia was closed using running 2-0 Vicryl suture. Cameron's fascia was reapproximated using interrupted 3-0 Vicryl suture. Interrupted inverted deep dermal 3-0 Vicryl sutures followed by running subcuticular 4-0 Vicryl sutures were placed. Steri-Strips and sterile dressings were applied. Wound was infiltrated at the beginning at the end of the case with 0.5% Marcaine/1% lidocaine. Sponge, needle, and instrument counts reported correct. Patient tolerated the procedure well and emerged from anesthesia stable condition. EBL minimal
[2024-07-23 12:47] VITALS: BP 122/47; PULSE 62; RESP 16; O2SAT 96
[2024-07-23 13:03] VITALS: BP 122/43; PULSE 55; RESP 16; TEMP 36.3; O2SAT 97
== END 2024-07-23 13:29 | disposition home or self-care (01) ==
PROVIDERS: PCP Internal Medicine; Visit Provider Surgery
PROC: (CPT 49505; principal; 2024-07-23 11:30)
DX: K40.90 Unilateral inguinal hernia, without obstruction or gangrene, not specified as recurrent (principal); M79.18 Myalgia, other site; E55.9 Vitamin D deficiency, unspecified; R91.8 Other nonspecific abnormal finding of lung field; I10 Essential (primary) hypertension; I35.0 Nonrheumatic aortic (valve) stenosis; I71.21 Aneurysm of the ascending aorta, without rupture; E78.5 Hyperlipidemia, unspecified; E11.9 Type 2 diabetes mellitus without complications; Z79.84 Long term (current) use of oral hypoglycemic drugs; Z79.85 Long-term (current) use of injectable non-insulin antidiabetic drugs; Z79.51 Long term (current) use of inhaled steroids; Z79.899 Other long term (current) drug therapy; Z98.890 Other specified postprocedural states
CPT/HCPCS: 49505; 82947; C1781; J0690; J2003; J2250; J2704; J2795; J3010

== ENCOUNTER → 2024-07-23 10:14 | Outpatient (BNV) | payer MEDICARE, SELFPAY | PROVIDERS: PCP Internal Medicine; Visit Provider Surgery | DX: K40.90 Unilateral inguinal hernia, without obstruction or gangrene, not specified as recurrent (principal) | CPT/HCPCS: 49505 ==

== ENCOUNTER 2024-08-04 08:53 | Outpatient (AMB) | payer MEDICARE, SELFPAY ==
--- NOTE | 2024-08-04 08:58 | A.OFFVIS_ITS ---
Vital Signs 08/04/24 09:05 Weight 147 lb BP 130/58 L Blood Pressure Location Rt brachial Position Sitting Pulse 71 Intake Visit Reasons: s/p Open left groin hernia Intake Note: Patient here s/p open left inguinal herniorrhaphy with Bard mesh. Reports incision healing well. Patient c/o: afraid to remove bandage. Denies pain or discomfort. No longer taking rx pain med. Surgery: 07-23-2024 Unified Communications Engineer Required: No Accompanied by: son Francia Allergies coconut Allergy (Intermediate, Verified 08/04/24 09:06) Blister HPI Comments Details: Patient presents with her son for follow-up. Aside from incisional discomfort which is improving she is otherwise doing well. He is tolerating a diet. Having regular bowel habits. She is increasing her activity level. [facility] Medical History (Updated 07/08/24 @ 14:55 by Salena Floyd RN) Pulmonary nodules Myofascial pain syndrome Vitamin D deficiency HLD (hyperlipidemia) HTN (hypertension) T2DM (type 2 diabetes mellitus) Ascending aortic aneurysm Aortic stenosis Back pain Surgical History (Updated 08/04/24 @ 09:19 by Nitish Tate MD) Hx of tonsillectomy Hx of biopsy Hx of endoscopy Hx of shoulder surgery Family History Father No problems noted. Mother Hx of arteritis Social History Household Members: Family and Children Housing: House Are you a primary healthcare facility administrator to a significant other at home: No Do you presently have visiting nurse or other home services: No Alcohol intake: never Patient Tobacco Use Status: Never used Tobacco e-Cigarette/Vaping Use: Never Used service: No Current occupational status: retired Cognitive needs: No Hearing needs: No Vision needs: Yes Physical Exam Vital Signs: Last Vital Signs Pulse 71 08/04/24 09:05 BP 130/58 L 08/04/24 09:05 GI Other: Abdomen is soft. Incision clean dry and intact healing well Assessment & Plan Assessment & Plan (1) Status post inguinal hernia repair using synthetic patch: Code(s): Z98.890 - Other specified postprocedural states; Z87.19 - Personal history of other diseases of the digestive system Category: Medical Plan Patient was been given local instructions including avoiding strenuous activities next few weeks time and will otherwise follow-up p.r.n.. All questions answered Coding Level of Care Code Global (28316) Diagnoses Status post inguinal hernia repair using synthetic patch Z98.890; Z87.19
[2024-08-04 09:05] VITALS: BP 130/58; PULSE 71
== END 2024-08-04 09:24 | disposition home or self-care (01) ==
LOC: HO.HGS 08:53
PROVIDERS: PCP Internal Medicine; Visit Provider Surgery
DX: Z98.890 Other specified postprocedural states (principal); Z87.19 Personal history of other diseases of the digestive system
CPT/HCPCS: 99024

== ENCOUNTER → 2024-08-04 08:53 | Outpatient (BNVA) | payer MEDICARE, SELFPAY | PROVIDERS: PCP Internal Medicine; Visit Provider Surgery | DX: Z98.890 Other specified postprocedural states (principal); Z87.19 Personal history of other diseases of the digestive system | CPT/HCPCS: 99212 ==

== ENCOUNTER 2024-09-22 12:20 | Outpatient (AMB) | payer MEDICARE, SELFPAY ==
--- NOTE | 2024-09-22 12:23 | A.OFFPC_ITS ---
Vital Signs 09/22/24 12:24 Height 5 ft 4 in Weight 151 lb 8 oz BMI 26.0 BP 112/62 Blood Pressure Location Lt brachial Position Sitting Pulse 71 Pulse Source Pulse Oximeter Pulse Oximetry (%) 96 Oxygen Delivery Method Room Air Intake Visit Reasons: Annual PE - see comments Allergies coconut Allergy (Intermediate, Verified 09/22/24 12:24) Blister Medication List - Last Reconciled 09/22/24 by Kal Hutchins MD alprazolam 0.5 mg PO BID atorvastatin 40 mg PO DAILY blood sugar diagnostic 1 strip miscellaneous TID blood sugar diagnostic (FreeStyle Lite Strips) As directed blood-glucose meter As directed, One Touch device compatible- may substitute celecoxib (Celebrex) 200 mg PO DAILY PRN cholecalciferol (vitamin D3) 50 mcg PO DAILY 30 days [Diabetic shoes As directed] [diabetic shoes As directed] dulaglutide 1.5 mg (0.5 mL) subcut QWEEK 90 days fluticasone propionate 50 mcg/actuation 1 spray intranasal DAILY glucose 4 grams PO Q15M PRN 30 days lancets (OneTouch Delica Lancets) As directed lisinopril 2.5 mg PO DAILY metformin ER 1,000 mg (2 x 500 mg) PO BID pantoprazole 40 mg PO BID Tobacco use date assessed: 09/22/24 Fall risk assessment: No Falls in past year Last assessed Fall Risk: 09/22/24 Dental Screening Dental Screen Date: 09/22/24 Did you have a dental problem in the last 6 months where you did not have access to dental care?: No HPI Annual PE - see comments 2 HPI Details Patient is 67-year-old female came in today for physical examination Patient has history of diabetes, diabetic neuropathy, esophageal motility disorder Anxiety disorder, lipid disorder arthrosis, vitamin-D deficiency, chronic GERD She is seeing Dr. Martinez for Gastroenterology Diabetes management is through PCP office Declined to have mammogram Declined to have colonoscopy Declined to have Pap smear Last set of lab was April of 2024 CBC is within normal limit Hemoglobin A1c was 6.6 Medications: Patient is on atorvastatin 40 mg Celebrex Vitamin-D Trulicity 1.5 mg Flonase nasal spray Lisinopril 2.5 mg And alprazolam 0.5 mg b.i.d. p.r.n. for anxiety Pantoprazole [address] Martinez Labs were supposed to be done before this visit order was placed in April but patient forgot Patient reminded to do it fasting Follow-up 4 months PFSH Medical History Pulmonary nodules Myofascial pain syndrome Vitamin D deficiency HLD (hyperlipidemia) HTN (hypertension) T2DM (type 2 diabetes mellitus) Ascending aortic aneurysm Aortic stenosis Back pain Surgical History Hx of tonsillectomy Hx of biopsy Hx of endoscopy Hx of shoulder surgery Family History Father No problems noted. Mother Hx of arteritis Social History Household Members: Family and Children Housing: House Are you a primary health careers instructor to a significant other at home: No Do you presently have visiting nurse or other home services: No Alcohol intake: never Patient Tobacco Use Status: Never used Tobacco e-Cigarette/Vaping Use: Never Used service: No Current occupational status: retired Cognitive needs: No Hearing needs: No Vision needs: Yes Questionnaire PHQ-9 Over the last 2 weeks, how often have you been bothered by any of the following problems? 1. Little interest or pleasure in doing things: several days 2. Feeling down, depressed, or hopeless: not at all 3. Trouble falling or staying asleep, or sleeping too much: several days 4. Feeling tired or having little energy: several days 5. Poor appetite or overeating: not at all 6. Feeling bad about yourself - or that you are a failure or have let yourself or your family down: not at all 7. Trouble concentrating on things, such as reading the newspaper or watching television: several days 8. Moving or speaking so slowly that other people could have noticed. Or the opposite - being so fidgety or restless that you have been moving around a lot more than usual: not at all 9. Thoughts that you would be better off or of hurting yourself in some way: not at all Total score: 4 Depression Screening Interpretation: Negative Depression Screening Done: Yes 09264 - PHQ-9 Billing: Yes Source: Developed by Drs. Zhen Ghosh, Ruth Abraham, Joseph Shook and colleagues, with an educational natty from [employer] Thrive Questionnaire Date Thrive assessed: 09/22/24 I am a: Patient What is your living situation today?: I have a steady place to live Within the past 12 months, did the food you bought not last and you didn't have the money to get more?: Often true Within the past 12 months, did you worry whether your food would run out before you got money to buy more?: I choose not to answer this question Do you have trouble paying for medicines?: No Do you have trouble getting transportation to medical appointments?: No Do you have trouble paying your heating and electricity bill?: No Do you have trouble taking care of your child, family member or friend?: No Do you have trouble with day-to-day activities such as bathing, preparing meals, shopping, managing finances, etc.?: No Are you currently unemployed and looking for a job?: No Are you interested in more education?: No Please select the resources that you would like help with: None Currently or been in a relationship where the following occur: I choose not to answer THRIVE Score: 1 AUDIT C Alcohol Use Questionnaire (AUDIT-C) 1. How often do you have a drink containing alcohol?: Never 3. How often do you have six or more drinks on one occasion?: Never Total Score: 0 Score Reviewed/Action Taken: Yes DICK-7 AMB Questionnaire DICK-7 Date DICK - 7 assessed: 09/22/24 Feeling nervous, anxious, or on edge: 0 = Not at all Not being able to stop or control worryin = Not at all Worrying too much about different things: 0 = Not at all Trouble relaxin = Not at all Being so restless that it is hard to sit still: 0 = Not at all Becoming easily annoyed or irritable: 0 = Not at all Feeling afraid as if something awful might happen: 0 = Not at all Total DICK-7 score (0-4 normal; 5-9 mild; 10-14 moderate; 15-21 severe): 0 Source: Developed by Ruth Mckenzie Kurt Kroenke and colleagues, with an educational natty from [employer] DICK-7 Assessment Billing DICK-7 Assessment Tool: DICK-7 Assessment 73177 Review of Systems Const Denies chills, Denies fever(s) and Denies headache(s) Eyes Denies blurry vision ENT Denies headache(s), Denies nasal discharge, Denies nasal obstruction, Denies odynophagia and Denies sinus pain Card Denies chest pain at rest and Denies chest pain with activity Resp Denies cough and Denies hemoptysis GI Denies diarrhea, Denies odynophagia, Denies vomiting and Denies hematemesis Reports as per HPI Musc Denies abnormal gait Skin/Breast Reports as per HPI Neuro Denies Neuro-related abnormal movements, Denies Abnormal speech present, Denies abnormal gait, Denies headache(s) and Denies Sensory deficit (Neuro) Psych Denies mood swings and Denies paranoia Endo Reports as per HPI Ramiro/Lymph Reports as per HPI Aller/Immun Reports as per HPI Physical exam (Primary Care) Vital Signs: Last Vital Signs Pulse 71 09/22/24 12:24 BP 112/62 09/22/24 12:24 Pulse Ox 96 09/22/24 12:24 Oxygen Delivery Method Room Air 09/22/24 12:24 BMI result Body Mass Index 26.0 Tobacco/Smoking Status: Tobacco use Status Tobacco use date assessed 09/22/24 09/22/24 12:28 Patient Tobacco Use Status Never used Tobacco 09/22/24 12:28 e-Cigarette/Vaping Use Never Used 09/22/24 12:28 PHQ-9: PHQ-9 Score PHQ-9: Total score 4 09/22/24 12:28 Depression Screening Interpretation: Negative Thrive Assessment: Date of Thrive Assessment Date Thrive assessed 09/22/24 09/22/24 12:28 Currently or been in a relationship where the following occur: I choose not to answer Const General: cooperative, comfortable and no acute distress Orientation/consciousness: patient oriented x3 HENMT Head: Yes normocephalic and Yes atraumatic Eyes General: appearance normal, both eyes and all related structures Pupils: Equal, round and reactive pupils present EOM: EOMs intact bilaterally Neck Neck: Yes supple and No lymphadenopathy Thyroid: Thyroid normal Lymphatic: no lymphadenopathy noted Chest Breast/axilla palpation: normal palpation of the breasts Resp Effort & Inspection: normal respiratory effort and able to speak in complete sentences Auscultation: clear to auscultation bilaterally Cardio Heart sounds: S1 normal heart sound present and S2 normal heart sound present GI Palpation (GI): Soft to palpation and nontender Auscultation: normal bowel sounds General: Yes no CVA tenderness Back/Spine/Pelvis Back: no CVA tenderness Skin General skin exam: elasticity normal and turgor normal Neuro General: patient oriented x3 and gait normal Cranial nerves: Yes Equal, round and reactive pupils present Speech: No Abnormal speech present Sensory Exam: No Sensory deficit (Neuro) Coordination: tandem gait normal and Romberg test negative Extrem General: Yes normal exam except as noted and No edema Coding Level of Care Code Est Pt Level 3 (46589) Est Pt Prev Care >65y(05649) Diagnoses Encounter for general adult medical examination with abnormal findings Z00.01 Anxiety, generalized F41.1 Osteoarthritis involving multiple joints on both sides of body M15.9 Lipid disorder E78.9 Esophageal dysfunction K22.4 Diabetic polyneuropathy associated with type 2 diabetes mellitus E11.42 Diabetes mellitus type: type 2 Diabetes mellitus complication detail: diabetic polyneuropathy Type 2 diabetes mellitus without complication, without long-term current use of insulin E11.9 Diabetes mellitus [facility] insulin use: without [facility] use Diabetes mellitus complication status: without complication Aortic valve stenosis, etiology of cardiac valve disease unspecified I35.0 Cardiac valve disease etiology: etiology unspecified Aneurysm of ascending aorta without rupture I71.21 Presence of rupture: without rupture Additional Codes DICK-7 Assessment Billing - DICK-7 Assessment Tool: DICK-7 Assessment 44342 ([id number]) PHQ-9 - 55887 - PHQ-9 Billing: Yes ([id number]) Assessment & Plan Assessment & Plan (1) Encounter for general adult medical examination with abnormal findings: Code(s): Z00.01 - Encounter for general adult medical examination with abnormal findings Category: Medical (2) Anxiety, generalized: Code(s): F41.1 - Generalized anxiety disorder Category: Medical (3) Osteoarthritis involving multiple joints on both sides of body: Code(s): M15.9 - Polyosteoarthritis, unspecified Category: Medical (4) Lipid disorder: Code(s): E78.9 - Disorder of lipoprotein metabolism, unspecified Category: Medical (5) Esophageal dysfunction: Code(s): K22.4 - Dyskinesia of esophagus Category: Medical (6) Diabetic neuropathy: Code(s): E11.40 - Type 2 diabetes mellitus with diabetic neuropathy, unspecified Category: Medical Qualifiers: Diabetes mellitus type: type 2 Diabetes mellitus complication detail: diabetic polyneuropathy Qualified Code(s): E11.42 - Type 2 diabetes mellitus with diabetic polyneuropathy (7) T2DM (type 2 diabetes mellitus): Code(s): E11.9 - Type 2 diabetes mellitus without complications Category: Medical Qualifiers: Diabetes mellitus termite control servicer insulin use: without termite control servicer use Diabetes mellitus complication status: without complication Qualified Code(s): E11.9 - Type 2 diabetes mellitus without complications (8) Aortic stenosis: Comment: ECHO done 06/10/24 states no aortic valve stenosis Code(s): I35.0 - Nonrheumatic aortic (valve) stenosis Category: Medical Qualifiers: Cardiac valve disease etiology: etiology unspecified Qualified Code(s): I35.0 - Nonrheumatic aortic (valve) stenosis (9) Ascending aortic aneurysm: Comment: ECHO done 06/10/24 states ascending aorta is normal in size Code(s): I71.2 - Thoracic aortic aneurysm, without rupture Category: Medical Qualifiers: Presence of rupture: without rupture Qualified Code(s): I71.21 - Aneurysm of the ascending aorta, without rupture Plan Patient is 67-year-old female came in today for physical examination Patient has history of diabetes, diabetic neuropathy, esophageal motility disorder Anxiety disorder, lipid disorder arthrosis, vitamin-D deficiency, chronic GERD She is seeing Dr. Martinez for Gastroenterology Diabetes management is through PCP office Dr. Lei cardiology for the management mild aortic stenosis and ascending aortic aneurysm Declined to have mammogram Declined to have colonoscopy Declined to have Pap smear Last set of lab was April of 2024 CBC is within normal limit Hemoglobin A1c was 6.6 Medications: Patient is on atorvastatin 40 mg Celebrex Vitamin-D Trulicity 1.5 mg Flonase nasal spray Lisinopril 2.5 mg And alprazolam 0.5 mg b.i.d. p.r.n. for anxiety Pantoprazole [address] Martinez Labs were supposed to be done before this visit order was placed in April but patient forgot Patient reminded to do it fasting Follow-up 6 months
[2024-09-22 12:24] VITALS: BP 112/62; PULSE 71; O2SAT 96; BMI 26.0
== END 2024-09-22 12:44 | disposition home or self-care (01) ==
LOC: HO.HMCC 12:20
PROVIDERS: PCP Internal Medicine; Visit Provider Internal Medicine
DX: Z00.01 Encounter for general adult medical examination with abnormal findings (principal); E11.42 Type 2 diabetes mellitus with diabetic polyneuropathy; F41.1 Generalized anxiety disorder; M15.9 Polyosteoarthritis, unspecified; E78.9 Disorder of lipoprotein metabolism, unspecified; K22.4 Dyskinesia of esophagus; I35.0 Nonrheumatic aortic (valve) stenosis; I71.21 Aneurysm of the ascending aorta, without rupture

== ENCOUNTER → 2024-09-22 12:20 | Outpatient (BNVA) | payer MEDICARE, SELFPAY | PROVIDERS: PCP Internal Medicine; Visit Provider Internal Medicine | DX: Z00.01 Encounter for general adult medical examination with abnormal findings (principal); F41.1 Generalized anxiety disorder; M15.9 Polyosteoarthritis, unspecified; E78.9 Disorder of lipoprotein metabolism, unspecified; K22.4 Dyskinesia of esophagus; E11.42 Type 2 diabetes mellitus with diabetic polyneuropathy; I35.0 Nonrheumatic aortic (valve) stenosis; I71.21 Aneurysm of the ascending aorta, without rupture | CPT/HCPCS: 96127; 99397 ==

== ENCOUNTER 2024-09-23 06:41 | Outpatient (REF) | payer MEDICARE, SELFPAY ==
[2024-09-23 10:51] LABS: Estimated Average Glucose 143 mg/dL; Hemoglobin A1c % 6.6 % (<6.0)
[2024-09-23 10:57] LABS: Alanine Aminotransferase 21 U/L (0-31); Alkaline Phosphatase 68 U/L (39-117); Anion Gap 7 (12-20); Aspartate Amino Transferase 24 U/L (5-31); Bilirubin Total 0.3 mg/dL (0.0-1.0); Blood Urea Nitrogen 17 mg/dL (9-16); Calcium 9.5 mg/dL (8.4-10.2); Carbon Dioxide 28 mmol/L (22-29); Chloride 105 mmol/L (96-108); Cholesterol 154 mg/dL (<200); Estimated Glomerular Filt Rate > 60; Glucose Fasting 132 mg/dL (60-99); HDL Cholesterol 54 mg/dL (>40); LDL Cholesterol Calculated 86 mg/dL (<100); Potassium 4.2 mmol/L (3.3-5.1); Sodium 136 mmol/L (135-145); Total Protein 6.4 g/dL (6.5-8.0); Triglycerides 73 mg/dL (<150)
[2024-09-23 11:13] LABS: Microalbumin Urine < 5.0 mg/L
== END 2024-09-23 06:42 | disposition home or self-care (01) ==
LOC: HO.HMGCLDS 06:41
PROVIDERS: PCP Internal Medicine; Visit Provider Internal Medicine
DX: E11.42 Type 2 diabetes mellitus with diabetic polyneuropathy (principal); E78.9 Disorder of lipoprotein metabolism, unspecified; K22.4 Dyskinesia of esophagus; E55.9 Vitamin D deficiency, unspecified; I10 Essential (primary) hypertension; M15.9 Polyosteoarthritis, unspecified
CPT/HCPCS: 36415; 80053; 80061; 82043; 82570; 83036

== ENCOUNTER 2025-03-16 10:24 | Outpatient (AMB) | payer MEDICARE, SELFPAY ==
--- NOTE | 2025-03-16 10:48 | A.OFFVIS_ITS ---
Intake Visit Reasons: 6 months anxiety Allergies coconut Allergy (Intermediate, Verified 09/22/24 12:24) Blister Medication List - Last Reconciled 03/16/25 by Juan F Bran MD alprazolam 0.5 mg PO BID atorvastatin 40 mg PO DAILY blood sugar diagnostic 1 strip miscellaneous TID blood sugar diagnostic (FreeStyle Lite Strips) As directed blood-glucose meter As directed, One Touch device compatible- may substitute celecoxib (Celebrex) 200 mg PO DAILY PRN cholecalciferol (vitamin D3) 50 mcg PO DAILY 30 days [Diabetic shoes As directed] [diabetic shoes As directed] dulaglutide 1.5 mg (0.5 mL) subcut QWEEK 90 days fluticasone propionate 50 mcg/actuation 1 spray intranasal DAILY glucose 4 grams PO Q15M PRN 30 days lancets ([employer] Delica Lancets) As directed lisinopril 2.5 mg PO DAILY metformin ER 1,000 mg (2 x 500 mg) PO BID pantoprazole 40 mg PO BID HPI Comments Details: She has beenstable. Staying active. Spent 3 months in [facility] helping her sister. Quit smoking 3 yrs ago. ?Weight is stable. Her diabetes is under control. Dysphagia has inproved? after had esophageal dilatation. Feeling some discomfort in her soft palate.? CT head and sinuses were normal. There are times when the symptoms get worse and she gets quite tremulous and shaky. She's had some GI workup in the past and a barium swallow about a year or 2 ago, however the report is not available. Says she had upper endoscopy. Feels food and water gets stuck in mid esophagus. Sees Dr. Martinez. [facility] Medical History (Updated 03/16/25 @ 10:51 by Juan F Bran MD) Dysphagia Pulmonary nodules Myofascial pain syndrome Vitamin D deficiency HLD (hyperlipidemia) HTN (hypertension) T2DM (type 2 diabetes mellitus) Ascending aortic aneurysm Aortic stenosis Back pain Surgical History Hx of tonsillectomy Hx of biopsy Hx of endoscopy Hx of shoulder surgery Family History Father No problems noted. Mother Hx of arteritis Social History Household Members: Family and Children Housing: House Are you a primary childcare provider to a significant other at home: No Do you presently have visiting nurse or other home services: No Alcohol intake: never Patient Tobacco Use Status: Never used Tobacco e-Cigarette/Vaping Use: Never Used service: No Current occupational status: retired Cognitive needs: No Hearing needs: No Vision needs: Yes Review of Systems Const Details: Sleep:? Difficulty getting to sleepdenies.? Difficulty maintaining sleepdenies?.? Urge to move legsdenies.? Teeth grindingdenies.? Shouting or Kicking during sleep denies.? Abnormal behavior during sleepdenies.? Excessive sleepdenies.? Snoring denies.? Daytime sleepinessdenies. ???General/Constitutional:? Change in appetitedenies.? Chillsdenies.? Fatiguedenies.? Feverdenies.? Weight gaindenies.? Weight lossadmits. ???Ophthalmologic:? Blurred visiondenies.? Diminished visual acuitydenies. ???ENT:? Stuffinessdenies.? Decreased hearingdenies.? Dry mouthdenies.? Ear paindenies.? Nosebleeddenies.? Ringing in the earsdenies.? Sinus paindenies.? Sore throat denies.? Swollen glandsdenies. ???Endocrine:? Cold intolerancedenies.? Excessive thirstdenies.? Frequent urinationdenies.? Heat intolerancedenies. ???Respiratory:? Shortness of breathdenies.? Chest paindenies.? Coughdenies. ???Breast:? Breast lumpdenies.? Nipple dischargedenies. ???Cardiovascular:? Chest pain at restdenies.? Chest pain with exertiondenies.? Claudicationdenies .? Dizzinessdenies.? Fluid accumulation in the legsdenies.? Irregular heartbeat denies.? Palpitationsdenies. ???Gastrointestinal:? Abdominal paindenies.? Constipationdenies.? Diarrheadenies.? Difficulty swallowingdenies.? Heartburndenies.? Nauseadenies.? Rectal bleedingdenies. ???Hematology:? Easy bruisingdenies.? Prolonged bleedingdenies. ???Genitourinary:? Frequent urinationdenies.? Urgencydenies.? Incontinencedenies.? Erectile Dysfunctiondenies. ???Musculoskeletal:? Neck paindenies.? Back paindenies.? Muscle achesdenies.? Painful jointsdenies.? Sciaticadenies.? Weaknessdenies. ???Podiatric:? Difficulty walkingdenies.? Foot numbnessdenies. ???Neurologic:? Difficulty swallowingadmits.? Balance difficultydenies.? Coordinationnormal.? Difficulty speakingdenies.? Dizzinessdenies.? Faintingdenies.? Gait abnormality denies.? Headacheadmits.? Loss of strengthdenies.? Loss of use of extremity denies.? Low back paindenies.? Memory lossdenies.? Seizuresdenies.? Ticsdenies.? Tingling/Numbnessdenies.? Transient loss of visiondenies.? Tremoradmits. ???Psychiatric:? Anxietyadmits.? Auditory/visual hallucinationsdenies.? Delusionsdenies.? Dep ressed moodadmits.? Stressorsdenies.? Substance abusedenies.? Suicidal thoughts denies. Physical Exam Neuro Other: Neurological: Abnormal neurological findings:??none.?Mental Status:??alert and oriented X 3,?Normal attention, orientation, memory and affect.?Cranial Nerves:??Pupils are equal, round and reactive to light. Fundoscopy shows normal disc bilaterally. External occular muscles are intact. Visual wilson are full, no ptosis. Face is symmetrical, no facial weakness or droop. Facial sensations are normal. Tongue protrudes in midline. Palate elevates symmetrically. Shoulder shrugging is normal..?Motor Examination:??Normal muscle tone, bulk and strength,?No atrophy or fasciculations,?No drift of the extended upper extremities,?Deep tendon reflexes are 2+?,?Plantars are flexor?.?Straight Leg Raising:??90 degrees.?Sensory Exam:??Normal light touch, temperature, pinprick, vibration and joint-position sensations?,?Rhomberg sign is absent.?Coordination:??no at axia,?no titubation,?hlheyo-[id number]-jidu, laek-[id number]-odxb test and rapid alternating movements were normal.?Gait Exam:??Within normal limits.?Cerebellar Signs:??Xlkiom-mn-zjch and wmpp-vq-fadi is normal,?no dysdiadochokinesia?.?Extrapyramidal System:??No tremor, rigidity with normal facial expressions,?No bradykinesia, no bradyphrenia. Normal arm swing and posture. No propulsion or retropulsion.?Speech:??Normal,?no dysphasia or dysarthria..? Mini Mental Status Exam: Level of Consciousness:??Alert.?Orientation:??Knows correct year, month, date, day and season,?Knows correct city, county and state. Knows correct location and floor.?Registration:??Able to register 3 objects.?Attention:??Serial 7's performed accurately.?Recall:??Able to recall 3 out of 3 objects.?[employer] guage:??Normal spontaneous speech, fluency, repetition,naming, comprehension, reading and writing.?Total Score:??30/30.? Assessment & Plan Assessment & Plan (1) Anxiety, generalized: Code(s): F41.1 - Generalized anxiety disorder Category: Medical (2) Dysphagia: Code(s): R13.10 - Dysphagia, unspecified Category: Medical Plan continue current meds Medications: Changed From alprazolam 0.5 mg PO BID To alprazolam 0.5 mg PO BID 60 tabs 5RF 30 days Coding Level of Care Code Est Pt Level 4 (93386) Diagnoses Anxiety, generalized F41.1 Dysphagia R13.10
== END 2025-03-16 11:04 | disposition home or self-care (01) ==
LOC: HO.HSM 10:26
PROVIDERS: PCP Internal Medicine; Visit Provider Psychiatry & Neurology Neurology
DX: F41.1 Generalized anxiety disorder (principal); R13.10 Dysphagia, unspecified
CPT/HCPCS: 99214

== ENCOUNTER → 2025-03-16 10:24 | Outpatient (BNVA) | payer MEDICARE, SELFPAY | PROVIDERS: PCP Internal Medicine; Visit Provider Psychiatry & Neurology Neurology | DX: F41.1 Generalized anxiety disorder (principal); R13.10 Dysphagia, unspecified | CPT/HCPCS: 99212 ==

== ENCOUNTER 2025-03-19 07:41 | Outpatient (REF) | payer MEDICARE, SELFPAY ==
[2025-03-19 10:09] LABS: MANUAL DIFF FLAG NO
[2025-03-19 10:25] LABS: Hematocrit 39.7 % (37.0-47.0); Hemoglobin 12.7 g/dl (12.0-16.0); Imm Gran Abs Auto 0.02 X10*3/uL (0.00-0.03); Imm Gran Pct Auto 0.4 % (0.0-0.4); Lymphocytes Absolute Auto 1.6 X10*3/uL (1.2-4.9); Mean Corpuscular HGB Conc 32.0 g/dl (31.0-35.0); Mean Corpuscular Hemoglobin 28.0 pg (27.0-33.0); Mean Corpuscular Volume 87.6 fL (80.0-98.0); NRBC Abs Auto 0.000 X10*3/uL (0.0-0.012); NRBC Pct Auto 0.0 /100WBC (0.0-0.2); Platelet Count 254 X10*3/uL (160-400); Red Blood Count 4.53 X10*6/uL (4.20-5.50); White Blood Count 5.4 X10*3/uL (4.8-10.8)
[2025-03-19 10:37] LABS: Alanine Aminotransferase 20 U/L (0-31); Albumin Level 4.2 g/dL (3.5-5.0); Alkaline Phosphatase 74 U/L (39-117); Anion Gap 9 (12-20); Aspartate Amino Transferase 21 U/L (5-31); Blood Urea Nitrogen 15 mg/dL (9-16); Calcium 9.4 mg/dL (8.4-10.2); Carbon Dioxide 31 mmol/L (22-29); Chloride 106 mmol/L (96-108); Cholesterol 147 mg/dL (<200); Estimated Glomerular Filt Rate > 60; HDL Cholesterol 57 mg/dL (>40); Potassium 4.6 mmol/L (3.3-5.1); Sodium 141 mmol/L (135-145); Total Protein 6.9 g/dL (6.5-8.0); Triglycerides 70 mg/dL (<150)
== END 2025-03-19 07:42 | disposition home or self-care (01) ==
LOC: HO.HMGCLDS 07:41
PROVIDERS: PCP Internal Medicine; Visit Provider Internal Medicine
DX: E11.9 Type 2 diabetes mellitus without complications (principal); F41.1 Generalized anxiety disorder; E78.9 Disorder of lipoprotein metabolism, unspecified
CPT/HCPCS: 36415; 80053; 80061; 83036; 85025

== ENCOUNTER 2025-03-23 08:39 | Outpatient (AMB) | payer MEDICARE, SELFPAY ==
--- NOTE | 2025-03-23 11:08 | A.OFFPC_ITS ---
Intake Visit Reasons: 6 months f/up Allergies coconut Allergy (Intermediate, Verified 09/22/24 12:24) Blister Medication List - Last Reconciled 03/23/25 by Kal Hutchins MD alprazolam 0.5 mg PO BID 30 days atorvastatin 40 mg PO DAILY blood sugar diagnostic 1 strip miscellaneous TID blood sugar diagnostic (FreeStyle Lite Strips) As directed blood-glucose meter As directed, One Touch device compatible- may substitute cholecalciferol (vitamin D3) 50 mcg PO DAILY 30 days [Diabetic shoes As directed] [diabetic shoes As directed] dulaglutide 1.5 mg (0.5 mL) subcut QWEEK 90 days fluticasone propionate 50 mcg/actuation 1 spray intranasal DAILY glucose 4 grams PO Q15M PRN 30 days lancets (AmicrobeTouch Delica Lancets) As directed lisinopril 2.5 mg PO DAILY metformin ER 1,000 mg (2 x 500 mg) PO BID pantoprazole 40 mg PO BID Tobacco use date assessed: 09/22/24 Dental Screening Dental Screen Date: 09/22/24 HPI 6 months f/up HPI Details Patient is 67-year-old female , its her regular f.u apt Patient has history of diabetes, diabetic neuropathy, esophageal motility disorder Anxiety disorder, lipid disorder arthrosis, vitamin-D deficiency, chronic GERD She is seeing Dr. Martinez for Gastroenterology Diabetes management is through PCP office Hemoglobin A1c is 6.7 on recent labs Medications: Patient is on atorvastatin 40 mg Celebrex [ no longer taking ] Vitamin-D Trulicity 1.5 mg Flonase nasal spray Lisinopril 2.5 mg And alprazolam 0.5 mg b.i.d. p.r.n. for anxiety thru Dr Bran Pantoprazole [address] Maritnez Follow-up 4 months [facility], [facility] Medical History Dysphagia Pulmonary nodules Myofascial pain syndrome Vitamin D deficiency HLD (hyperlipidemia) HTN (hypertension) T2DM (type 2 diabetes mellitus) Ascending aortic aneurysm Aortic stenosis Back pain Surgical History Hx of tonsillectomy Hx of biopsy Hx of endoscopy Hx of shoulder surgery Family History Father No problems noted. Mother Hx of arteritis Social History Household Members: Family and Children Housing: House Are you a primary lawn care professional to a significant other at home: No Do you presently have visiting nurse or other home services: No Alcohol intake: never Patient Tobacco Use Status: Never used Tobacco e-Cigarette/Vaping Use: Never Used service: No Current occupational status: retired Cognitive needs: No Hearing needs: No Vision needs: Yes Questionnaire Thrive Questionnaire Date Thrive assessed: 09/22/24 DICK-7 AMB Questionnaire DICK-7 Date DICK - 7 assessed: 09/22/24 Source: Developed by Drs. Zhen Ghosh, Ruth Abraham, Joseph Shook and colleagues, with an educational natty from [employer]. Review of Systems Const Denies chills and Denies fever(s) ENT Denies epistaxis and Denies nasal discharge Card Denies chest pain Resp Denies chest congestion, Denies cough and Denies hemoptysis GI Denies diarrhea and Denies nausea Skin/Breast Denies rash Neuro Reports no additional complaints Psych Reports no additional complaints Endo Reports no additional complaints Physical exam (Primary Care) Tobacco/Smoking Status: Tobacco use Status Tobacco use date assessed 09/22/24 03/23/25 11:13 Patient Tobacco Use Status Never used Tobacco 03/23/25 11:13 e-Cigarette/Vaping Use Never Used 03/23/25 11:13 Thrive Assessment: Date of Thrive Assessment Date Thrive assessed 09/22/24 03/23/25 11:13 Telehealth Telehealth Telehealth Platform: [facility] Location of provider rendering services: practice address Location of patient: address on file Patient Identification confirmed using: Name, : Yes Telehealth method: video Patient verbally consented to treatment: Yes Patient verbally consented to billing insurance company: Yes Patient informed of any privacy concerns related to visit: Yes Minutes spent on Phone/Video with Pt.: 13 Coding Level of Care Code Tele Est Pt Level 3 (60775) Diagnoses Type 2 diabetes mellitus without complication, without long-term current use of insulin E11.9 Diabetes mellitus complication status: without complication Diabetes mellitus terminal make up operator insulin use: without retirement use Diabetic polyneuropathy associated with type 2 diabetes mellitus E11.42 Diabetes mellitus complication detail: diabetic polyneuropathy Diabetes mellitus type: type 2 Anxiety, generalized F41.1 Lipid disorder E78.9 Esophageal dysfunction K22.4 Assessment & Plan Assessment & Plan (1) T2DM (type 2 diabetes mellitus): Code(s): E11.9 - Type 2 diabetes mellitus without complications Category: Medical Qualifiers: Diabetes mellitus complication status: without complication Diabetes mellitus terminal make up operator insulin use: without terminal make up operator use Qualified Code(s): E11.9 - Type 2 diabetes mellitus without complications (2) Diabetic neuropathy: Code(s): E11.40 - Type 2 diabetes mellitus with diabetic neuropathy, unspecified Category: Medical Qualifiers: Diabetes mellitus complication detail: diabetic polyneuropathy Diabetes mellitus type: type 2 Qualified Code(s): E11.42 - Type 2 diabetes mellitus with diabetic polyneuropathy (3) Anxiety, generalized: Code(s): F41.1 - Generalized anxiety disorder Category: Medical (4) Lipid disorder: Code(s): E78.9 - Disorder of lipoprotein metabolism, unspecified Category: Medical (5) Esophageal dysfunction: Code(s): K22.4 - Dyskinesia of esophagus Category: Medical Plan Patient is 67-year-old female , its her regular f.u apt Patient has history of diabetes, diabetic neuropathy, esophageal motility disorder Anxiety disorder, lipid disorder arthrosis, vitamin-D deficiency, chronic GERD She is seeing Dr. Martinez for Gastroenterology Diabetes management is through PCP office Hemoglobin A1c is 6.7 on recent labs Medications: Patient is on atorvastatin 40 mg Celebrex [ no longer taking ] Vitamin-D Trulicity 1.5 mg Flonase nasal spray Lisinopril 2.5 mg And alprazolam 0.5 mg b.i.d. p.r.n. for anxiety thru Dr Bran Pantoprazole [address] Martinez Follow-up 4 months Medications: New fluticasone propionate 50 mcg/actuation 1 spray intranasal DAILY 16 grams 2RF Refilled atorvastatin 40 mg PO DAILY 90 tabs 1RF E11.65 - Type 2 diabetes mellitus with hyperglycemia metformin ER 1,000 mg (2 x 500 mg) PO BID 360 tabs 0RF E11.65 - Type 2 diabetes mellitus with hyperglycemia dulaglutide takes on Wednesdays 1.5 mg (0.5 mL) subcut QWEEK 6.5 mL 3RF 90 days
== END 2025-03-23 12:37 | disposition home or self-care (01) ==
LOC: HO.HMCC 08:39
PROVIDERS: PCP Internal Medicine; Visit Provider Internal Medicine
DX: E11.42 Type 2 diabetes mellitus with diabetic polyneuropathy (principal); F41.1 Generalized anxiety disorder; E78.9 Disorder of lipoprotein metabolism, unspecified; K22.4 Dyskinesia of esophagus